=== PATIENT | female | born 1985 | race Hispanic/Latino ===

== ENCOUNTER 2019-05-29 04:02 | Emergency (ER) | payer MEDICAID, SELFPAY ==
[~2019-05-29] VITALS: Ht 167.6 cm; Wt 111.8 kg
[2019-05-29] MEDS ORDERED: HYDR-3713 PO (04:10)
[2019-05-29] MEDS ORDERED: NORCO, ANEXSIA 5/325MG TABLET (HYDROcodone/ACETAMINOPHEN) PO ONE (07:45)
[2019-05-29 08:22] VITALS: BP 136/74
== END 2019-05-29 08:23 | disposition home or self-care (01) ==
LOC: M ED 04:02
DX: O99.89 Other specified diseases and conditions complicating pregnancy, childbirth and the puerperium (principal); G89.29 Other chronic pain; R51 Headache; Z3A.20 20 weeks gestation of pregnancy

== ENCOUNTER 2019-06-23 13:19 | Emergency (ER) | payer MEDICAID ==
[~2019-06-23] VITALS: Ht 167.6 cm; Wt 111.1 kg
[~2019-06-23 13:19] MED LIST changes: -MACR100C43 PO; -NORC1TAB7 PO; -ONDA4TAB6 PO; -SERT50TA29
[2019-06-23] MEDS ORDERED: SERT50TA29 (13:29)
[2019-06-23 14:08] LABS: BASO % 0.2 % (0.0-1.0); EOS # 0.1 10^3/uL (0.0-0.5); EOS % 0.5 % (0.0-3.0); HEMATOCRIT 38.8 % (36.0-47.0); HEMOGLOBIN 12.3 g/dl (12.0-15.5); LYMPH # 1.5 10^3/uL (1.5-5.0); LYMPH % 13.2 % (24.0-44.0); MEAN CORPUSCULAR HGB CONC 31.7 g/dl (32.0-36.5); MEAN CORPUSCULAR VOLUME 88.4 fl (80.0-96.0); MONO # 0.5 10^3/uL (0.0-0.8); MONO % 4.3 % (0.0-5.0); NEUTROPHILS % 81.3 % (36.0-66.0); PLATELET COUNT, AUTOMATED 296 10^3/uL (150-450); RED BLOOD COUNT 4.39 10^6/uL (4.00-5.40); WHITE BLOOD COUNT 11.1 10^3/uL (4.0-10.0)
[2019-06-23 14:28] LABS: BLOOD UREA NITROGEN 6 MG/DL (7-18); CALCIUM LEVEL 8.4 MG/DL (8.5-10.1); CARBON DIOXIDE LEVEL 24 MEQ/L (21-32); CHLORIDE LEVEL 106 MEQ/L (98-107); CREATININE FOR GFR 0.41 MG/DL (0.55-1.30); GLOMERULAR FILTRATION RATE > 60.0 (>60); GLUCOSE, FASTING 80 MG/DL (70-100); POTASSIUM SERUM 4.1 MEQ/L (3.5-5.1); SODIUM LEVEL 138 MEQ/L (136-145)
[2019-06-23] MEDS ORDERED: NORCO, ANEXSIA 5/325MG TABLET (HYDROcodone/ACETAMINOPHEN) PO ONE (16:30)
[2019-06-23] MEDS ORDERED: NS 1,000 ML IV ONE (16:30)
[2019-06-23] MEDS ORDERED: ONDANSETRON 4MG/2ML VIAL (J2405) IV ONE (16:30)
--- NOTE | 2019-06-23 17:45 | REP ---
OB ULTRASOUND: Real-time sonographic evaluation of the gravid uterus is performed. There is a single living intrauterine gestation. The estimated gestational age is 25 weeks 2 days based on today's ultrasound, 25 weeks 0 days based on LMP, EDC based on LMP 10/06/2019. There is appropriate growth. BPD 61 mm = 24 weeks 6 days, at the 48th percentile. HC 231 mm = 25 weeks 1 days, at the 53rd percentile. AC 213 mm = 25 weeks 6 days, at the 67th percentile. Femur length 47 mm = 25 weeks 4 days, at the 62nd percentile. HC/AC ratio 1.09 within normal range. Estimated weight 830 grams at the 61st percentile. Cervix is closed and measures 3.3 cm in length. heart rate 155 beats per minute. Visualized anatomy today includes the stomach, cord insertion, three vessel cord, kidneys, bladder and spine which were all grossly unremarkable. There is limited visualization of the anatomy due to patient's anterior abdominal wall hernia. Lateral ventricles and posterior fossa appear unremarkable. position is vertex. Placenta is anterior and grade 0 with no previa or abruption. Amniotic fluid appears within normal limits. Electronically Signed by John Chaney MD 06/24/2019 10:28 P
[2019-06-23 20:23] LABS: ALBUMIN 2.6 GM/DL (3.2-5.2); ALT/SGPT 25 U/L (12-78); BILIRUBIN,DIRECT 0.1 MG/DL (0.0-0.2); BILIRUBIN,TOTAL 0.3 MG/DL (0.2-1.0); TOTAL PROTEIN 6.8 GM/DL (6.4-8.2)
[2019-06-23] MEDS ORDERED: ONDA4TAB6 PO (20:39)
[2019-06-23] MEDS ORDERED: MACR100C43 PO (20:39)
[2019-06-23] MEDS ORDERED: NORC1TAB7 PO (20:39)
[2019-06-23 20:51] VITALS: BP 129/71
--- NOTE | 2019-06-24 07:55 | REP ---
ULTRASOUND ANTERIOR ABDOMINAL WALL: Real-time sonographic evaluation of the anterior abdominal wall performed at the site of a suspected hernia. In the midline of the abdomen, there appears to be a defect of the abdominal wall approximately 3.8 cm in diameter. There appears to be a small amount of mesenteric fat protruding through the defect. This was not reducible with transducer pressure. Preliminary report provided by [facility] at the time of the exam. Electronically Signed by John Chaney MD 06/24/2019 10:37 P
--- NOTE | 2019-06-24 07:58 | REP ---
ULTRASOUND RIGHT LOWER QUADRANT: Real-time sonographic evaluation of the right lower quadrant to evaluate possible appendicitis. The appendix is not definitely visualized. The study is limited due to patient body habitus and bowel gas. The patient is . The heart rate is 147 beats per minute. Incidental note is made of gallstones in the gallbladder. Common bile duct measures 5 mm. Preliminary report provided by [facility] at the time of the exam. Electronically Signed by John Chaney MD 06/24/2019 10:38 P
== END 2019-06-23 20:53 | disposition home or self-care (01) ==
LOC: M ED 13:19
DX: O99.89 Other specified diseases and conditions complicating pregnancy, childbirth and the puerperium (principal); K43.9 Ventral hernia without obstruction or gangrene; O99.52 Diseases of the respiratory system complicating childbirth; J45.909 Unspecified asthma, uncomplicated; O26.619 Liver and biliary tract disorders in pregnancy, unspecified trimester; Z79.2 Long term (current) use of antibiotics; Z86.19 Personal history of other infectious and parasitic diseases; Z3A.25 25 weeks gestation of pregnancy; R93.9 Diagnostic imaging inconclusive due to excess body fat of patient
CPT/HCPCS: 76705; 76811; 80048; 80076; 81001; 83605; 84702; 85025; 85027; 86762; 86780; 86803; 86850; 86900; 86901; 87086; 87340; 87389; 96374; 99284; J2405

== ENCOUNTER → 2019-06-23 | Outpatient (REF) | payer MEDICAID ==
[~2019-06-23] MED LIST: HYDR-3713 PO; MACR100C43 PO; NORC1TAB7 PO; ONDA4TAB6 PO; SERT50TA29
[2019-06-23 13:42] LABS: HEMOGLOBIN 12.2 g/dl (12.0-15.5); MEAN CORPUSCULAR HEMOGLOBIN 28.8 pg (27.0-33.0); MEAN CORPUSCULAR VOLUME 87.5 fl (80.0-96.0); PLATELET COUNT, AUTOMATED 309 10^3/uL (150-450); RED BLOOD COUNT 4.23 10^6/uL (4.00-5.40); WHITE BLOOD COUNT 9.9 10^3/uL (4.0-10.0)
[2019-06-24 02:42] LABS: HCG, SERUM QUANTITATIVE 9793 MIU/ML
[2019-06-24 10:34] LABS: RUBELLA IgG QUALITATIVE IMMUNE (IMMUNE)
[2019-06-24 10:35] LABS: HEPATITIS B SURFACE ANTIGEN NEGATIVE (NEGATIVE)
[2019-06-24 11:03] LABS: HEPATITIS C VIRUS ABY INDEX < 0.0 INDEX (<0.8)
[2019-06-24 11:04] LABS: HIV 1&2 SCREEN CENTAUR NEGATIVE (NEGATIVE)
[2019-06-25 14:07] LABS: HEMOGLOBIN A 97.7 % (96.4-98.8); HEMOGLOBIN A2 2.3 % (1.8-3.2); HGB SOLUBILITY Negative (Negative)
== END ==
LOC: M LAB REF 12:46
PROVIDERS: ATTEND Obstetrics & Gynecology
DX: O36.80X0 Pregnancy with inconclusive fetal viability, not applicable or unspecified (principal)

== ENCOUNTER → 2019-07-14 | Outpatient (CLI) | payer MEDICAID, OTHER ==
[~2019-07-14] MED LIST changes: +MACR100C43 PO; +NORC1TAB7 PO; +ONDA4TAB6 PO; +SERT50TA29
--- NOTE | 2019-07-14 16:37 | REP ---
Clinical: Anatomical evaluation. Comparison: 06/23/2019 . Findings: Examination demonstrates a single live intrauterine in cephalic presentation. motion is identified by technologist. Placenta is noted the anterior and grade I without evidence for placenta previa or abruption. Amniotic fluid volume is normal. Cervix measures 4.3 cm in length and appears closed. No evidence for nuchal cord. Gestational age by LMP 28 weeks 0 days with SHEY 10/06/2019 . Gestational age by current measurements 28 weeks 5 days with SHEY 10/01/2019 . FHR equals 153 beats per minute. Estimated weight 1294 grams ( 63rd percentile). Amniotic fluid index: 17.3 cm Anatomical assessment demonstrates normal structures including cranium, choroid plexus, cavum, cerebellum/posterior fossa, facial features, lungs, four-chamber heart/ventricular outflow tracts, diaphragm, stomach, cord insertion/three-vessel cord, kidneys/bladder, and extremities. Impression: 1. Single live intrauterine in cephalic presentation demonstrating appropriate interval growth. 2. In conjunction with prior examination anatomical assessment is complete and normal. Electronically Signed by Rufus Marinelli MD 07/14/2019 04:29 P
== END ==
LOC: M RAD 15:04
PROVIDERS: ATTEND Obstetrics & Gynecology
DX: Z34.82 Encounter for supervision of other normal pregnancy, second trimester (principal)

== ENCOUNTER → 2019-07-27 | Outpatient (CLI) | payer OTHER ==
[2019-07-27 14:20] LABS: HEMATOCRIT 36.5 % (36.0-47.0); MEAN CORPUSCULAR HEMOGLOBIN 28.9 pg (27.0-33.0); MEAN CORPUSCULAR HGB CONC 32.9 g/dl (32.0-36.5); PLATELET COUNT, AUTOMATED 269 10^3/uL (150-450); RED BLOOD COUNT 4.15 10^6/uL (4.00-5.40); WHITE BLOOD COUNT 9.3 10^3/uL (4.0-10.0)
== END ==
LOC: M LAB 12:35
PROVIDERS: ATTEND Physician Assistant
DX: Z34.03 Encounter for supervision of normal first pregnancy, third trimester (principal)

== ENCOUNTER → 2019-07-27 | Outpatient (CLI) | payer OTHER ==
[2019-07-27 14:20] LABS: BASO % 0.2 % (0.0-1.0); EOS # 0.1 10^3/uL (0.0-0.5); EOS % 1.2 % (0.0-3.0); HEMATOCRIT 36.3 % (36.0-47.0); HEMOGLOBIN 12.1 g/dl (12.0-15.5); LYMPH # 1.4 10^3/uL (1.5-5.0); LYMPH % 15.3 % (24.0-44.0); MEAN CORPUSCULAR HEMOGLOBIN 29.2 pg (27.0-33.0); MEAN CORPUSCULAR HGB CONC 33.3 g/dl (32.0-36.5); MEAN CORPUSCULAR VOLUME 87.7 fl (80.0-96.0); MONO # 0.4 10^3/uL (0.0-0.8); MONO % 4.6 % (0.0-5.0); NEUTROPHILS # 7.4 10^3/uL (1.5-8.5); PLATELET COUNT, AUTOMATED 272 10^3/uL (150-450); RED BLOOD COUNT 4.14 10^6/uL (4.00-5.40); WHITE BLOOD COUNT 9.4 10^3/uL (4.0-10.0)
[2019-07-27 14:53] LABS: ALBUMIN 2.3 GM/DL (3.2-5.2); ALT/SGPT 32 U/L (12-78); BILIRUBIN,TOTAL 0.2 MG/DL (0.2-1.0); BLOOD UREA NITROGEN 7 MG/DL (7-18); CALCIUM LEVEL 8.3 MG/DL (8.5-10.1); CARBON DIOXIDE LEVEL 25 MEQ/L (21-32); CHLORIDE LEVEL 106 MEQ/L (98-107); CREATININE FOR GFR 0.46 MG/DL (0.55-1.30); FERRITIN 10 NG/ML (8-252); GLOMERULAR FILTRATION RATE > 60.0 (>60); GLUCOSE, FASTING 144 MG/DL (70-100); IRON (FE) 66 UG/DL (50-170); RHEUMATOID FACTOR QUANT < 10.0 IU/ML (<15.0); SODIUM LEVEL 137 MEQ/L (136-145); TOTAL PROTEIN 6.3 GM/DL (6.4-8.2)
[2019-07-27 15:00] LABS: VITAMIN B12 LEVEL 296 PG/ML (247-911)
[2019-07-28 14:17] LABS: ANTI DOUBLE STRAND-DNA AB 1 IU/mL (0-9); ANTINUCLEAR ANTIBODIES DIRECT Positive (Negative); RNP ANTIBODIES 1.3 AI (0.0-0.9); SJOGREN'S ANTI SS-A <0.2 AI (0.0-0.9); SJOGREN'S ANTI SS-B <0.2 AI (0.0-0.9); SMITH ANTIBODIES <0.2 AI (0.0-0.9)
== END ==
LOC: M LAB 12:32
PROVIDERS: ATTEND Physician Assistant
DX: M25.532 Pain in left wrist (principal)

== ENCOUNTER → 2019-08-04 | Outpatient (CLI) | payer OTHER | LOC: M LAB 07:12 | PROVIDERS: ATTEND Obstetrics & Gynecology | DX: R73.02 Impaired glucose tolerance (oral) (principal) ==

== ENCOUNTER 2019-08-16 00:10 | Outpatient (CLI) | payer OTHER ==
[~2019-08-16] VITALS: Ht 167.6 cm; Wt 112.3 kg
[2019-08-16 00:44] VITALS: BP 137/89
[2019-08-16] MEDS ORDERED: ACETAMINOPHEN 500 MG TAB PO ONE (01:00)
[2019-08-16 06:53] VITALS: BP 129/77
[2019-08-16] MEDS ORDERED: CYCL10TA PO (14:45)
== END 2019-08-16 06:53 ==
LOC: M LDO 00:10
PROVIDERS: ATTEND Obstetrics & Gynecology
DX: O47.03 False labor before 37 completed weeks of gestation, third trimester (principal); Z3A.34 34 weeks gestation of pregnancy

== ENCOUNTER 2019-08-28 19:28 | Outpatient (CLI) | payer OTHER ==
[~2019-08-28] VITALS: Ht 167.6 cm; Wt 113.9 kg
[~2019-08-28 19:28] MED LIST changes: +CYCL10TA PO
[2019-08-28 20:22] VITALS: BP 136/81
--- NOTE | 2019-08-28 20:28 | IPNPDOC ---
Text Note Date of Service The patient was seen on 08/28/19. NOTE 33 yo at 34+4 EGA presenting to the labor floor complaining of leakage of fluid. She has been feeling more moisture all day, and has noticed increased discharge which is thicker than normal. It is worse when she changes position from sitting to standing. She urinates a little when she coughs. She says that she soaked a panty liner, she did not have a pad at home. She presented to the labor floor to rule out rupture of membranes. Gravid female in no acute distress Sterile Vaginal Exam: No pooling, cervix closed, thick white discharge Nitrazine negative Slide: no ferning or hyphae FHR: 150 bpm, mod variability [place]: No contractions Rupture of membranes ruled out. Most likely due to leaking urine. Warning signs, signs and symptoms of labor and leakage of fluid discussed. Contact information given. She should follow up with Dr. Valerio as scheduled on 09/01/2019. GME ATTESTATION GME ATTESTATION My faculty preceptor for this patient encounter was physically present during the encounter and was fully available. All aspects of the patient interview, examination, medical decision making process, and medical care plan development were reviewed and approved by the faculty preceptor. The faculty preceptor is aware and concurs with the plan as stated in the body of this note and will attest to such by his/her cosignature. ALEKSEY BRICENO D.O. Aug 28, 2019 20:28
== END 2019-08-28 20:25 | disposition home or self-care (01) ==
LOC: M LDO 19:28
PROVIDERS: ATTEND Advanced Practice Midwife
DX: O26.893 Other specified pregnancy related conditions, third trimester (principal); R32 Unspecified urinary incontinence; Z3A.34 34 weeks gestation of pregnancy; Z79.899 Other long term (current) drug therapy

== ENCOUNTER → 2019-09-01 | Outpatient (REF) | payer OTHER | LOC: M LAB REF 16:10 | PROVIDERS: ATTEND Obstetrics & Gynecology | DX: Z34.83 Encounter for supervision of other normal pregnancy, third trimester (principal) ==

== ENCOUNTER 2019-09-23 10:43 | Inpatient (IN) | payer OTHER ==
[~2019-09-23] VITALS: Ht 167.6 cm; Wt 118.0 kg
[2019-09-23] VITALS (7 sets, daily range): BP systolic 117–135; BP diastolic 70–87
[~2019-09-23 10:43] MED LIST changes: +CYCL-707 PO; -CYCL10TA PO
[2019-09-23] MEDS ORDERED: miSOPROStol 50 MCG 1/2 TAB (S0191) PO PRN (11:00)
[2019-09-23] MEDS: LR 1,000 ML IV SCH ×2 (12:00→15:51)
[2019-09-23 12:33] LABS: HEMATOCRIT 32.8 % (36.0-47.0); MEAN CORPUSCULAR HEMOGLOBIN 28.8 pg (27.0-33.0); MEAN CORPUSCULAR HGB CONC 33.5 g/dl (32.0-36.5); MEAN CORPUSCULAR VOLUME 85.9 fl (80.0-96.0); PLATELET COUNT, AUTOMATED 176 10^3/uL (150-450); RED BLOOD COUNT 3.82 10^6/uL (4.00-5.40)
[2019-09-23 13:01] LABS: ALT/SGPT 24 U/L (12-78); BILIRUBIN,TOTAL 0.2 MG/DL (0.2-1.0); CREATININE FOR GFR 0.48 MG/DL (0.55-1.30); GLOMERULAR FILTRATION RATE > 60.0 (>60); LDH LACTATE DEHYDROGENASE 243 U/L (84-246); URIC ACID 4.7 MG/DL (2.6-6.0)
[2019-09-23] MEDS ORDERED: PRENTAB9 PO (13:31)
[2019-09-23] MEDS ORDERED: MAPA500T2 PO (13:31)
[2019-09-23 13:55] LABS: CREATININE,RANDOM URINE 38.4 MG/DL; TOTAL PROTEIN,RANDOM URINE 101.1 MG/DL (0.0-12.0)
--- NOTE | 2019-09-23 14:22 | REP ---
LIMITED OB ULTRASOUND: REASON: Assess position and amniotic fluid. Multiple ultrasonographic images of the gravid uterus show a single living intrauterine gestation in the myriam breech presentation. Doppler interrogation of the heart shows a heart rate of 131 beats per minute. The placenta is anterior and not low lying. The subjective amniotic fluid volume is within normal limits. The calculated amniotic fluid index is 16.6 within the expected range 7.3 to 23.5. The umbilical cord was seen to drape over the neck. A nuchal cord cannot be ruled out. Doppler interrogation of the umbilical artery shows an A/B ratio of 2.07. This is within normal range. The placenta is anterior and not low lying. IMPRESSION: Single living intrauterine gestation as described above. No further workup is requested or performed. Electronically Signed by Pedro Gregory DO 09/23/2019 02:26 P
--- NOTE | 2019-09-23 15:35 | REP ---
OBSTETRIC SONOGRAPHY: Limited followup exam. HISTORY: Estimated weight. Comparison study earlier this date. The patient returns for new request of estimated weight. FINDINGS: There is evidence of appropriate interval growth since prior study from July 14, 2019. Biometry Chart: BPD 9.2 cm = 37 weeks 3 days HC 35.1 cm = 40 weeks 6 days AC 35.0 cm = 38 weeks 6 days HL 7.8 cm = 39 weeks 5 days HC/AC ratio normal 1.00 Cephalic index normal 0.72. Estimated weight 3695 grams, 8 pounds 2 ounces, 73rd percentile for 38 weeks 2 days. KARLENE normal 16.6 cm. heart rate 150 beats per minute. S/D ratio in the umbilical cord artery by Doppler normal 2.07. IMPRESSION: Single intrauterine gestation at 39 weeks 2 days by today's composite criteria. Estimated weight 73rd percentile 38 weeks 2 days. 8 pounds 2 ounces. Electronically Signed by Sadiq Reagan MD 09/23/2019 03:43 P
[2019-09-23] MEDS ORDERED: ceFAZolin SOD 2 GM in IV 1 EA IV ONE (16:45)
[2019-09-23] MEDS ORDERED: BICITRA 30ML SOLN UDC PO ONE (16:45)
[2019-09-23] MEDS ORDERED: AZITHROMYCIN INJ 500 MG, VIAL MATE ADAPTER 1 EACH in D5W 250 ML IV ONE (17:00)
[2019-09-23] MEDS ORDERED: OXYTOCIN 30 UNITS IN 0.9% NaCl 500ML IV BAG (J2590) As Ordered ONE (18:58)
[2019-09-23] MEDS ORDERED: MORPHINE PRES-FREE INJ 10 MG/10 ML VIAL (J2274) As Ordered ONE (18:58)
[2019-09-23] MEDS ORDERED: NALOXONE INJ 0.4MG/1ML VIAL (J2310 PER 1MG) IV PRN ×2 (19:56)
[2019-09-23] MEDS ORDERED: ONDANSETRON 4MG/2ML VIAL IV PRN ×2 (19:56→21:00)
[2019-09-23] MEDS ORDERED: diphenhydrAMINE 50MG/ML VIAL (J1200) IV PRN (19:56)
[2019-09-23] MEDS ORDERED: METOCLOPRAMIDE INJ 10MG/2ML VIAL (J2765 PER 1) IV PRN (19:56)
[2019-09-23] MEDS ORDERED: NALBUPHINE HCL 10 MG/ML AMP (J2300) IV PRN (19:56)
[2019-09-23] MEDS ORDERED: BUPIVACAINE/DEXTROSE 0.75% 2 ML AMP As Ordered ONE (19:58)
[2019-09-23] MEDS ORDERED: dexameTHASONE 4 MG/ML 1ML VIAL (J1100 PER 1MG) As Ordered ONE (20:14)
[2019-09-23] MEDS ORDERED: ONDANSETRON 4MG/2ML VIAL As Ordered ONE ×2 (20:14→21:34)
[2019-09-23] MEDS ORDERED: PHENYLephrine HCL 500 MCG/5 ML (100MCG/ML) SYRINGE (J2370) As Ordered ONE (20:15)
[2019-09-23] MEDS ORDERED: ePHEDrine SULFATE 25 MG/5 ML(5MG/ML) SYRINGE As Ordered ONE (20:15)
[2019-09-23 20:33] LABS: CORD GAS HCO3 A 25.4 MEQ/L; CORD GAS O2 SAT A 56.9 %; CORD GAS PCO2 A 58.8 mmHg; CORD GAS PH A 7.253 UNITS; CORD GAS PO2 A 29.5 mmHg; CORD GAS TCO2 A 27.2 MEQ/L
[2019-09-23 20:35] LABS: CORD GAS ABE V -1.9; CORD GAS HCO3 V 23.3 MEQ/L; CORD GAS PCO2 V 41.4 mmHg; CORD GAS PH V 7.369 UNITS; CORD GAS PO2 V 19.6 mmHg; CORD GAS SBC V 21.5 MEQ/L; CORD GAS TCO2 V 24.6 MEQ/L
[2019-09-23] MEDS ORDERED: KETOROLAC 60 MG/2 ML VIAL As Ordered ONE (20:38)
[2019-09-23] MEDS ORDERED: oxyCODONE 5MG TAB PO PRN (21:00)
[2019-09-23] MEDS ORDERED: KETOROLAC 30 MG/ML 1ML VIAL IV PRN (21:00)
[2019-09-23] MEDS ORDERED: fentaNYL 100 MCG/2 ML INJECTION (J3010) IV PRN (21:00)
[2019-09-23] MEDS ORDERED: OXYTOCIN DRIP 30 UNITS in IV 1 EA IV SCH (21:02)
[2019-09-23] MEDS ORDERED: MEASLES,MUMPS,RUBELLA VACCINE INJ (MMR-II) (90707) SC SCH (21:15)
[2019-09-23] MEDS ORDERED: MOM 30ML SUSPENSION UDC PO PRN (21:15)
[2019-09-23] MEDS ORDERED: ONDANSETRON 4 MG TAB PO PRN (21:15)
[2019-09-23] MEDS ORDERED: RHOGAM 300 MCG (1500 IU) INJ (J2790) IM SCH (21:15)
[2019-09-23] MEDS: PERCOCET 5MG/325MG TAB PO PRN (23:58)
[2019-09-24 01:15] VITALS: BP 131/69
[2019-09-24 02:17] VITALS: BP 135/65
[2019-09-24] MEDS: IBUPROFEN 800 MG TAB PO SCH ×3 (04:58→21:19)
[2019-09-24 05:14] VITALS: BP 122/69
[2019-09-24] MEDS: PERCOCET 5MG/325MG TAB PO PRN ×2 (06:28→23:51)
[2019-09-24 06:55] LABS: HEMATOCRIT 30.9 % (36.0-47.0); HEMOGLOBIN 10.2 g/dl (12.0-15.5); MEAN CORPUSCULAR HEMOGLOBIN 28.5 pg (27.0-33.0); MEAN CORPUSCULAR VOLUME 86.3 fl (80.0-96.0); PLATELET COUNT, AUTOMATED 182 10^3/uL (150-450); RED BLOOD COUNT 3.58 10^6/uL (4.00-5.40); WHITE BLOOD COUNT 14.7 10^3/uL (4.0-10.0)
[2019-09-24 07:24] LABS: ALT/SGPT 19 U/L (12-78); BILIRUBIN,TOTAL 0.2 MG/DL (0.2-1.0); CREATININE FOR GFR 0.51 MG/DL (0.55-1.30); GLOMERULAR FILTRATION RATE > 60.0 (>60); LDH LACTATE DEHYDROGENASE 206 U/L (84-246); URIC ACID 4.6 MG/DL (2.6-6.0)
[2019-09-24] MEDS: PRENATAL VITAMINS CHEWABLE TABLET PO SCH (09:00)
[2019-09-24] MEDS: DOCUSATE SODIUM 100 MG CAP PO SCH ×2 (10:19→21:19)
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
--- NOTE | 2019-09-24 21:08 | RO ---
DATE OF PROCEDURE: 09/23/2019 Ashley is a 34-year-old female, 3, para 2-0-0-2 who was admitted at 38-2/7 weeks gestation with preeclampsia. She was found to be in breech presentation, after a bedside ultrasound, confirmed by official ultrasound. In having an extensive discussion with the patient, the patient and the father of the baby decided to proceed with delivery via primary section. Risks and benefit discussed, and we will proceed with the primary section. PREOPERATIVE DIAGNOSES: 1. Term with preeclampsia. 2. Breech presentation, requesting delivery via primary section. POSTOPERATIVE DIAGNOSES: 1. Term with preeclampsia. 2. Breech presentation, requesting delivery via primary section. PROCEDURE: Primary low transverse section. SURGEON: Alberto Valerio DO REGIONAL VICE PRESIDENT SURGICAL SALES: Kimmy Ascencio CNM ANESTHESIA: COMPLICATIONS: None. ESTIMATED BLOOD LOSS: 500 mL. FINDINGS: Live female in oblique position. scores 8 and 9. weight 7 pounds. Normal-appearing tubes and ovaries. DESCRIPTION OF PROCEDURE: After obtaining informed consent, the patient was taken to the operating room where spinal anesthetic was found to be adequate. She was then draped and prepped in the usual sterile fashion in the supine position. At this point, with the help of Kimmy Ascencio, my office services assistant, a Pfannenstiel incision was made. This was carried down to fascia. Fascia was incised in a midline fashion and carried through laterally. Superior aspect of the fascia was then grasped with Teresa clamps, tented off and dissected off the rectus muscles sharply. The inferior aspect was dissected off in a similar fashion. Rectus muscles midline fashion. Peritoneum identified, peritoneal cavity entered bluntly. Superior and inferior dissection of the peritoneum was then done with good visualization of bladder. At this point, a Mobius skin retractor was placed. was then delivered after an internal cephalic version in a vertex position. The nose and mouth was bulb suctioned. Cord doubly clamped and cut, and the infant was handed over to the waiting warmer. Cord blood and cord gas were sent. Placenta removed manually. Uterus cleared of all clot and debris, and the uterine incision was then repaired in two separate layers of #0 Vicryl suture. Pelvis copiously irrigated with normal saline and suctioned out. Attention turned to the peritoneum, which was closed in a running fashion using #2-0 Vicryl. Fascia closed in two separate segments of #0 Vicryl sutures. All superficial bleeders coagulated, and the skin was reapproximated in a subcuticular fashion using #3-0 Vicryl on a Sebastian. Steri-Strips placed. The patient tolerated procedure well. She was then transferred to recovery room in stable condition.
[2019-09-24] MEDS ORDERED: diphenhydrAMINE 50MG CAP PO ONE (21:45)
[2019-09-24 22:00] VITALS: BP 120/68
[2019-09-25] MEDS: IBUPROFEN 800 MG TAB PO SCH ×2 (05:59→12:21)
[2019-09-25 06:00] VITALS: BP 114/59
[2019-09-25] MEDS ORDERED: BOOSTRIX/ADACEL VACCINE (DIPHTH/PERTUSS/ACELL/TETANUS) 0.5ML SYR IM ONE (09:00)
[2019-09-25] MEDS: PRENATAL VITAMINS CHEWABLE TABLET PO SCH (09:08)
[2019-09-25] MEDS: DOCUSATE SODIUM 100 MG CAP PO SCH (09:08)
[2019-09-25] MEDS ORDERED: PERCOCET PO (12:10)
[2019-09-25] MEDS ORDERED: IBUP80TA PO (12:10)
--- NOTE | 2019-09-29 16:22 | DSES ---
DATE OF ADMISSION: 09/23/2019 DATE OF DISCHARGE: 09/25/2019 FINAL DIAGNOSIS: Term in breech presentation. PROCEDURE DONE DURING THIS ADMISSION: Primary low transverse section. CONDITION UPON DISCHARGE: Stable. BRIEF HISTORY: Ashley is a 34-year-old female, 2, para 1-0-0-1, who was admitted at 38-4/7 weeks gestation with preeclampsia. She was found to be in breech presentation. At her request, a decision was made to proceed with a primary section. She underwent a primary low transverse section, was then transferred to [facility] for postoperative care. Postoperatively, she did well, remained afebrile all throughout her hospital stay. On postoperative day #2, she was found to be in stable condition. At this point, a decision was made to discharge the patient home. A prescription for ibuprofen and Percocet was sent for pain. She is further instructed to followup in the office in approximately 2 weeks for an incision check.
== END 2019-09-25 14:15 | disposition home or self-care (01) | DRG 540 ==
LOC: M LDI 10:43 → M OBS 22:35
PROVIDERS: ADMIT Obstetrics & Gynecology; ATTEND Obstetrics & Gynecology
PROC: 10D00Z1 Extraction of Products of Conception, Low, Open Approach (ICD-10-PCS; principal; 2019-09-23 20:30)
DX: O32.1XX0 Maternal care for breech presentation, not applicable or unspecified (principal); Z3A.38 38 weeks gestation of pregnancy; O14.94 Unspecified pre-eclampsia, complicating childbirth; Z37.0 Single live birth; O99.824 Streptococcus B carrier state complicating childbirth

== ENCOUNTER 2019-09-28 21:33 | Emergency (ER) | payer OTHER ==
[~2019-09-28] VITALS: Ht 167.6 cm; Wt 113.6 kg
[~2019-09-28 21:33] MED LIST changes: +IBUP80TA PO; +MAPA500T2 PO; +PERCOCET PO; +PRENTAB9 PO
[2019-09-28] MEDS ORDERED: SERT50TA29 PO (21:43)
[2019-09-28] MEDS ORDERED: MORPHINE 4 MG/ML 1ML VIAL/SYRINGE (J2270) IV ONE (22:15)
[2019-09-28] MEDS ORDERED: ONDANSETRON 4MG/2ML VIAL IV ONE (22:15)
[2019-09-28 22:25] LABS: BASO % 0.3 % (0.0-1.0); EOS # 0.1 10^3/uL (0.0-0.5); EOS % 1.8 % (0.0-3.0); HEMATOCRIT 32.1 % (36.0-47.0); HEMOGLOBIN 10.3 g/dl (12.0-15.5); LYMPH # 1.8 10^3/uL (1.5-5.0); LYMPH % 22.3 % (24.0-44.0); MEAN CORPUSCULAR HEMOGLOBIN 28.3 pg (27.0-33.0); MEAN CORPUSCULAR HGB CONC 32.1 g/dl (32.0-36.5); MEAN CORPUSCULAR VOLUME 88.2 fl (80.0-96.0); MONO # 0.8 10^3/uL (0.0-0.8); MONO % 10.3 % (0.0-5.0); NEUTROPHILS # 5.1 10^3/uL (1.5-8.5); NEUTROPHILS % 64.2 % (36.0-66.0); PLATELET COUNT, AUTOMATED 323 10^3/uL (150-450); RED BLOOD COUNT 3.64 10^6/uL (4.00-5.40)
[2019-09-28 22:36] LABS: INR 0.98; PROTHROMBIN TIME 12.7 SECONDS (11.8-14.0)
[2019-09-28 22:42] LABS: PARTIAL THROMBOPLASTIN TIME 26.7 SECONDS (25.0-38.4)
[2019-09-28] MEDS ORDERED: ISOVUE-370 76% 100ML VIAL As Ordered ONE (22:45)
[2019-09-28 22:58] LABS: ALBUMIN 2.1 GM/DL (3.2-5.2); ALT/SGPT 26 U/L (12-78); BILIRUBIN,DIRECT < 0.1 MG/DL (0.0-0.2); BILIRUBIN,TOTAL 0.2 MG/DL (0.2-1.0); BLOOD UREA NITROGEN 10 MG/DL (7-18); CALCIUM LEVEL 8.4 MG/DL (8.5-10.1); CARBON DIOXIDE LEVEL 27 MEQ/L (21-32); CHLORIDE LEVEL 106 MEQ/L (98-107); CREATININE FOR GFR 0.47 MG/DL (0.55-1.30); GLOMERULAR FILTRATION RATE > 60.0 (>60); GLUCOSE, FASTING 86 MG/DL (70-100); MAGNESIUM LEVEL 1.7 MG/DL (1.8-2.4); POTASSIUM SERUM 4.1 MEQ/L (3.5-5.1); SODIUM LEVEL 140 MEQ/L (136-145); URIC ACID 3.5 MG/DL (2.6-6.0)
[2019-09-28 23:44] LABS: APPEARANCE, URINE HAZY (CLEAR); BACTERIA, URINE AUTO NEGATIVE (NEGATIVE); BILIRUBIN, URINE AUTO NEGATIVE (NEGATIVE); BLOOD, URINE BLOOD 3+ (NEGATIVE); COLOR, URINE YELLOW (YELLOW); GLUCOSE, URINE (UA) AUTO NEGATIVE (NEGATIVE); KETONE, URINE AUTO NEGATIVE (NEGATIVE); LEUKOCYTE ESTERASE, URINE AUTO 1+ (NEGATIVE); MUCUS, URINE SMALL (NEGATIVE); NITRITE, URINE AUTO NEGATIVE (NEGATIVE); PROTEIN, URINE AUTO 2+ mg/dL (NEGATIVE); RBC, URINE AUTO 82 /HPF (0-3); SPECIFIC GRAVITY URINE AUTO 1.012 (1.002-1.035); SQUAMOUS EPITHELIAL CELL UR AU 4 /HPF (0-6); TRANSITIONAL EPITHELIAL AUTO 4 /HPF; UROBILINOGEN, URINE AUTO 0.2 mg/dL (0.0-2.0); WBC, URINE AUTO 33 /HPF (0-3)
--- NOTE | 2019-09-28 23:53 | REPVR ---
PROCEDURE INFORMATION: Exam: CT Abdomen And Pelvis With Contrast Exam date and time: 09/28/2019 10:06 PM Age: 34 years old Clinical indication: Abdominal pain; Generalized; Prior surgery; Surgery date: 3-7 days post-operative; Surgery type: C section; Additional info: Abd pain/ recent TECHNIQUE: Imaging protocol: Computed tomography of the abdomen and pelvis with intravenous contrast. Radiation optimization: All CT scans at this facility use at least one of these dose optimization techniques: automated exposure control; mA and/or kV adjustment per patient size (includes targeted exams where dose is matched to clinical indication); or iterative reconstruction. Contrast material: IS0; Contrast volume: 100 ml; Contrast route: AC; COMPARISON: Pelvis, limited US 06/23/2019 5:00 PM FINDINGS: Heart: No cardiomegaly or pericardial effusion. Lungs: The imaged portions of the lung bases are clear. The lungs were not fully imaged. Diaphragm: Intact. Liver: No liver lesion is seen. The contour of the liver is smooth. The liver is enlarged and measures 18.3 cm in craniocaudal dimension at the level of the right midclavicular line. Gallbladder and bile ducts: The gallbladder is distended. No calcified gallstones are seen. No gallbladder wall thickening, pericholecystic fluid, or pericholecystic inflammatory changes are identified. No dilation of the bile ducts is noted. No calcified stones are seen in the common bile duct. Pancreas: Normal. No dilation of the main pancreatic duct is noted. There is no inflammatory fat stranding around the pancreas to suggest acute pancreatitis. Spleen: Normal. No splenomegaly is noted. Incidental note is made of two small accessory spleens. Adrenals: Normal. No adrenal mass is noted. Kidneys and ureters: The kidneys are normal in appearance. No renal lesion is noted. No stones are noted in the kidneys or ureters. There is no hydronephrosis or hydroureter. There are no wedge-shaped areas of low attenuation in the kidneys to suggest pyelonephritis. There is no renal abscess or perinephric fluid collection. Stomach and bowel: The stomach is decompressed, limiting its optimal evaluation. The small bowel is unremarkable. There is no evidence for a bowel obstruction, strangulation, diverticulosis, diverticulitis, colitis, perforated viscus, pneumatosis intestinalis, intussusception, or volvulus. Appendix: Normal. There is no evidence for appendicitis. Intraperitoneal space: There is a 2 cm x 4.3 cm x 2.6 cm fluid collection containing a punctate focus of gas within the left side of the uterus along the cesarian section scar (images 105-112 of the axial series 201). Retroperitoneal space: No retroperitoneal fluid collection is noted. Vasculature: The abdominal aorta is patent, normal in caliber, and there is no dissection. The iliac arteries, common femoral arteries, renal arteries, celiac artery, superior mesenteric artery, and inferior mesenteric artery are patent. The portal veins, splenic vein, superior mesenteric vein, inferior mesenteric vein, and renal veins are patent. Lymph nodes: No enlarged lymph nodes. Bladder: The distended urinary bladder is normal in appearance. No stones or masses are seen in the bladder. Reproductive: The uterus is enlarged, anteverted, and there is a lower transverse section scar with punctate foci of gas within the uterus at the site of the scar. The ovaries are unremarkable. Bones/joints: No fracture or dislocation is noted. There is no suspicious osteolytic or osteoblastic lesion. There is a mild levoscoliosis of the lumbar spine. Soft tissues: There is a large midline ventral hernia located just above the umbilicus, which contains a portion of the mid transverse colon. There is a horizontal incision scar in the anterior pelvic wall. There is a small amount of hemorrhage and gas in the subcutaneous tissues of the anterior pelvic wall. There is nonspecific edema in the subcutaneous tissues posteriorly along the midline of the lumbar spine. IMPRESSION: 1. Status post section, and there is a 2 cm x 4.3 cm x 2.6 cm fluid collection containing a punctate focus of gas in the left side of the pelvis abutting the uterus, which may represent an abscess or postoperative seroma. 2. Large midline ventral hernia located just above the umbilicus, which contains a portion of the mid transverse colon. No bowel obstruction or strangulation. 3. Hepatomegaly. Electronically signed by: Ismael Henao On 09/28/2019 23:53:34 PM
[2019-09-29] MEDS ORDERED: KEFL500C17 PO (00:15)
[2019-09-29] MEDS ORDERED: diphenhydrAMINE 25MG CAP PO ONE (00:15)
[2019-09-29] MEDS ORDERED: COLA100C5 PO (00:15)
[2019-09-29 00:21] VITALS: BP 148/81
[2019-09-29] MEDS ORDERED: LACTOBACILLUS ACIDOPHILUS CAP (BACID) PO ONE (00:30)
[2019-09-29] MEDS ORDERED: CEPHALEXIN 500 MG CAP PO ONE (00:30)
--- NOTE | 2019-09-29 14:22 | ED PDOC ---
Post-Departure Follow-Up ct abd/p faxed to dr jiménez for fu Alis Sam MD September 29, 2019 14:22
== END 2019-09-29 00:53 | disposition home or self-care (01) ==
LOC: M ED 21:33
DX: G89.18 Other acute postprocedural pain (principal); R03.0 Elevated blood-pressure reading, without diagnosis of hypertension; R60.0 Localized edema; G50.0 Trigeminal neuralgia; J45.909 Unspecified asthma, uncomplicated; M26.629 Arthralgia of temporomandibular joint, unspecified side; F60.2 Antisocial personality disorder; F41.9 Anxiety disorder, unspecified; F32.9 Major depressive disorder, single episode, unspecified
CPT/HCPCS: 36415; 74177; 80048; 80076; 81001; 83735; 84550; 85025; 85610; 85730; 86850; 86900; 86901; 87086; 96374; 96375; 99284; J2270; J2405; Q9967

== ENCOUNTER → 2019-11-18 | Outpatient (CLI) | payer OTHER ==
[~2019-11-18] MED LIST changes: +COLA100C5 PO; +ISOVUE-370 76% 100ML VIAL As Ordered ONE; +KEFL500C17 PO; +PROAAER10 INH; +SERT50TA29 PO
--- NOTE | 2019-11-18 10:11 | REP ---
CT neck:. 11/18/2019. Indication: Neck pain. Neck fullness. Technique: Axial images of the neck soft tissues were obtained following IV administration of iodinated contrast with sagittal and coronal reconstructions provided. Comparison: None. Findings: There are no abnormal solid soft tissue masses, abnormal fluid collections or cervical lymphadenopathy. There are punctate radiopaque foreign bodies within the submental region. Loss the visualized lungs are clear. No significant ocular, intraorbital or intracranial abnormalities are detected. The paranasal sinuses and mastoid air cells are essentially clear. Impression: No cervical lymphadenopathy, abnormal solid soft tissue mass or abnormal fluid collection. Electronically Signed by Devon Vazquez DO 11/18/2019 10:03 A
== END ==
LOC: M RAD 08:53
PROVIDERS: ATTEND Internal Medicine Hematology & Oncology
DX: M54.2 Cervicalgia (principal)
CPT/HCPCS: 70491; Q9967

== ENCOUNTER 2020-01-18 21:10 | Observation (INO) | payer OTHER ==
[~2020-01-18] VITALS: Ht 167.6 cm; Wt 120.1 kg
[~2020-01-18 21:10] MED LIST changes: -ISOVUE-370 76% 100ML VIAL As Ordered ONE
[2020-01-18] MEDS ORDERED: LABE100T36 PO (21:25)
[2020-01-18] MEDS ORDERED: ALPR2TAB3 PO (21:25)
[2020-01-18] MEDS ORDERED: CITA20TA6 PO (21:25)
[2020-01-18] MEDS ORDERED: MELO15TA28 PO (21:25)
[2020-01-18] MEDS ORDERED: OXCA150T21 PO (21:25)
[2020-01-19] MEDS ORDERED: MORPHINE 4 MG/ML 1ML VIAL/SYRINGE (J2270) IV ONE (01:00)
[2020-01-19] MEDS ORDERED: LABETALOL 100 MG TAB PO ONE (01:00)
--- NOTE | 2020-01-19 01:00 | REPVR ---
PROCEDURE INFORMATION: Exam: CT Head Without Contrast Exam date and time: 01/19/2020 12:48 AM Age: 34 years old Clinical indication: Other: Facial pain; Patient HX: Trigeminal neuralgia HX; Additional info: CVA - nursing interventions must not delay CT TECHNIQUE: Imaging protocol: Computed tomography of the head without contrast. Radiation optimization: All CT scans at this facility use at least one of these dose optimization techniques: automated exposure control; mA and/or kV adjustment per patient size (includes targeted exams where dose is matched to clinical indication); or iterative reconstruction. COMPARISON: No relevant prior studies available. FINDINGS: Brain: Normal. No hemorrhage. Unremarkable white matter. No mass effect. Ventricles: Normal. No ventriculomegaly. Bones/joints: Unremarkable. No acute fracture. Sinuses: Visualized sinuses are unremarkable. No fluid levels. Mastoid air cells: Visualized mastoid air cells are well aerated. Soft tissues: Unremarkable. IMPRESSION: No acute intracranial abnormality. Electronically signed by: Natalia Lim On 01/19/2020 01:00:28 AM
[2020-01-19] MEDS ORDERED: ONDANSETRON 4MG/2ML VIAL As Ordered ONE (01:09)
[2020-01-19] MEDS ORDERED: ONDANSETRON 4MG/2ML VIAL IV ONE (01:15)
[2020-01-19 01:21] LABS: BASO % 0.3 % (0.0-1.0); EOS # 0.2 10^3/uL (0.0-0.5); EOS % 1.8 % (0.0-3.0); HEMATOCRIT 39.1 % (36.0-47.0); HEMOGLOBIN 12.4 g/dl (12.0-15.5); LYMPH # 2.7 10^3/uL (1.5-5.0); LYMPH % 24.5 % (24.0-44.0); MEAN CORPUSCULAR HEMOGLOBIN 26.7 pg (27.0-33.0); MEAN CORPUSCULAR HGB CONC 31.7 g/dl (32.0-36.5); MEAN CORPUSCULAR VOLUME 84.1 fl (80.0-96.0); MONO # 0.7 10^3/uL (0.0-0.8); MONO % 6.2 % (0.0-5.0); NEUTROPHILS # 7.4 10^3/uL (1.5-8.5); NEUTROPHILS % 66.8 % (36.0-66.0); PLATELET COUNT, AUTOMATED 376 10^3/uL (150-450); RED BLOOD COUNT 4.65 10^6/uL (4.00-5.40); WHITE BLOOD COUNT 11.1 10^3/uL (4.0-10.0)
[2020-01-19 01:34] LABS: INR 0.94; PROTHROMBIN TIME 12.8 SECONDS (11.8-14.0)
[2020-01-19 01:35] LABS: PARTIAL THROMBOPLASTIN TIME 29.4 SECONDS (25.0-38.4)
[2020-01-19 01:49] LABS: BLOOD UREA NITROGEN 17 MG/DL (7-18); CALCIUM LEVEL 8.4 MG/DL (8.5-10.1); CARBON DIOXIDE LEVEL 30 MEQ/L (21-32); CHLORIDE LEVEL 105 MEQ/L (98-107); CK-MB VALUE MASS < 1.0 NG/ML (<3.6); CPK CREATINE PHOSPHOKINASE 46 U/L (26-192); CREATININE FOR GFR 0.57 MG/DL (0.55-1.30); GLOMERULAR FILTRATION RATE > 60.0 (>60); GLUCOSE, FASTING 96 MG/DL (70-100); MB/CK RELATIVE INDEX 2.17 (< OR =4); POTASSIUM SERUM 4.3 MEQ/L (3.5-5.1); SODIUM LEVEL 136 MEQ/L (136-145); TROPONIN I < 0.02 NG/ML (< 0.10)
[2020-01-19] MEDS ORDERED: ASPIRIN 325 MG TAB PO ONE (02:15)
[2020-01-19] MEDS ORDERED: OXcarbazepine 150 MG TAB PO ONE ×2 (02:15→21:00)
[2020-01-19] MEDS ORDERED: PRENCHW PO (02:42)
[2020-01-19] MEDS ORDERED: VITA-172 PO (02:42)
[2020-01-19] MEDS ORDERED: ALPR0.5T3 PO (02:42)
[2020-01-19] MEDS ORDERED: FISH1000 PO (02:42)
[2020-01-19] MEDS ORDERED: PROAAER10 INH (02:42)
[2020-01-19] MEDS ORDERED: ONDANSETRON 4MG/2ML VIAL IV PRN (03:45)
--- NOTE | 2020-01-19 03:50 | HPEPDOC ---
General Date of Admission Jan 18, 2020 at 21:13 Date of Service: Jan 19, 2020 Chief Complaint The patient is a 34-year-old female admitted with a reason for visit of Trigeminal Nueralgia Of Right Side Of Face. Source: Patient Exam Limitations: No limitations Timing/Duration: Other (6PM on 01/18/2020) Severity: Mild, Moderate Associated Symptoms: Headaches, Nausea, Dizziness History of Present Illness Patient is a 34 yo female with history of trigeminal neuralgia and castleman disease presented to [facility] because of reported word finding difficulty, neck pain with stiffness, photophobia, electrical pain on right sided of face, squeezing feeling in right arm, and nausea. She also reported pressure in chest starting 7PM on 01/18/2020 which resolved at midnight after receiving pain medication and headache which resolved after receiving pain medication. She denies any extremity weakness, visual field loss, or dysphagia. Home Medications Scheduled Citalopram Hydrobromide (Citalopram HBr) 20 Mg Tablet, 20 MG PO DAILY, (Reported) Cyanocobalamin (Vitamin B-12) (Vitamin B-12) 500 Mcg Tablet, 500 MCG PO DAILY, (Reported) Labetalol HCl (Labetalol HCl) 100 Mg Tablet, 100 MG PO BID, (Reported) Meloxicam (Meloxicam) 15 Mg Tablet, 15 MG PO DAILY, (Reported) [place]-3 Fatty Acids/Fish Oil (Fish Oil 1,000 mg Capsule) 1 Each Capsule, 1,000 MG PO DAILY, (Reported) Oxcarbazepine (Oxcarbazepine) 150 Mg Tablet, 150 MG PO Q8H, (Reported) Pnv No.118/Iron Fumarate/FA ( 19 Chewable Tablet) 1 Each Tab.chew, 1 CHW PO DAILY, (Reported) Scheduled PRN Albuterol Sulfate (Proair Hfa) 8.5 Gm Hfa.aer.ad, 2 PUFF INH Q4H PRN for SHORTNESS OF BREATH, (Reported) Alprazolam (Alprazolam) 2 Mg Tablet, 0.5 MG PO BIDP PRN for anxiety, (Reported) Alprazolam (Alprazolam) 0.5 Mg Tablet, 0.5 MG PO BID PRN for ANXIETY, (Reported) Allergies Coded Allergies: No Known Drug Allergies (Verified Allergy, Unknown, 1/3/20) Attending Note I have independently interviewed and examined this patient at the bedside, and agree with the documented physical findings and management plan as written by my Resident physician. The patient's questions and concerns have been satisfactory addressed, and the patient was encouraged to contact the [place] office for any questions. Past Medical History Medical History Unspecified heart murmur asthma Castleman disease Trigeminal neuralgia abdominal hernia anxiety depression Surgical History Knee arthroscopy Large intestine mass removal Social History * Smoker: Denies Recent Travel/Sick Contacts: Denies: Recent sick contacts A-FIB/[facility] A-FIB History Current/History of A-Fib/PAF?: No Review of Systems Constitutional: Denies: Chills, Fever ENT: Reports: Head Aches, Other Symptoms (photophobia, neck pain, and neck stiffness. Right ear tinnitus) Pulmonary: Denies: Dyspnea Cardiovascular: Reports: Other Symptoms (chest pressure); Denies: Palpitations Gastrointestinal: Reports: Nausea; Denies: Vomiting, Abdominal Pain Neurological: Reports: Change in speech, Other Symptoms (right facial pain, right arm squeezing feeling, word finding difficulty. Denies extremity weakness) Physical Examination General Exam: Positive: Alert, Cooperative, Mild Distress Eye Exam: Positive: Conjunctiva & lids normal, Other Eye Symptoms (bilateral pupil equal and round); Negative: Ptosis ENT Exam: Positive: Atraumatic, Mucous membr. moist/pink Neck Exam: Positive: Supple, Other (no carotid bruit aus bilaterally) Chest Exam: Positive: Clear to auscultation, Normal air movement; Negative: Rales, Rhonchi, Wheezing Heart Exam: Positive: Rate Normal, Regular Rhythm, Normal S1, Normal S2, Murmurs Abdomen Exam: Positive: Normal bowel sounds, Soft; Negative: Tenderness Skin Exam: Positive: Nl turgor and temperature Neuro Exam: Positive: Strength at 5/5 X4 ext, Normal Tone, Cranial Nerves 3-12 NL, Other (mild word finding difficulty noted. Able to repeat "no, if, and, or, buts". Allodynia in right side face. Neg Kernig and Brudenski sign); Negative: Sensation Intact Psych Exam: Positive: Mental status NL, Anxiety (mild), Memory Intact, Oriented x 3 Vital Signs Vital Signs Date Time Temp Pulse Resp B/P (MAP) Pulse Ox O2 Delivery O2 Flow Rate FiO2 01/19/20 01:55 16 96 Room Air 01/19/20 01:26 64 137/92 01/18/20 21:12 97.8 Laboratory Data Labs 24H Laboratory Tests 2 01/19/20 01:00: Immature Granulocyte % (Auto) 0.4, Neutrophils (%) (Auto) 66.8H, Lymphocytes (%) (Auto) 24.5, Monocytes (%) (Auto) 6.2H, Eosinophils (%) (Auto) 1.8, Basophils (%) (Auto) 0.3, Neutrophils # (Auto) 7.4, Lymphocytes # (Auto) 2.7, Monocytes # (Auto) 0.7, Eosinophils # (Auto) 0.2, Basophils # (Auto) 0.0, Nucleated Red Blood Cells % (auto) 0.0, Prothrombin Time 12.8, Prothromb Time International Ratio 0.94, Activated Partial Thromboplast Time 29.4, Anion Gap 1L, Glomerular Filtration Rate > 60.0, Calcium Level 8.4L, Total Creatine Kinase 46, Creatine Kinase MB < 1.0, Creatine Kinase MB Relative Index 2.17, Troponin I < 0.02 CBC/BMP Laboratory Tests 01/19/20 01:00 Assessment/Plan 1. Trigeminal neuralgia. Right sided facial allodynia. Cont home med Oxycarbaz epine 150mg TID. Zofran PRN. Called Dr. Young regarding this patient and recommended MRI brain if concern for stroke and follow up outpatient for trigeminal neuralgia 2. R/o stroke. Word finding difficulty, also reported headache earlier. MRI and MRA head pending. Head CT unremarkable. Echo ordered with carotid US. Swallow eval, aspiration precaution, fall precaution, PT evaluation. Pt on tele. 324mg aspirin ordered upon admission with daily statin. Lipid panel ordered. Although patient reported neck stiffness and photophobia, she is able to move her neck, and there's no kernig/brudenski's sign, fever, chills, significant leukocytosis. Consider lumbar puncture with empiric antibiotics if patient leukocytosis increases or if fever/chills develop. 3. Depression. Cont home med Citalopram 4. Anxiety. Cont home med Citalopram and alprazolam PRN 5. Chest pressure, resolved. Precordial chest pressure lasting from 7pm to midnight on 01/18/2020, currently without any chest pain/pressure. Denies any palpitation. Pt on tele for r/o stroke. First cardiac marker panel neg, repeat cardiac panel. Echo already ordered as r/o stroke 6. DVT prophylaxis: lovenox, SCD, TEDS Plan / VTE VTE Prophylaxis Ordered?: Yes Plan Therapy: PT, Speech Diagnostics: Check Labs, Repeat Labs in AM, Ultrasound, CASTRO HEIDI DELANEY DO Jan 19, 2020 03:50 SURESH THOMAS MD Jan 19, 2020 04:20
[2020-01-19] MEDS ORDERED: ALPRAZolam 0.5 MG TAB PO PRN (04:00)
[2020-01-19] MEDS ORDERED: ALBUTEROL 90 MCG/ACT 8GM HFA INHALER INH PRN (04:00)
[2020-01-19] MEDS: ATORVASTATIN 20 MG TAB PO SCH ×2 (04:16→21:35)
[2020-01-19] MEDS: ENOXAPARIN 40MG/0.4ML SYRINGE (J1650 PER 10MG) SC SCH (04:24)
[2020-01-19] MEDS ORDERED: ACETAMINOPHEN 500 MG TAB PO PRN (05:00)
--- NOTE | 2020-01-19 05:11 | REPVR ---
PROCEDURE INFORMATION: Exam: US Duplex Bilateral Extracranial Arteries Exam date and time: 01/19/2020 4:47 AM Age: 34 years old Clinical indication: Pain; Numbness / parasthesia and speech disturbance; Right; Unspecified; Other: Facial; Additional info: R/O stroke TECHNIQUE: Imaging protocol: Real-time Duplex ultrasound scan of the bilateral carotid and vertebral arteries combining jenkins scale, color Doppler and spectral waveform analysis. Bilateral exam. COMPARISON: CT Head without contrast 01/19/2020 12:48 AM FINDINGS: Right common carotid artery: Unremarkable. No occlusion or stenosis. Waveforms are normal. Right internal carotid artery: Unremarkable. No occlusion or stenosis. Waveforms are normal. Right ICA/CCA ratio: Within normal limits. Right external carotid artery: No stenosis in the origin. Right vertebral artery: Unremarkable. Antegrade flow. Left common carotid artery: Mild atherosclerosis. No occlusion or stenosis. Waveforms are normal. Left internal carotid artery: Mild atherosclerosis. No occlusion or stenosis. Waveforms are normal. Left ICA/CCA ratio: Within normal limits. Left external carotid artery: No stenosis in the origin. Left vertebral artery: Unremarkable. Antegrade flow. IMPRESSION: No hemodynamically significant stenosis, or occlusion. Mild atherosclerosis of the left carotid bulb and left internal carotid artery. REFERENCES: SRU CRITERIA. The degree of internal carotid artery stenosis is based on criteria defined by the Society of Radiologists in Ultrasound (SRU). Normal is no stenosis. Mild is less than 50% stenosis. Moderate is 50-69% stenosis. Severe is greater than 69% stenosis to near occlusion. Near occlusion is a markedly narrowed lumen. Total occlusion is no detectable patent lumen. Electronically signed by: Natalia Lim On 01/19/2020 05:11:33 AM
[2020-01-19 07:40] LABS: HEMATOCRIT 38.3 % (36.0-47.0); HEMOGLOBIN 11.8 g/dl (12.0-15.5); MEAN CORPUSCULAR HEMOGLOBIN 25.8 pg (27.0-33.0); MEAN CORPUSCULAR HGB CONC 30.8 g/dl (32.0-36.5); MEAN CORPUSCULAR VOLUME 83.8 fl (80.0-96.0); PLATELET COUNT, AUTOMATED 344 10^3/uL (150-450); RED BLOOD COUNT 4.57 10^6/uL (4.00-5.40)
[2020-01-19 08:14] LABS: BLOOD UREA NITROGEN 12 MG/DL (7-18); CALCIUM LEVEL 8.4 MG/DL (8.5-10.1); CARBON DIOXIDE LEVEL 27 MEQ/L (21-32); CHLORIDE LEVEL 106 MEQ/L (98-107); CHOLESTEROL LEVEL 183 MG/DL (<200); CHOLESTEROL RISK RATIO 3.519 (<5); CK-MB VALUE MASS < 1.0 NG/ML (<3.6); CPK CREATINE PHOSPHOKINASE 38 U/L (26-192); CREATININE FOR GFR 0.47 MG/DL (0.55-1.30); GLOMERULAR FILTRATION RATE > 60.0 (>60); GLUCOSE, FASTING 88 MG/DL (70-100); HDL CHOLESTEROL 52 MG/DL (>40); LDL CHOLESTEROL 108 MG/DL (<100); MB/CK RELATIVE INDEX 2.63 (< OR =4); NON-HDL-C 131 MG/DL; POTASSIUM SERUM 4.1 MEQ/L (3.5-5.1); SODIUM LEVEL 140 MEQ/L (136-145); TRIGLYCERIDES LEVEL 116 MG/DL (<150); TROPONIN I < 0.02 NG/ML (< 0.10)
[2020-01-19] MEDS: MELOXICAM (MOBIC) 7.5 MG TAB PO SCH (09:42)
[2020-01-19] MEDS: CitaloPRAM (CeleXA) 20 MG TAB PO SCH (09:42)
[2020-01-19] MEDS: PRENATAL VITAMINS CHEWABLE TABLET PO SCH (09:43)
[2020-01-19] MEDS: OMEGA-3 1000MG CAPSULE PO SCH (09:43)
[2020-01-19] MEDS: CYANOCOBALAMIN 500 MCG TAB PO SCH (09:44)
[2020-01-19] MEDS: OXcarbazepine 150 MG TAB PO SCH ×2 (09:47→15:32)
[2020-01-19] MEDS: LABETALOL 100 MG TAB PO SCH ×2 (09:48→22:24)
--- NOTE | 2020-01-19 10:04 | REPVR ---
PROCEDURE INFORMATION: Exam: MR Angiogram Head Without Contrast, Arteries Exam date and time: 01/19/2020 8:12 AM Age: 34 years old Clinical indication: Patient HX: H/a facial pain; Additional info: CVA TECHNIQUE: Imaging protocol: MR angiogram head without contrast. Exam focused on the arteries. 3D rendering (Not supervised by radiologist): MIP and/or 3D reconstructed images were created by the technologist. COMPARISON: CT Head without contrast 01/19/2020 12:48 AM FINDINGS: ANTERIOR CIRCULATION: Right internal carotid artery: Intracranial segment is patent with no significant stenosis. No aneurysm. Right middle cerebral artery: No occlusion or significant stenosis. No aneurysm. Right anterior cerebral artery: No occlusion or significant stenosis. No aneurysm. Left internal carotid artery: Intracranial segment is patent with no significant stenosis. No aneurysm. Left middle cerebral artery: No occlusion or significant stenosis. No aneurysm. Left anterior cerebral artery: No occlusion or significant stenosis. No aneurysm. POSTERIOR CIRCULATION: Right vertebral artery: No occlusion or significant stenosis. No aneurysm. Left vertebral artery: No occlusion or significant stenosis. No aneurysm. Basilar artery: No occlusion or significant stenosis. No aneurysm. Right posterior cerebral artery: No occlusion or significant stenosis. No aneurysm. Left posterior cerebral artery: No occlusion or significant stenosis. No aneurysm. IMPRESSION: No stenosis or occlusion. Electronically signed by: Lizbeth Mejia On 01/19/2020 10:04:25 AM
--- NOTE | 2020-01-19 10:07 | REPVR ---
PROCEDURE INFORMATION: Exam: MR Head Without Contrast Exam date and time: 01/19/2020 8:12 AM Age: 34 years old Clinical indication: Patient HX: H/a and facial pain; Additional info: CVA TECHNIQUE: Imaging protocol: MR of the head without contrast. COMPARISON: CT Head without contrast 01/19/2020 12:48 AM FINDINGS: Brain: There is no extra-axial collection or intra-axial mass. Normal parenchymal signal is preserved. There is no diffusion restriction. Ventricles: Normal. No ventriculomegaly. Bones/joints: Unremarkable. Sinuses: Normal as visualized. No acute sinusitis. Mastoid air cells: Normal as visualized. No mastoid effusion. Orbits: Unremarkable. Soft tissues: Unremarkable. IMPRESSION: No acute findings. Electronically signed by: Lizbeth Mejia On 01/19/2020 10:07:42 AM
[2020-01-19 14:17] VITALS: BP 104/58
[2020-01-19] MEDS ORDERED: OXcarbazepine 300MG 5ML SUSP ORAL SYRINGE *DRAW UP EXACT DOSE PO SCH (21:00)
[2020-01-19] MEDS ORDERED: lamoTRIgine 25 MG TAB PO SCH (21:00)
[2020-01-19] MEDS ORDERED: OXcarbazepine 150 MG TAB PO SCH (21:00)
[2020-01-19 22:00] VITALS: BP 102/49
[2020-01-20 06:00] VITALS: BP 117/75
[2020-01-20 07:44] LABS: HEMATOCRIT 34.4 % (36.0-47.0); HEMOGLOBIN 11.3 g/dl (12.0-15.5); MEAN CORPUSCULAR HEMOGLOBIN 27.1 pg (27.0-33.0); MEAN CORPUSCULAR HGB CONC 32.8 g/dl (32.0-36.5); MEAN CORPUSCULAR VOLUME 82.5 fl (80.0-96.0); PLATELET COUNT, AUTOMATED 318 10^3/uL (150-450); RED BLOOD COUNT 4.17 10^6/uL (4.00-5.40); WHITE BLOOD COUNT 8.7 10^3/uL (4.0-10.0)
[2020-01-20 08:05] LABS: BLOOD UREA NITROGEN 11 MG/DL (7-18); CALCIUM LEVEL 8.3 MG/DL (8.5-10.1); CARBON DIOXIDE LEVEL 28 MEQ/L (21-32); CHLORIDE LEVEL 105 MEQ/L (98-107); GLOMERULAR FILTRATION RATE > 60.0 (>60); GLUCOSE, FASTING 92 MG/DL (70-100); SODIUM LEVEL 136 MEQ/L (136-145)
[2020-01-20] MEDS ORDERED: OXcarbazepine 300 MG TAB PO SCH (09:00)
[2020-01-20] MEDS: PRENATAL VITAMINS CHEWABLE TABLET PO SCH (09:01)
[2020-01-20] MEDS: CYANOCOBALAMIN 500 MCG TAB PO SCH (09:06)
[2020-01-20] MEDS: OMEGA-3 1000MG CAPSULE PO SCH (09:06)
[2020-01-20] MEDS: CitaloPRAM (CeleXA) 20 MG TAB PO SCH (09:06)
[2020-01-20] MEDS: MELOXICAM (MOBIC) 7.5 MG TAB PO SCH (09:06)
[2020-01-20 09:07] VITALS: BP 175/85
[2020-01-20] MEDS: LABETALOL 100 MG TAB PO SCH (09:07)
[2020-01-20] MEDS: ENOXAPARIN 40MG/0.4ML SYRINGE (J1650 PER 10MG) SC SCH (09:08)
[2020-01-20] MEDS ORDERED: LAMI25TA PO (10:51)
[2020-01-20] MEDS ORDERED: OXCA150T21 PO (10:52)
[2020-01-20] MEDS ORDERED: lamoTRIgine 25 MG TAB PO SCH (14:00)
--- NOTE | 2020-01-21 02:56 | DS.PDOC ---
Discharge Summary General Date of Admission Jan 19, 2020 at 02:14 Date of Discharge 01/20/20 Discharge Summary PROCEDURES PERFORMED DURING STAY: [None]. DISCHARGE DIAGNOSES: Trigeminal Neuralgia acute exacerbation Morbid obesity SECONDARY DIAGNOSIS: Unspecified heart murmur Asthma Castleman disease Trigeminal neuralgia abdominal hernia anxiety depression COMPLICATIONS/CHIEF COMPLAINT: Trigeminal Nueralgia Of Right Side Of Face. HOSPITAL COURSE: Patient is a 34 yo female with history of trigeminal neuralgia and castleman disease presented to [facility] because of reported word finding difficulty, neck pain with stiffness, muscle spasm, inability to speak or chew, photophobia, electrical pain on right sided of face, squeezing feeling in right arm, and nausea. She also reported pressure in chest starting 7PM on 01/18/2020 which resolved at midnight after receiving pain medication and headache which r esolved after receiving pain medication. She was admitted for acute exacerbation of trigeminal neuralgia and to work up for stroke. Her MRI and MRA brain as negative so stroke was ruled out. Carotid US did not show any obstruction. Trigeminal neuralgia. she responded well to a combination of oxcarbamazepine and lamotrigine her oxcarbamazepine dosage was increased by her neurologist from 150 mg tid to 300 mg tid. I also started her on lamotrigine. Depression. Cont home med Citalopram Anxiety. Cont home med Citalopram and alprazolam PRN Chest pressure, resolved. Precordial chest pressure lasting from 7pm to midnight on 01/18/2020 , ACS ruled out. Probably anxiety vs musculoskeletal. DISCHARGE MEDICATIONS: Please see below. ALLERGIES: Please see below. PHYSICAL EXAMINATION ON DISCHARGE: VITAL SIGNS: Please see below. General Exam: Positive: Alert, Cooperative, Mild Distress Eye Exam: Positive: Conjunctiva & lids normal, Other Eye Symptoms (bilateral pupil equal and round); Negative: Ptosis ENT Exam: Positive: Atraumatic, Mucous membr. moist/pink Neck Exam: Positive: Supple, Other (no carotid bruit aus bilaterally) Chest Exam: Positive: Clear to auscultation, Normal air movement; Negative: Rales, Rhonchi, Wheezing Heart Exam: Positive: Rate Normal, Regular Rhythm, Normal S1, Normal S2, Murmurs Abdomen Exam: Positive: Normal bowel sounds, Soft; Negative: Tenderness Skin Exam: Positive: Nl turgor and temperature Neuro Exam: Positive: Strength at 5/5 X4 ext, Normal Tone, Cranial Nerves 3-12 NL, Other (mild word finding difficulty noted. Able to repeat "no, if, and, or, buts". Allodynia in right side face. Neg Kernig and Brudenski sign); Negative: Sensation Intact Psych Exam: Positive: Mental status NL, Anxiety (mild), Memory Intact, Oriented x 3 LABORATORY DATA: Please see below. ACTIVITY: [As tolerated]. DIET: As tolerated DISPOSITION: 01 Home, Self-Care. DISCHARGE INSTRUCTIONS: Follow up with PMD in 1 week Follow up with own neurologist DISCHARGE CONDITION: [Stable]. TIME SPENT ON DISCHARGE: 35 minutes. Vital Signs/I&Os Vital Signs Date Time Temp Pulse Resp B/P (MAP) Pulse Ox O2 Delivery O2 Flow Rate FiO2 01/20/20 09:07 87 175/85 01/20/20 06:00 98.5 18 98 Room Air l I&O- Last 24 Hours up to 6 AM 01/21/20 07:00 Intake Total 240 ml Output Total 0 ml Balance 240 ml Laboratory Data Labs 24H Laboratory Tests 2 01/20/20 07:03: Nucleated Red Blood Cells % (auto) 0.0, Anion Gap 3L, Glomerular Filtration Rate > 60.0, Calcium Level 8.3L CBC/BMP Laboratory Tests 01/20/20 07:03 Discharge Medications Scheduled Citalopram Hydrobromide (Citalopram HBr) 20 Mg Tablet, 20 MG PO DAILY, (Reported) Cyanocobalamin (Vitamin B-12) (Vitamin B-12) 500 Mcg Tablet, 500 MCG PO DAILY, (Reported) Labetalol HCl (Labetalol HCl) 100 Mg Tablet, 100 MG PO BID, (Reported) Lamotrigine (Lamictal) 25 Mg Tablet, 25 MG PO QHS Meloxicam (Meloxicam) 15 Mg Tablet, 15 MG PO DAILY, (Reported) [place]-3 Fatty Acids/Fish Oil (Fish Oil 1,000 mg Capsule) 1 Each Capsule, 1,000 MG PO DAILY, (Reported) Oxcarbazepine (Oxcarbazepine) 150 Mg Tablet, 300 MG PO Q8H Pnv No.118/Iron Fumarate/FA ( 19 Chewable Tablet) 1 Each Tab.chew, 1 CHW PO DAILY, (Reported) Scheduled PRN Albuterol Sulfate (Proair Hfa) 8.5 Gm Hfa.aer.ad, 2 PUFF INH Q4H PRN for SHORTNESS OF BREATH, (Reported) Alprazolam (Alprazolam) 2 Mg Tablet, 0.5 MG PO BIDP PRN for anxiety, (Reported) Alprazolam (Alprazolam) 0.5 Mg Tablet, 0.5 MG PO BID PRN for ANXIETY, (Reported) Allergies Coded Allergies: No Known Drug Allergies (Verified Allergy, Unknown, 05/29/19) XIMENA VELAZCO MD Jan 21, 2020 02:56
--- NOTE | 2020-02-09 11:57 | ECGEPIP ---
[facility] - ED Test Date: 2020-01-19 Pat Name: BLAIR BRITO Department: Room: [place] [address] Gender: Female Electronic Scale Tester: trey : 1985 Requested By: CONNIE Avelar Order Number: [id number] Reading MD: Luis Manuel Arellano Measurements Intervals [place] Rate: 64 P: 16 PA: 129 QRS: 15 QRSD: 103 T: 5 QT: 425 QTc: 441 Interpretive Statements SINUS RHYTHM NSTTW CHANGES SEE SCANNED DOWNTIME REPORT
--- NOTE | 2020-02-18 10:54 | REP ---
CHEST X-RAY CLINICAL: Cerebrovascular accident. FINDINGS: Mediastinal and cardiac silhouette normal. Lung estrella are clear. No focal consolidation, effusion, or pneumothorax. Skeletal structures intact. IMPRESSION: Normal portable chest x-ray. MTDD
--- NOTE | 2020-03-04 13:34 | ECHO ---
DATE OF PROCEDURE: 01/20/2020 Age: 34 Gender: Female Height: 168 cm Weight: 116 kg REFERRING PHYSICIAN: Dr. Lori Brown INDICATION: Transient cerebral ischemia unspecified. MEASUREMENTS: 2D Measurements: Aortic root 3.2 cm Left atrium 3.8 cm Interventricular septum 1.12 cm Posterior wall 1.14 cm Left ventricle diastole 4.7 cm Inferior vena cava 2.2 cm Doppler Measurements: No aortic stenosis No aortic regurgitation Aortic valve velocity 190 cm/s LVOT velocity 144 cm/s LVOT VTI 30.2 cm No mitral regurgitation No mitral stenosis Mitral E velocity 125 cm/s Mitral A velocity 73.5 cm/s Mitral deceleration time 208 msec Very mild tricuspid regurgitation Estimated right ventricular systolic pressure 34-39 mmHg No pulmonic regurgitation Pulmonary acceleration time 169 msec MITRAL ANNULAR TISSUE DOPPLER E prime septal 9.2 cm/s DESCRIPTION: Rhythm was sinus. Image quality was adequate. No pericardial effusion. This was a 2D, M-mode, color flow Doppler, and pulsed wave Doppler examination including mitral annular tissue Doppler. CONCLUSIONS: * Normal left ventricle internal dimensions and wall thickness. Normal regional LV wall motion and wall thickening. Normal LV systolic function. LVEF 65% by visual estimate. Normal LV diastolic function. * Mild left atrial dilatation. * Suggestive of mild elevation of estimated right ventricle systolic pressure. * Suspicious for a small patent foramen ovale or small secundum atrial septal defect with a small amount of left atrium to right atrium shunting. ADDITIONAL COMMENTS/RECOMMENDATION: Consider transesophageal echocardiogram with saline bubble study for further evaluation of suspected atrial septal defect or PFO. MTDD
== END 2020-01-20 13:43 | disposition home or self-care (01) ==
LOC: M ED 21:10 → M ED INP 21:13 → UNDOADMOB 01-19 02:13 → M ED INP 01-19 02:13 → M MSPAV 01-19 14:17
PROVIDERS: ADMIT General Practice; ATTEND Internal Medicine Nephrology
DX: G50.0 Trigeminal neuralgia (principal); E66.01 Morbid (severe) obesity due to excess calories; R01.1 Cardiac murmur, unspecified; J45.909 Unspecified asthma, uncomplicated; D47.Z2 Castleman disease; F41.9 Anxiety disorder, unspecified; F32.9 Major depressive disorder, single episode, unspecified; K46.9 Unspecified abdominal hernia without obstruction or gangrene; Z79.899 Other long term (current) drug therapy
CPT/HCPCS: 36415; 70450; 70544; 70551; 71045; 80048; 80061; 82550; 82553; 85025; 85027; 85610; 85730; 92526; 92610; 93005; 93041; 93306; 93880; 94760; 96372; 96374; 96375; 97116; 97161; 97530; 99285; J1650; J2270; J2405

== ENCOUNTER 2020-03-12 15:22 | Emergency (ER) | payer OTHER ==
[~2020-03-12] VITALS: Ht 167.6 cm; Wt 120.8 kg
[~2020-03-12 15:22] MED LIST changes: +ALPR0.5T3 PO; +ALPR2TAB3 PO; +CITA20TA6 PO; +FISH1000 PO; +LABE100T36 PO; +LAMI25TA PO; +MELO15TA28 PO; +OXCA150T21 PO; +PRENCHW PO; +VITA-172 PO
--- NOTE | 2020-03-12 16:36 | REPVR ---
PROCEDURE INFORMATION: Exam: XR Right Elbow Exam date and time: 03/12/2020 4:21 PM Age: 34 years old Clinical indication: Pain; Elbow; Right; Additional info: Fall with pain TECHNIQUE: Imaging protocol: XR Right elbow. Views: 3 or more views. COMPARISON: No relevant prior studies available. FINDINGS: Bones/joints: No acute fracture or dislocation. Joint spaces are unremarkable. Soft tissues: Unremarkable. IMPRESSION: No acute findings. Electronically signed by: Bonilla Benton On 03/12/2020 16:36:27 PM
--- NOTE | 2020-03-12 16:40 | REPVR ---
PROCEDURE INFORMATION: Exam: CT Head Without Contrast Exam date and time: 03/12/2020 4:26 PM Age: 34 years old Clinical indication: Injury or trauma; Fall; Blunt trauma (contusions or hematomas); Consciousness not specified; Additional info: Fall, head injury, loc TECHNIQUE: Imaging protocol: Computed tomography of the head without contrast. Radiation optimization: All CT scans at this facility use at least one of these dose optimization techniques: automated exposure control; mA and/or kV adjustment per patient size (includes targeted exams where dose is matched to clinical indication); or iterative reconstruction. COMPARISON: CT Head without contrast 01/19/2020 12:48 AM FINDINGS: Brain: There is no acute intracranial hemorrhage. No extra-axial fluid collection. No evidence of acute infarct. Chaney white differentiation is intact. There is no evidence of mass. There is no mass effect or midline shift. Cerebral ventricles: No ventriculomegaly. Bones/joints: No acute fracture. Paranasal sinuses: There is mucosal thickening in left maxillary greater than right maxillary and ethmoid sinuses, left frontal, and left sphenoid sinuses. Mastoid air cells: No significant mastoid effusion. Soft tissues: Unremarkable as visualized. IMPRESSION: 1. No evidence of acute intracranial abnormality. 2. Mucosal sinus disease. Electronically signed by: Teri Maier On 03/12/2020 16:40:25 PM
--- NOTE | 2020-03-12 16:52 | REPVR ---
PROCEDURE INFORMATION: Exam: CT Cervical Spine Without Contrast Exam date and time: 03/12/2020 4:26 PM Age: 34 years old Clinical indication: Injury or trauma; Fall; Blunt trauma; Additional info: Fall, head injury, loc TECHNIQUE: Imaging protocol: Computed tomography images of the cervical spine without contrast. Radiation optimization: All CT scans at this facility use at least one of these dose optimization techniques: automated exposure control; mA and/or kV adjustment per patient size (includes targeted exams where dose is matched to clinical indication); or iterative reconstruction. COMPARISON: CT Neck with contrast 11/18/2019 9:22 AM FINDINGS: Vertebrae: Loss of cervical lordosis may be positional or associated with muscular spasm. Vertebral body heights are maintained. There is no fracture or dislocation. Facet joints appear well aligned. Discs/Spinal canal/Neural foramina: No evidence of spinal canal stenosis. No significant neural foraminal narrowing. Prevertebral Space: Prevertebral soft tissues appear normal. Soft tissues: Unremarkable. Dental: There is peribronchial lucency and dental caries adjacent to partially visualized most posterior indwelling left mandibular molar tooth. Lungs: Lung apices are unremarkable for acute finding. IMPRESSION: 1. Loss of cervical lordosis. No evidence of fracture or dislocation. 2. No spinal stenosis or neural foraminal narrowing. Electronically signed by: Teri Maier On 03/12/2020 16:52:13 PM
[2020-03-12] MEDS ORDERED: ONDA4TAB6 PO ×2 (16:56→17:02)
[2020-03-12 17:01] VITALS: BP 141/87
== END 2020-03-12 17:07 | disposition home or self-care (01) ==
LOC: M ED 15:22
DX: S09.90XA Unspecified injury of head, initial encounter (principal); W07.XXXA Fall from chair, initial encounter; Y92.098 Other place in other non-institutional residence as the place of occurrence of the external cause; R11.2 Nausea with vomiting, unspecified; M25.521 Pain in right elbow; F43.10 Post-traumatic stress disorder, unspecified; Z79.899 Other long term (current) drug therapy

== ENCOUNTER 2020-05-10 19:23 | Emergency (ER) | payer OTHER ==
[~2020-05-10] VITALS: Ht 167.6 cm; Wt 126.4 kg
[2020-05-10] MEDS ORDERED: MORPHINE 4 MG/ML 1ML VIAL/SYRINGE (J2270) IV ONE (20:15)
[2020-05-10] MEDS ORDERED: ONDANSETRON 4MG/2ML VIAL As Ordered ONE (20:23)
[2020-05-10 20:30] LABS: BASO % 0.2 % (0.0-1.0); EOS # 0.2 10^3/uL (0.0-0.5); EOS % 1.9 % (0.0-3.0); HEMATOCRIT 40.4 % (36.0-47.0); HEMOGLOBIN 13.1 g/dl (12.0-15.5); LYMPH # 2.1 10^3/uL (1.5-5.0); LYMPH % 23.1 % (24.0-44.0); MEAN CORPUSCULAR HEMOGLOBIN 26.7 pg (27.0-33.0); MEAN CORPUSCULAR HGB CONC 32.4 g/dl (32.0-36.5); MEAN CORPUSCULAR VOLUME 82.4 fl (80.0-96.0); MONO # 0.9 10^3/uL (0.0-0.8); MONO % 9.5 % (0.0-5.0); PLATELET COUNT, AUTOMATED 341 10^3/uL (150-450); URINE PREG TEST NEGATIVE (NEGATIVE); WHITE BLOOD COUNT 9.2 10^3/uL (4.0-10.0)
[2020-05-10] MEDS ORDERED: ONDANSETRON 4MG/2ML VIAL IV ONE (20:45)
[2020-05-10 20:52] LABS: ALBUMIN 3.1 GM/DL (3.2-5.2); ALT/SGPT 29 U/L (12-78); BILIRUBIN,DIRECT < 0.1 MG/DL (0.0-0.2); BILIRUBIN,TOTAL 0.2 MG/DL (0.2-1.0); BLOOD UREA NITROGEN 15 MG/DL (7-18); CALCIUM LEVEL 8.5 MG/DL (8.5-10.1); CARBON DIOXIDE LEVEL 28 MEQ/L (21-32); CHLORIDE LEVEL 103 MEQ/L (98-107); CREATININE FOR GFR 0.73 MG/DL (0.55-1.30); GLOMERULAR FILTRATION RATE > 60.0 (>60); GLUCOSE, FASTING 100 MG/DL (70-100); LIPASE 76 U/L (73-393); POTASSIUM SERUM 4.3 MEQ/L (3.5-5.1); SODIUM LEVEL 137 MEQ/L (136-145); TOTAL PROTEIN 6.9 GM/DL (6.4-8.2)
--- NOTE | 2020-05-10 21:25 | REPVR ---
PROCEDURE INFORMATION: Exam: CT Lumbar Spine Without Contrast Exam date and time: 05/10/2020 8:46 PM Age: 34 years old Clinical indication: Low back pain; Additional info: Trauma TECHNIQUE: Imaging protocol: Computed tomography images of the lumbar spine without contrast. Radiation optimization: All CT scans at this facility use at least one of these dose optimization techniques: automated exposure control; mA and/or kV adjustment per patient size (includes targeted exams where dose is matched to clinical indication); or iterative reconstruction. COMPARISON: No relevant prior studies available. FINDINGS: Vertebrae: No acute fracture. Normal alignment. Facet joints are unremarkable. Discs/Spinal canal/Neural foramina: Intervertebral disc spaces are unremarkable. No spinal stenosis. Soft tissues: Unremarkable. IMPRESSION: No acute fracture or malalignment. Electronically signed by: Edward Alonso On 05/10/2020 21:25:33 PM
--- NOTE | 2020-05-10 21:39 | REPVR ---
PROCEDURE INFORMATION: Exam: CT Thoracic Spine Without Contrast Exam date and time: 05/10/2020 8:46 PM Age: 34 years old Clinical indication: Pain in thoracic spine; Additional info: Trauma TECHNIQUE: Imaging protocol: Computed tomography images of the thoracic spine without contrast. Radiation optimization: All CT scans at this facility use at least one of these dose optimization techniques: automated exposure control; mA and/or kV adjustment per patient size (includes targeted exams where dose is matched to clinical indication); or iterative reconstruction. COMPARISON: No relevant prior studies available. FINDINGS: Vertebrae: No acute fracture. Normal alignment. Facet joints are unremarkable. Discs/Spinal canal/Neural foramina: Intervertebral disc spaces are unremarkable. No spinal stenosis. Soft tissues: Unremarkable. IMPRESSION: No acute fracture or malalignment. Electronically signed by: Edward Alonso On 05/10/2020 21:39:38 PM
--- NOTE | 2020-05-10 21:49 | REPVR ---
PROCEDURE INFORMATION: Exam: CT Head without Contrast Exam date and time: 05/10/20 (8:51pm) Age: 34 years old Clinical indication: Pain. Headache. Trauma. TECHNIQUE: Imaging protocol: Computed tomography of the head without contrast. Radiation optimization: All CT scans at this facility use at least one of these dose optimization techniques: automated exposure control; mA and/or kV adjustment per patient size (includes targeted exams where dose is matched to clinical indication); or iterative reconstruction. COMPARISON: CT HEAD of 03/12/20 FINDINGS: Brain: Unremarkable. No acute hemorrhage. Unremarkable white matter. No mass effect. Cerebral ventricles: No ventriculomegaly. Bones/joints: Unremarkable. No acute fracture. Paranasal sinuses: Visualized sinuses are unremarkable. No air-fluid levels. Mastoid air cells: Visualized mastoid air cells are well aerated. Soft tissues: Unremarkable. IMPRESSION: No acute intracranial pathology is appreciated. Electronically signed by: Cheryl Espinoza On 05/10/2020 21:49:37 PM
--- NOTE | 2020-05-10 21:59 | REPVR ---
PROCEDURE INFORMATION: Exam: CT Cervical Spine without Contrast Exam date and time: 05/10/20 (8:53pm) Age: 34 years old Clinical indication: Neck pain. Trauma. TECHNIQUE: Imaging protocol: Computed tomography images of the cervical spine without contrast. Radiation optimization: All CT scans at this facility use at least one of these dose optimization techniques: automated exposure control; mA and/or kV adjustment per patient size (includes targeted exams where dose is matched to clinical indication); or iterative reconstruction. COMPARISON: CT CERVICAL SPINE of 03/12/20 FINDINGS: Vertebrae: No acute fracture. Satisfactory alignment. Discs/Spinal canal: No significant spinal canal stenosis. Soft tissues: Unremarkable. Lungs: Lung apices are normal. IMPRESSION: No acute findings. Electronically signed by: Cheryl Espinoza On 05/10/2020 21:58:53 PM
[2020-05-10 23:15] VITALS: BP 136/77
== END 2020-05-10 23:45 | disposition home or self-care (01) ==
LOC: M ED 19:23
DX: M54.5 Low back pain (principal); W01.0XXA Fall on same level from slipping, tripping and stumbling without subsequent striking against object, initial encounter; Y92.9 Unspecified place or not applicable; Y93.9 Activity, unspecified; Y99.9 Unspecified external cause status; J45.909 Unspecified asthma, uncomplicated; R01.1 Cardiac murmur, unspecified; F33.9 Major depressive disorder, recurrent, unspecified; F41.9 Anxiety disorder, unspecified; Z79.51 Long term (current) use of inhaled steroids; Z79.899 Other long term (current) drug therapy
CPT/HCPCS: 70450; 72125; 72128; 72131; 80048; 80076; 81001; 83690; 84703; 85025; 96374; 96375; 99284; J2270; J2405

== ENCOUNTER → 2020-05-25 | Outpatient (CLI) | payer OTHER ==
[~2020-05-25] MED LIST changes: +ASPI81TA26 PO; +FAMO20TA PO; +LAMI25CH PO; +OXCA600T8 PO; +PRED5TA PO
[2020-05-25 16:32] LABS: BASO % 0.3 % (0.0-1.0); EOS # 0.2 10^3/uL (0.0-0.5); EOS % 1.6 % (0.0-3.0); HEMATOCRIT 41.1 % (36.0-47.0); HEMOGLOBIN 12.5 g/dl (12.0-15.5); LYMPH # 2.4 10^3/uL (1.5-5.0); LYMPH % 23.7 % (24.0-44.0); MEAN CORPUSCULAR HEMOGLOBIN 25.9 pg (27.0-33.0); MEAN CORPUSCULAR HGB CONC 30.4 g/dl (32.0-36.5); MEAN CORPUSCULAR VOLUME 85.1 fl (80.0-96.0); MONO # 0.7 10^3/uL (0.0-0.8); MONO % 6.7 % (0.0-5.0); NEUTROPHILS # 6.9 10^3/uL (1.5-8.5); NEUTROPHILS % 67.1 % (36.0-66.0); PLATELET COUNT, AUTOMATED 411 10^3/uL (150-450); RED BLOOD COUNT 4.83 10^6/uL (4.00-5.40); WHITE BLOOD COUNT 10.3 10^3/uL (4.0-10.0)
[2020-05-25 16:48] LABS: BLOOD UREA NITROGEN 12 MG/DL (7-18); CARBON DIOXIDE LEVEL 28 MEQ/L (21-32); CHLORIDE LEVEL 106 MEQ/L (98-107); CREATININE FOR GFR 0.49 MG/DL (0.55-1.30); GLOMERULAR FILTRATION RATE > 60.0 (>60); GLUCOSE, FASTING 116 MG/DL (70-100); SODIUM LEVEL 138 MEQ/L (136-145)
[2020-05-25 16:49] LABS: ALBUMIN 3.1 GM/DL (3.2-5.2); ALT/SGPT 29 U/L (12-78); BILIRUBIN,TOTAL 0.2 MG/DL (0.2-1.0); CALCIUM LEVEL 8.3 MG/DL (8.5-10.1); LDH LACTATE DEHYDROGENASE 183 U/L (84-246); TOTAL PROTEIN 6.9 GM/DL (6.4-8.2)
== END ==
LOC: M LAB 15:02
PROVIDERS: ATTEND Internal Medicine Hematology & Oncology
DX: D47.Z2 Castleman disease (principal)

== ENCOUNTER 2020-06-01 18:24 | Emergency (ER) | payer OTHER ==
[~2020-06-01] VITALS: Ht 167.6 cm; Wt 128.2 kg
[2020-06-01] MEDS ORDERED: methylPREDNISolone 125MG 2ML VIAL IV ONE (20:45)
[2020-06-01] MEDS ORDERED: MORPHINE 4 MG/ML 1ML VIAL/SYRINGE (J2270) IV ONE ×2 (20:45→23:00)
[2020-06-01] MEDS ORDERED: NS 1,000 ML IV ONE (20:45)
--- NOTE | 2020-06-01 21:04 | REPVR ---
PROCEDURE INFORMATION: Exam: CT Head Without Contrast Exam date and time: 06/01/2020 8:40 PM Age: 34 years old Clinical indication: Weakness, facial; Additional info: CVA - nursing interventions must not delay CT TECHNIQUE: Imaging protocol: Computed tomography of the head without contrast. Radiation optimization: All CT scans at this facility use at least one of these dose optimization techniques: automated exposure control; mA and/or kV adjustment per patient size (includes targeted exams where dose is matched to clinical indication); or iterative reconstruction. COMPARISON: CT Head without contrast 05/10/2020 8:48 PM FINDINGS: Brain: Normal. No hemorrhage. Unremarkable white matter. No mass effect. Cerebral ventricles: No ventriculomegaly. Bones/joints: Unremarkable. No acute fracture. Paranasal sinuses: Visualized sinuses are unremarkable. No fluid levels. Mastoid air cells: Visualized mastoid air cells are well aerated. Soft tissues: Unremarkable. IMPRESSION: No acute intracranial abnormality. Electronically signed by: Peter Frazier On 06/01/2020 21:04:37 PM
[2020-06-01 22:45] LABS: BASO % 0.4 % (0.0-1.0); EOS # 0.2 10^3/uL (0.0-0.5); EOS % 1.5 % (0.0-3.0); HEMATOCRIT 41.1 % (36.0-47.0); HEMOGLOBIN 12.4 g/dl (12.0-15.5); LYMPH # 2.5 10^3/uL (1.5-5.0); LYMPH % 25.6 % (24.0-44.0); MEAN CORPUSCULAR HEMOGLOBIN 25.7 pg (27.0-33.0); MEAN CORPUSCULAR HGB CONC 30.2 g/dl (32.0-36.5); MEAN CORPUSCULAR VOLUME 85.3 fl (80.0-96.0); MONO # 0.6 10^3/uL (0.0-0.8); MONO % 6.4 % (0.0-5.0); NEUTROPHILS # 6.5 10^3/uL (1.5-8.5); NEUTROPHILS % 65.6 % (36.0-66.0); PLATELET COUNT, AUTOMATED 353 10^3/uL (150-450); RED BLOOD COUNT 4.82 10^6/uL (4.00-5.40); WHITE BLOOD COUNT 9.9 10^3/uL (4.0-10.0)
[2020-06-01 22:57] LABS: INR 1.06
[2020-06-01 23:07] LABS: HCG, SERUM QUALITATIVE NEGATIVE (NEGATIVE)
[2020-06-01 23:11] LABS: BLOOD UREA NITROGEN 9 MG/DL (7-18); CALCIUM LEVEL 7.9 MG/DL (8.5-10.1); CARBON DIOXIDE LEVEL 27 MEQ/L (21-32); CHLORIDE LEVEL 104 MEQ/L (98-107); CK-MB VALUE MASS < 1.0 NG/ML (<3.6); CPK CREATINE PHOSPHOKINASE 40 U/L (26-192); GLOMERULAR FILTRATION RATE > 60.0 (>60); GLUCOSE, FASTING 96 MG/DL (70-100); POTASSIUM SERUM 4.2 MEQ/L (3.5-5.1); SODIUM LEVEL 137 MEQ/L (136-145); TROPONIN I < 0.02 NG/ML (< 0.10)
[2020-06-02] MEDS ORDERED: PERC5TAB12 PO (01:03)
[2020-06-02 01:29] VITALS: BP 159/89
--- NOTE | 2020-06-02 05:32 | ECGEPIP ---
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
== END 2020-06-02 01:33 | disposition home or self-care (01) ==
LOC: M ED 18:24
DX: G50.1 Atypical facial pain (principal); M79.601 Pain in right arm; M79.604 Pain in right leg; M54.2 Cervicalgia; I10 Essential (primary) hypertension; G50.0 Trigeminal neuralgia; G43.909 Migraine, unspecified, not intractable, without status migrainosus; J45.909 Unspecified asthma, uncomplicated; Z87.891 Personal history of nicotine dependence; Z79.899 Other long term (current) drug therapy; Z79.52 Long term (current) use of systemic steroids; Z79.82 Long term (current) use of aspirin
CPT/HCPCS: 70450; 80048; 82550; 82553; 84703; 85025; 85610; 85730; 93005; 96361; 96374; 96375; 96376; 99284; J2270; J2930

== ENCOUNTER → 2020-06-14 | Outpatient (CLI) | payer OTHER ==
[~2020-06-14] MED LIST changes: +PERC5TAB12 PO
--- NOTE | 2020-06-14 10:45 | REP ---
INDICATION: PAIN. COMPARISON: Comparison is made with CT lumbar spine findings May 10, 2020.. TECHNIQUE: Five views. FINDINGS: Lumbar vertebral body heights are preserved. Alignment is normal. There is mild disc space narrowing at L4-5. Disc spaces are otherwise preserved. Pedicles and posterior elements are intact. There is no evidence of spondylolysis or spondylolisthesis. An IUD is seen projecting just to the right of midline in the pelvis. Psoas margins are intact. Sacrum and SI joints are unremarkable. IMPRESSION: Minimal disc space narrowing at L4-5. Otherwise negative lumbar spine study. <Electronically signed by Carlos A Reagan > 06/14/20 [id number]
--- NOTE | 2020-06-14 10:45 | REP ---
INDICATION: PAIN COMPARISON: None. TECHNIQUE: AP and frog-lateral views of the right hip FINDINGS: Examination is essentially age-appropriate. Very minimally increased sclerosis along the acetabular roof is noted. Joint space appears to be within normal limits. No evidence for acute or healed injury. No periarticular calcifications or loose bodies. IMPRESSION: Mild generalized age-related changes. <Electronically signed by Rufus Marinelli > 06/14/20 [id number]
[2020-06-14 16:01] LABS: BASO % 0.2 % (0.0-1.0); EOS # 0.2 10^3/uL (0.0-0.5); EOS % 1.6 % (0.0-3.0); HEMATOCRIT 41.5 % (36.0-47.0); LYMPH # 2.1 10^3/uL (1.5-5.0); LYMPH % 19.4 % (24.0-44.0); MEAN CORPUSCULAR HEMOGLOBIN 26.8 pg (27.0-33.0); MEAN CORPUSCULAR HGB CONC 31.3 g/dl (32.0-36.5); MEAN CORPUSCULAR VOLUME 85.6 fl (80.0-96.0); MONO # 0.5 10^3/uL (0.0-0.8); MONO % 4.8 % (0.0-5.0); NEUTROPHILS # 7.8 10^3/uL (1.5-8.5); NEUTROPHILS % 73.6 % (36.0-66.0); PLATELET COUNT, AUTOMATED 373 10^3/uL (150-450); RED BLOOD COUNT 4.85 10^6/uL (4.00-5.40); WHITE BLOOD COUNT 10.6 10^3/uL (4.0-10.0)
[2020-06-14 16:42] LABS: ALBUMIN 3.3 GM/DL (3.2-5.2); ALT/SGPT 44 U/L (12-78); BILIRUBIN,TOTAL 0.4 MG/DL (0.2-1.0); BLOOD UREA NITROGEN 14 MG/DL (7-18); CALCIUM LEVEL 8.7 MG/DL (8.5-10.1); CARBON DIOXIDE LEVEL 25 MEQ/L (21-32); CHLORIDE LEVEL 105 MEQ/L (98-107); CHOLESTEROL LEVEL 210 MG/DL (<200); CHOLESTEROL RISK RATIO 4.285 (<5); CREATININE FOR GFR 0.51 MG/DL (0.55-1.30); GLOMERULAR FILTRATION RATE > 60.0 (>60); GLUCOSE, FASTING 94 MG/DL (70-100); HDL CHOLESTEROL 49 MG/DL (>40); LDL CHOLESTEROL 136 MG/DL (<100); NON-HDL-C 161 MG/DL; POTASSIUM SERUM 4.1 MEQ/L (3.5-5.1); SODIUM LEVEL 137 MEQ/L (136-145); TOTAL PROTEIN 6.9 GM/DL (6.4-8.2); TRIGLYCERIDES LEVEL 124 MG/DL (<150)
[2020-06-14 17:49] LABS: HEMOGLOBIN A1c 5.7 %
== END ==
LOC: M WUC 10:10
PROVIDERS: ATTEND Physician Assistant
DX: M51.36 Other intervertebral disc degeneration, lumbar region (principal); J45.20 Mild intermittent asthma, uncomplicated; I10 Essential (primary) hypertension; M25.551 Pain in right hip

== ENCOUNTER → 2020-08-09 | Outpatient (REF) | payer OTHER ==
[~2020-08-09] MED LIST changes: -LABE100T36 PO; +LABE100T5 PO
== END ==
LOC: M LAB REF 15:32
PROVIDERS: ATTEND Otolaryngology
DX: H60.311 Diffuse otitis externa, right ear (principal)

== ENCOUNTER 2020-09-10 23:24 | Emergency (ER) | payer OTHER ==
[~2020-09-10] VITALS: Ht 167.6 cm; Wt 130.0 kg
--- NOTE | 2020-09-11 00:10 | REPVR ---
PROCEDURE INFORMATION: Exam: XR Chest Exam date and time: 09/10/2020 11:49 PM Age: 34 years old Clinical indication: Chest pain TECHNIQUE: Imaging protocol: XR of the chest. Views: 1 view. COMPARISON: CR PORTABLE CHEST X-RAY 01/19/2020 1:04 AM FINDINGS: Lungs: Unremarkable. No consolidation. Pleural spaces: Unremarkable. No pleural effusion. No pneumothorax. Heart/Mediastinum: Unremarkable. No cardiomegaly. Bones/joints: Unremarkable. IMPRESSION: No acute findings. Degree of lung inflation is normal. Cardiac silhouette appears normal. No adenopathy or hilar mass. No evidence of pulmonary edema. No focal consolidation or parenchymal lung mass. No pleural effusion or pneumothorax. Osseous structures show no concerning abnormality. IMPRESSION: No acute or focal cardiopulmonary process. Electronically signed by: Tolu Balderas On 09/11/2020 00:11:13 AM
[2020-09-11 00:11] LABS: BASO % 0.5 % (0.0-1.0); EOS # 0.1 10^3/uL (0.0-0.5); HEMATOCRIT 43.1 % (36.0-47.0); HEMOGLOBIN 13.9 g/dl (12.0-15.5); LYMPH # 1.5 10^3/uL (1.5-5.0); LYMPH % 23.1 % (24.0-44.0); MEAN CORPUSCULAR HGB CONC 32.3 g/dl (32.0-36.5); MEAN CORPUSCULAR VOLUME 83.9 fl (80.0-96.0); MONO # 0.7 10^3/uL (0.0-0.8); MONO % 10.2 % (2.0-8.0); NEUTROPHILS # 4.2 10^3/uL (1.5-8.5); NEUTROPHILS % 63.4 % (36.0-66.0); PLATELET COUNT, AUTOMATED 307 10^3/uL (150-450); RED BLOOD COUNT 5.14 10^6/uL (4.00-5.40); WHITE BLOOD COUNT 6.6 10^3/uL (4.0-10.0)
[2020-09-11 00:20] LABS: INR 0.9; PROTHROMBIN TIME 12.3 SECONDS (12.5-14.3)
[2020-09-11 00:21] LABS: PARTIAL THROMBOPLASTIN TIME 28.5 SECONDS (24.2-38.5)
[2020-09-11 00:32] LABS: D-DIMER QUANT 330.73 ng/ml (<500)
[2020-09-11] MEDS ORDERED: NS 1,000 ML IV ONE (00:40)
[2020-09-11] MEDS ORDERED: KETOROLAC 30 MG/ML 1ML VIAL IV ONE (00:40)
[2020-09-11] MEDS ORDERED: ONDANSETRON 4MG/2ML VIAL IV ONE (00:40)
[2020-09-11 00:48] LABS: HCG, SERUM QUALITATIVE NEGATIVE (NEGATIVE)
[2020-09-11 00:49] LABS: ALBUMIN 3.3 GM/DL (3.2-5.2); ALT/SGPT 68 U/L (12-78); BILIRUBIN,TOTAL 0.2 MG/DL (0.2-1.0); BLOOD UREA NITROGEN 10 MG/DL (7-18); C REACTIVE PROTEIN QUANTITATIV 2.55 MG/DL (0.00-0.30); CALCIUM LEVEL 9.2 MG/DL (8.5-10.1); CARBON DIOXIDE LEVEL 25 MEQ/L (21-32); CHLORIDE LEVEL 104 MEQ/L (98-107); CK-MB VALUE MASS < 1.0 NG/ML (<3.6); CPK CREATINE PHOSPHOKINASE 44 U/L (26-192); CREATININE FOR GFR 0.57 MG/DL (0.55-1.30); FERRITIN 45 NG/ML (8-252); GLOMERULAR FILTRATION RATE > 60.0 (>60); GLUCOSE, FASTING 116 MG/DL (70-100); LDH LACTATE DEHYDROGENASE 216 U/L (84-246); MB/CK RELATIVE INDEX 2.27 (< OR =4); POTASSIUM SERUM 4.4 MEQ/L (3.5-5.1); SODIUM LEVEL 137 MEQ/L (136-145); TOTAL PROTEIN 7.4 GM/DL (6.4-8.2); TROPONIN I < 0.02 NG/ML (< 0.10)
[2020-09-11] MEDS ORDERED: CETI-24 (01:29)
[2020-09-11] MEDS ORDERED: LABE100T4 PO (01:30)
[2020-09-11] MEDS ORDERED: ONDA4TAB6 PO (01:34)
[2020-09-11 02:37] VITALS: BP 116/60
--- NOTE | 2020-09-12 05:36 | ECGEPIP ---
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
== END 2020-09-11 02:47 | disposition home or self-care (01) ==
LOC: M ED 23:24
DX: U07.1 COVID-19 (principal); F33.9 Major depressive disorder, recurrent, unspecified; F43.10 Post-traumatic stress disorder, unspecified; Z79.899 Other long term (current) drug therapy; Z79.82 Long term (current) use of aspirin
CPT/HCPCS: 71045; 80053; 82550; 82553; 82728; 83605; 83615; 84703; 85025; 85379; 85384; 85610; 85730; 86140; 93005; 93041; 96361; 96374; 96375; 99285; J1885; J2405

== ENCOUNTER 2020-09-16 15:39 | Emergency (ER) | payer OTHER ==
[~2020-09-16] VITALS: Ht 167.6 cm; Wt 132.6 kg
[~2020-09-16 15:39] MED LIST changes: +CETI-24; +LABE100T4 PO
[2020-09-16] MEDS ORDERED: MELO15TA28 PO (15:49)
[2020-09-16] MEDS ORDERED: TRIL600T PO (15:49)
[2020-09-16] MEDS ORDERED: SERT-141 PO (15:49)
[2020-09-16] MEDS ORDERED: TAMSULOSIN 0.4 MG CAP PO ONE (17:35)
[2020-09-16] MEDS ORDERED: KETOROLAC 30 MG/ML 1ML VIAL IV ONE (17:35)
[2020-09-16] MEDS ORDERED: NS 1,000 ML IV ONE (17:35)
[2020-09-16 18:33] LABS: BASO % 0.2 % (0.0-1.0); EOS # 0.1 10^3/uL (0.0-0.5); EOS % 1.3 % (0.0-3.0); HEMATOCRIT 42.1 % (36.0-47.0); HEMOGLOBIN 13.2 g/dl (12.0-15.5); LYMPH # 1.9 10^3/uL (1.5-5.0); LYMPH % 31.1 % (24.0-44.0); MEAN CORPUSCULAR HEMOGLOBIN 26.7 pg (27.0-33.0); MEAN CORPUSCULAR HGB CONC 31.4 g/dl (32.0-36.5); MEAN CORPUSCULAR VOLUME 85.2 fl (80.0-96.0); MONO # 0.6 10^3/uL (0.0-0.8); MONO % 9.5 % (2.0-8.0); NEUTROPHILS # 3.6 10^3/uL (1.5-8.5); NEUTROPHILS % 57.4 % (36.0-66.0); PLATELET COUNT, AUTOMATED 305 10^3/uL (150-450); RED BLOOD COUNT 4.94 10^6/uL (4.00-5.40); WHITE BLOOD COUNT 6.2 10^3/uL (4.0-10.0)
--- NOTE | 2020-09-16 19:31 | REPVR ---
PROCEDURE INFORMATION: Exam: CT Abdomen And Pelvis Without Contrast Exam date and time: 09/16/2020 6:33 PM Age: 34 years old Clinical indication: Pain; Other: Dysuria; Other: Right flank; Additional info: R flank pain, dysuria, HX stones TECHNIQUE: Imaging protocol: Computed tomography of the abdomen and pelvis without contrast. Radiation optimization: All CT scans at this facility use at least one of these dose optimization techniques: automated exposure control; mA and/or kV adjustment per patient size (includes targeted exams where dose is matched to clinical indication); or iterative reconstruction. COMPARISON: CT ABD/PEL W/IV CONTRAST ONLY 09/28/2019 11:12 PM FINDINGS: Limitations: Absence of intravenous contrast limits evaluation of vascular and visceral structures. Liver: There are no focal liver lesions. Gallbladder and bile ducts: No definite calculi are seen in the gallbladder-see below. Pancreas: The pancreas is normal. Spleen: The spleen is unremarkable other than 2 splenules. Adrenal glands: The adrenal glands are unremarkable. Kidneys and ureters: The kidneys are unremarkable other than a punctate nonobstructing calculus on the right. Stomach and bowel: There is no evidence of intestinal obstruction. In Appendix: The appendix is unremarkable. Intraperitoneal space: Unremarkable. No free air. No significant fluid collection. Vasculature: The aorta is unremarkable. Lymph nodes: Unremarkable. No enlarged lymph nodes. Urinary bladder: The bladder is unremarkable. Reproductive: There is an IUD in the uterus. Bones/joints: Unremarkable. No acute fracture. Soft tissues: Midline upper anterior wall abdominal hernia is again noted. It contains transverse colon which does not appear to be incarcerated. Other findings: Patchy areas of peripheral ground-glass attenuation are seen in both lower lobes. IMPRESSION: There is no hydronephrosis to suggest acute urinary tract obstruction. There is a punctate nonobstructing calculus in the right kidney. There is a large anterior abdominal wall hernia which is unchanged in comparison to the prior study; it does contain transverse colon which does not appear to be incarcerated. There are some vague radiodensities in the gallbladder which could represent a phryngian cap or early wall calcification however small calculi are within the differential. Electronically signed by: Suzy Box On 09/16/2020 19:31:02 PM
[2020-09-16] MEDS ORDERED: ISOVUE-370 76% 100ML VIAL As Ordered ONE (21:33)
[2020-09-16] MEDS: COMBIVENT RESPIMAT 100-20MCG INHALER 4GM INH SCH ×2 (22:18→22:44)
--- NOTE | 2020-09-16 22:24 | REPVR ---
PROCEDURE INFORMATION: Exam: CTA Chest With Contrast Exam date and time: 09/16/2020 9:40 PM Age: 34 years old Clinical indication: Shortness of breath; Chest pain; Other: Central; Additional info: SOB, central cp, recent covid TECHNIQUE: Imaging protocol: Computed tomographic angiography of the chest with contrast. 3D rendering (Not supervised by radiologist): MIP and/or 3D reconstructed images were created by the technologist. Radiation optimization: All CT scans at this facility use at least one of these dose optimization techniques: automated exposure control; mA and/or kV adjustment per patient size (includes targeted exams where dose is matched to clinical indication); or iterative reconstruction. Contrast material: ISOVUE 370; Contrast volume: 75 ml; Contrast route: INTRAVENOUS (IV); COMPARISON: CR PORTABLE CHEST X-RAY 09/10/2020 11:40 PM FINDINGS: Pulmonary arteries: There is no evidence of filling defects within the pulmonary arterial circulation to suggest pulmonary embolism. Aorta: Unremarkable. No aortic aneurysm. No aortic dissection. Lungs: There are patchy ground-glass attenuation regions of consolidation in the right middle and lower lobes as well as in the left upper lobe and lower lobe. Pleural spaces: No pleural effusions. Heart: No cardiomegaly or pericardial effusion. Lymph nodes: No mediastinal or hilar lymphadenopathy. There are prominent bilateral axillary lymph nodes on the right measuring up to 2.9 cm in on the left 3 cm but they have fatty amie and are reniform in configuration not suggesting reactive lymph nodes. Liver: There is hepatomegaly and fatty infiltration of the liver. Bones/joints: Unremarkable. No acute fracture. Soft tissues: Unremarkable. IMPRESSION: 1. No evidence of pulmonary emboli. 2. Patchy areas of ground-glass attenuation infiltrates throughout both lungs consistent with patient's history of recent Covid pneumonia. Electronically signed by: Suzy Box On 09/16/2020 22:24:05 PM
[2020-09-16] MEDS ORDERED: PRED20TA PO (23:02)
[2020-09-16] MEDS ORDERED: methylPREDNISolone 125MG 2ML VIAL IV ONE (23:05)
[2020-09-16 23:26] VITALS: BP 127/68
== END 2020-09-16 23:30 | disposition home or self-care (01) ==
LOC: M ED 15:39
DX: R06.02 Shortness of breath (principal); R10.9 Unspecified abdominal pain; Z86.16 Personal history of COVID-19; I10 Essential (primary) hypertension; J45.909 Unspecified asthma, uncomplicated; G40.909 Epilepsy, unspecified, not intractable, without status epilepticus; Z79.899 Other long term (current) drug therapy; Z79.82 Long term (current) use of aspirin
CPT/HCPCS: 36415; 71275; 74176; 80047; 81001; 84702; 85025; 85379; 87086; 94640; 96361; 96374; 96375; 99284; J1885; J2930; Q9967

== ENCOUNTER → 2020-11-29 | Outpatient (REF) | payer OTHER ==
[~2020-11-29] MED LIST changes: +PRED20TA PO; +SERT-141 PO; +TRIL600T PO
== END ==
LOC: M SFHCWAGY 19:18
PROVIDERS: ATTEND Nurse Practitioner Women's Health
DX: Z12.4 Encounter for screening for malignant neoplasm of cervix (principal)

== ENCOUNTER 2021-08-01 19:48 | Emergency (ER) | payer OTHER ==
[~2021-08-01] VITALS: Ht 167.6 cm; Wt 142.0 kg
[2021-08-01 20:47] LABS: BASO % 0.3 % (0.0-1.0); EOS # 0.2 10^3/uL (0.0-0.5); EOS % 1.6 % (0.0-3.0); HEMATOCRIT 40.1 % (36.0-47.0); LYMPH % 26.6 % (24.0-44.0); MEAN CORPUSCULAR HGB CONC 32.4 g/dl (32.0-36.5); MEAN CORPUSCULAR VOLUME 86.2 fl (80.0-96.0); MONO # 0.6 10^3/uL (0.0-0.8); MONO % 5.2 % (2.0-8.0); NEUTROPHILS # 7.5 10^3/uL (1.5-8.5); NEUTROPHILS % 65.7 % (36.0-66.0); RED BLOOD COUNT 4.65 10^6/uL (4.00-5.40); WHITE BLOOD COUNT 11.4 10^3/uL (4.0-10.0)
[2021-08-01 20:54] LABS: HCG, SERUM QUALITATIVE NEGATIVE (NEGATIVE)
[2021-08-01 20:57] LABS: BLOOD UREA NITROGEN 11 MG/DL (7-18); CALCIUM LEVEL 8.9 MG/DL (8.5-10.1); CARBON DIOXIDE LEVEL 30 MEQ/L (21-32); CHLORIDE LEVEL 105 MEQ/L (98-107); CK-MB VALUE MASS < 1.0 NG/ML (<3.6); CPK CREATINE PHOSPHOKINASE 34 U/L (26-192); CREATININE FOR GFR 0.59 MG/DL (0.55-1.30); GLOMERULAR FILTRATION RATE > 60.0 (>60); GLUCOSE, FASTING 99 MG/DL (70-100); MB/CK RELATIVE INDEX 2.94 (< OR =4); NT-PRO BNP 39 PG/ML (<125); SODIUM LEVEL 138 MEQ/L (136-145)
[2021-08-01 23:40] LABS: APPEARANCE, URINE CLOUDY (CLEAR); BACTERIA, URINE AUTO NEGATIVE (NEGATIVE); BILIRUBIN, URINE AUTO NEGATIVE (NEGATIVE); BLOOD, URINE BLOOD NEGATIVE (NEGATIVE); COLOR, URINE YELLOW (YELLOW); GLUCOSE, URINE (UA) AUTO NEGATIVE (NEGATIVE); KETONE, URINE AUTO NEGATIVE (NEGATIVE); LEUKOCYTE ESTERASE, URINE AUTO 2+ (NEGATIVE); MUCUS, URINE SMALL (NEGATIVE); NITRITE, URINE AUTO NEGATIVE (NEGATIVE); PROTEIN, URINE AUTO 1+ mg/dL (NEGATIVE); RBC, URINE AUTO 5 /HPF (0-3); SPECIFIC GRAVITY URINE AUTO 1.019 (1.002-1.035); SQUAMOUS EPITHELIAL CELL UR AU 29 /HPF (0-6); UROBILINOGEN, URINE AUTO 0.2 mg/dL (0.0-2.0); WBC, URINE AUTO 6 /HPF (0-3)
[2021-08-02] MEDS ORDERED: IBUPROFEN 600MG TAB PO ONE (00:25)
[2021-08-02] MEDS ORDERED: ACETAMINOPHEN TAB 650MG DOSE (2X325MG) PO ONE (00:25)
[2021-08-02 00:34] VITALS: BP 141/71
== END 2021-08-02 00:49 | disposition home or self-care (01) ==
LOC: M ED 19:48
DX: R51.9 Headache, unspecified (principal); R07.9 Chest pain, unspecified; I10 Essential (primary) hypertension; M54.50 Low back pain, unspecified; R22.43 Localized swelling, mass and lump, lower limb, bilateral; R94.31 Abnormal electrocardiogram [ECG] [EKG]; J45.909 Unspecified asthma, uncomplicated; F43.10 Post-traumatic stress disorder, unspecified; Z79.82 Long term (current) use of aspirin; Z79.899 Other long term (current) drug therapy

== ENCOUNTER → 2021-08-17 | Outpatient (CLI) | payer OTHER ==
[2021-08-17 12:57] LABS: BLOOD UREA NITROGEN 11 MG/DL (7-18); CALCIUM LEVEL 8.9 MG/DL (8.5-10.1); CARBON DIOXIDE LEVEL 27 MEQ/L (21-32); CHLORIDE LEVEL 106 MEQ/L (98-107); CREATININE FOR GFR 0.56 MG/DL (0.55-1.30); GLOMERULAR FILTRATION RATE > 60.0 (>60); GLUCOSE, FASTING 109 MG/DL (70-100); POTASSIUM SERUM 4.2 MEQ/L (3.5-5.1); SODIUM LEVEL 139 MEQ/L (136-145)
== END ==
LOC: M WUC 09:33
PROVIDERS: ATTEND Physician Assistant
DX: I10 Essential (primary) hypertension (principal)

== ENCOUNTER 2021-09-09 15:21 | Emergency (ER) | payer MEDICAID, OTHER, SELFPAY ==
[~2021-09-09] VITALS: Ht 167.6 cm; Wt 141.4 kg
[2021-09-09] MEDS ORDERED: KETOROLAC 30 MG/ML 1ML VIAL IV ONE (16:30)
[2021-09-09] MEDS ORDERED: NS 1,000 ML IV ONE (16:30)
[2021-09-09] MEDS ORDERED: ONDANSETRON 4MG/2ML VIAL IV ONE (16:30)
[2021-09-09 17:10] LABS: BASO # 0.1 10^3/uL (0.0-0.2); BASO % 0.4 % (0.0-1.0); EOS # 0.1 10^3/uL (0.0-0.5); EOS % 0.8 % (0.0-3.0); HEMATOCRIT 43.4 % (36.0-47.0); HEMOGLOBIN 14.3 g/dl (12.0-15.5); LYMPH # 0.6 10^3/uL (1.5-5.0); MEAN CORPUSCULAR HEMOGLOBIN 28.5 pg (27.0-33.0); MEAN CORPUSCULAR HGB CONC 32.9 g/dl (32.0-36.5); MEAN CORPUSCULAR VOLUME 86.5 fl (80.0-96.0); MONO # 0.8 10^3/uL (0.0-0.8); NEUTROPHILS # 11.3 10^3/uL (1.5-8.5); NEUTROPHILS % 87.1 % (36.0-66.0); PLATELET COUNT, AUTOMATED 312 10^3/uL (150-450); RED BLOOD COUNT 5.02 10^6/uL (4.00-5.40); WHITE BLOOD COUNT 12.9 10^3/uL (4.0-10.0)
[2021-09-09 17:27] LABS: ERYTHROCYTE SEDIMENTATION RATE 41 mm/hr (0-20)
[2021-09-09 17:40] LABS: HCG, SERUM QUALITATIVE NEGATIVE (NEGATIVE)
[2021-09-09 17:51] LABS: BLOOD UREA NITROGEN 8 MG/DL (7-18); C REACTIVE PROTEIN QUANTITATIV 5.53 MG/DL (0.00-0.30); CALCIUM LEVEL 8.7 MG/DL (8.5-10.1); CARBON DIOXIDE LEVEL 28 MEQ/L (21-32); CHLORIDE LEVEL 102 MEQ/L (98-107); CREATININE FOR GFR 0.65 MG/DL (0.55-1.30); GLOMERULAR FILTRATION RATE > 60.0 (>60); GLUCOSE, FASTING 101 MG/DL (70-100); POTASSIUM SERUM 5.1 MEQ/L (3.5-5.1); SODIUM LEVEL 134 MEQ/L (136-145)
[2021-09-09] MEDS ORDERED: ISOVUE-370 76% 100ML VIAL As Ordered ONE (17:58)
[2021-09-09] MEDS ORDERED: PENICILLIN V POTASSIUM 500 MG TAB PO ONE (18:00)
[2021-09-09 18:32] VITALS: BP 142/83
[2021-09-09] MEDS ORDERED: PENI500T PO (18:50)
[2021-09-09] MEDS ORDERED: ONDA4TAB6 PO (18:50)
== END 2021-09-09 19:08 | disposition home or self-care (01) ==
LOC: M ED 15:21
DX: U07.1 COVID-19 (principal); J02.0 Streptococcal pharyngitis; D47.Z2 Castleman disease; G50.0 Trigeminal neuralgia; I10 Essential (primary) hypertension; J45.909 Unspecified asthma, uncomplicated; Z79.899 Other long term (current) drug therapy
CPT/HCPCS: 71275; 80048; 82550; 84703; 85025; 85379; 85652; 86140; 87798; 87880; 93005; 96361; 96374; 96375; 99284; J1885; J2405; Q9967

== ENCOUNTER 2021-09-13 22:06 | Emergency (ER) | payer MEDICAID ==
[~2021-09-13] VITALS: Ht 167.6 cm; Wt 141.4 kg
[~2021-09-13 22:06] MED LIST changes: +PENI500T PO
[2021-09-13 22:07] VITALS: BP 130/73
[2021-09-14] MEDS ORDERED: METOCLOPRAMIDE INJ 10MG/2ML VIAL (J2765 PER 1) IV ONE (00:55)
[2021-09-14] MEDS ORDERED: NS 1,000 ML IV ONE (00:55)
[2021-09-14] MEDS ORDERED: PROM25SU3 PR (01:28)
== END 2021-09-14 02:51 | disposition home or self-care (01) ==
LOC: M ED 22:06
DX: U07.1 COVID-19 (principal); R42 Dizziness and giddiness; R11.2 Nausea with vomiting, unspecified; J45.909 Unspecified asthma, uncomplicated; R51.9 Headache, unspecified; Z79.82 Long term (current) use of aspirin; Z79.899 Other long term (current) drug therapy
CPT/HCPCS: 93005; 96361; 96374; 99284; J2765

== ENCOUNTER 2021-09-27 18:58 | Observation (INO) | payer MEDICAID ==
[~2021-09-27] VITALS: Ht 167.6 cm; Wt 141.4 kg
[~2021-09-27 18:58] MED LIST changes: +PROM25SU3 PR
[2021-09-27] MEDS ORDERED: LISI10TA22 (19:14)
[2021-09-27 19:25] VITALS: BP 145/90
[2021-09-27] MEDS ORDERED: ISOVUE-370 76% 100ML VIAL As Ordered ONE (19:28)
[2021-09-27 19:40] VITALS: BP 145/78
[2021-09-27 19:55] VITALS: BP 146/80
[2021-09-27 20:10] VITALS: BP 143/74
[2021-09-27 20:10] LABS: BASO % 0.3 % (0.0-1.0); EOS # 0.2 10^3/uL (0.0-0.5); EOS % 2.1 % (0.0-3.0); HEMATOCRIT 38.9 % (36.0-47.0); HEMOGLOBIN 12.6 g/dl (12.0-15.5); LYMPH # 2.5 10^3/uL (1.5-5.0); LYMPH % 21.5 % (24.0-44.0); MEAN CORPUSCULAR HEMOGLOBIN 28.2 pg (27.0-33.0); MEAN CORPUSCULAR HGB CONC 32.4 g/dl (32.0-36.5); MONO # 0.6 10^3/uL (0.0-0.8); MONO % 5.2 % (2.0-8.0); NEUTROPHILS # 8.1 10^3/uL (1.5-8.5); NEUTROPHILS % 70.2 % (36.0-66.0); PLATELET COUNT, AUTOMATED 337 10^3/uL (150-450); RED BLOOD COUNT 4.47 10^6/uL (4.00-5.40); WHITE BLOOD COUNT 11.5 10^3/uL (4.0-10.0)
[2021-09-27 21:18] VITALS: BP 123/60
[2021-09-27 21:37] LABS: CK-MB VALUE MASS < 1.0 NG/ML (<3.6); CPK CREATINE PHOSPHOKINASE 990 U/L (26-192)
[2021-09-27] MEDS ORDERED: diphenhydrAMINE 50MG/ML VIAL (J1200) IV ONE (21:45)
[2021-09-27] MEDS ORDERED: NS 1,000 ML IV ONE (21:45)
[2021-09-27] MEDS ORDERED: METOCLOPRAMIDE INJ 10MG/2ML VIAL (J2765 PER 1) IV ONE (22:00)
[2021-09-27] MEDS ORDERED: KETOROLAC 30 MG/ML 1ML VIAL IV ONE (22:00)
[2021-09-27] MEDS ORDERED: ASPIRIN 81 MG CHEW TABLET PO ONE (23:35)
[2021-09-27] MEDS ORDERED: ATORVASTATIN 20 MG TAB PO ONE (23:35)
[2021-09-27] MEDS ORDERED: OMEP-173 PO (23:53)
[2021-09-27] MEDS ORDERED: MELO15TA28 PO (23:53)
[2021-09-27] MEDS ORDERED: ASPI-161 PO (23:53)
[2021-09-27] MEDS ORDERED: ONDA4TAB6 PO (23:53)
[2021-09-27] MEDS ORDERED: CETI-24 PO (23:53)
[2021-09-27] MEDS ORDERED: CELE40TA PO (23:53)
[2021-09-27] MEDS ORDERED: LISI10TA22 PO (23:53)
[2021-09-27] MEDS ORDERED: HOME MED LIST COMPLETE! XX SCH (23:55)
[2021-09-27] MEDS ORDERED: MULTCHW12 PO (23:55)
[2021-09-28 00:34] LABS: RSV AMPLIFICATION NEGATIVE (NEGATIVE)
[2021-09-28] MEDS ORDERED: ALBUTEROL 90 MCG/ACT 8GM HFA INHALER INH PRN (03:45)
[2021-09-28] MEDS ORDERED: CETIRIZINE (ZyrTEC) 10 MG TAB PO PRN (03:45)
[2021-09-28 08:09] LABS: ALBUMIN 2.7 GM/DL (3.2-5.2); ALT/SGPT 51 U/L (12-78); BILIRUBIN,DIRECT < 0.1 MG/DL (0.0-0.2); BILIRUBIN,TOTAL 0.4 MG/DL (0.2-1.0); BLOOD UREA NITROGEN 8 MG/DL (7-18); C REACTIVE PROTEIN QUANTITATIV 2.81 MG/DL (0.00-0.30); CALCIUM LEVEL 8.8 MG/DL (8.5-10.1); CARBON DIOXIDE LEVEL 26 MEQ/L (21-32); CHLORIDE LEVEL 108 MEQ/L (98-107); CREATININE FOR GFR 0.47 MG/DL (0.55-1.30); GLOMERULAR FILTRATION RATE > 60.0 (>60); GLUCOSE, FASTING 99 MG/DL (70-100); SODIUM LEVEL 139 MEQ/L (136-145); URIC ACID 4.5 MG/DL (2.6-6.0)
[2021-09-28 08:44] LABS: BASO % 0.2 % (0.0-1.0); EOS # 0.3 10^3/uL (0.0-0.5); EOS % 2.8 % (0.0-3.0); HEMATOCRIT 34.9 % (36.0-47.0); HEMOGLOBIN 11.4 g/dl (12.0-15.5); LYMPH # 2.3 10^3/uL (1.5-5.0); LYMPH % 24.7 % (24.0-44.0); MEAN CORPUSCULAR HEMOGLOBIN 27.7 pg (27.0-33.0); MEAN CORPUSCULAR HGB CONC 32.7 g/dl (32.0-36.5); MEAN CORPUSCULAR VOLUME 84.9 fl (80.0-96.0); MONO # 0.6 10^3/uL (0.0-0.8); MONO % 6.6 % (2.0-8.0); NEUTROPHILS # 6.1 10^3/uL (1.5-8.5); PLATELET COUNT, AUTOMATED 324 10^3/uL (150-450); RED BLOOD COUNT 4.11 10^6/uL (4.00-5.40); WHITE BLOOD COUNT 9.3 10^3/uL (4.0-10.0)
[2021-09-28 09:00] LABS: INR 0.99; PROTHROMBIN TIME 13.5 SECONDS (12.7-14.5)
[2021-09-28] MEDS ORDERED: ASPIRIN 81MG ENTERIC TABLET PO SCH (09:00)
[2021-09-28] MEDS ORDERED: OMEPRAZOLE 20MG CAP PO SCH (09:00)
[2021-09-28] MEDS ORDERED: CitaloPRAM (CeleXA) 20 MG TAB PO SCH (09:00)
[2021-09-28 09:01] LABS: PARTIAL THROMBOPLASTIN TIME 29.7 SECONDS (25.9-37.0)
[2021-09-28 09:03] LABS: D-DIMER QUANT 413.42 ng/ml (<500); ERYTHROCYTE SEDIMENTATION RATE 45 mm/hr (0-20)
[2021-09-28 11:18] LABS: VITAMIN B12 LEVEL 284 PG/ML (247-911)
[2021-09-28] MEDS ORDERED: ONDANSETRON 4MG/2ML VIAL IV SCH (12:10)
[2021-09-28] MEDS ORDERED: ONDANSETRON 4MG/2ML VIAL IV PRN (12:15)
[2021-09-28] MEDS ORDERED: NIRM1TAB PO (13:41)
[2021-09-28 15:01] VITALS: BP 159/79
[2021-09-28] MEDS ORDERED: CALC500T60 PO (15:16)
== END 2021-09-28 15:05 | disposition home or self-care (01) ==
LOC: M ED 18:58 → EDBD 18:58 → M ED INP 18:59
PROVIDERS: ADMIT Family Medicine; ATTEND Family Medicine
DX: G43.909 Migraine, unspecified, not intractable, without status migrainosus (principal); E83.52 Hypercalcemia; R20.2 Paresthesia of skin; R01.1 Cardiac murmur, unspecified; I10 Essential (primary) hypertension; J45.909 Unspecified asthma, uncomplicated; F41.9 Anxiety disorder, unspecified; F32.9 Major depressive disorder, single episode, unspecified; G50.0 Trigeminal neuralgia; D47.Z2 Castleman disease; Z87.891 Personal history of nicotine dependence; E66.01 Morbid (severe) obesity due to excess calories; Z86.16 Personal history of COVID-19; Z79.82 Long term (current) use of aspirin; Z79.899 Other long term (current) drug therapy
CPT/HCPCS: 36415; 70450; 70496; 70551; 71045; 80047; 80048; 80076; 82330; 82550; 82553; 82607; 83605; 83735; 84443; 84550; 85025; 85379; 85610; 85652; 85730; 86140; 87426; 87631; 93005; 93041; 94760; 96361; 96374; 96375; 99285; J1200; J1885; J2405; J2765; Q9967

== ENCOUNTER → 2021-10-05 | Outpatient (CLI) | payer OTHER ==
[~2021-10-05] MED LIST changes: +ASPI-161 PO; +CALC500T60 PO; +CELE40TA PO; +CETI-24 PO; +LISI10TA22; +LISI10TA22 PO; +MULTCHW12 PO; +NIRM1TAB PO; +OMEP-173 PO
[2021-10-05 11:18] LABS: BLOOD UREA NITROGEN 10 MG/DL (7-18); CALCIUM LEVEL 8.7 MG/DL (8.5-10.1); CARBON DIOXIDE LEVEL 27 MEQ/L (21-32); CHLORIDE LEVEL 105 MEQ/L (98-107); CREATININE FOR GFR 0.58 MG/DL (0.55-1.30); GLOMERULAR FILTRATION RATE > 60.0 (>60); GLUCOSE, FASTING 106 MG/DL (70-100); POTASSIUM SERUM 4.3 MEQ/L (3.5-5.1); SODIUM LEVEL 139 MEQ/L (136-145)
[2021-10-05 11:41] LABS: PTH INTACT 77.2 PG/ML (18.5-88.0)
== END ==
LOC: M WUC 09:41
PROVIDERS: ATTEND Physician Assistant
DX: E83.51 Hypocalcemia (principal)

== ENCOUNTER → 2021-10-18 | Outpatient (CLI) | payer OTHER ==
[2021-10-19 13:09] LABS: ANTI DOUBLE STRAND-DNA AB 1 IU/mL (0-9); ANTINUCLEAR ANTIBODIES DIRECT Positive (Negative); RNP ANTIBODIES 2.2 AI (0.0-0.9); SJOGREN'S ANTI SS-A <0.2 AI (0.0-0.9); SJOGREN'S ANTI SS-B <0.2 AI (0.0-0.9); SMITH ANTIBODIES <0.2 AI (0.0-0.9)
== END ==
LOC: M WUC 11:07
PROVIDERS: ATTEND Physician Assistant
DX: R76.9 Abnormal immunological finding in serum, unspecified (principal)

== ENCOUNTER → 2021-11-10 | Outpatient (REF) | payer MEDICAID | LOC: M LAB REF 18:55 | PROVIDERS: ATTEND Nurse Practitioner Family | DX: J06.9 Acute upper respiratory infection, unspecified (principal) ==

== ENCOUNTER 2021-11-18 11:44 | Emergency (ER) | payer MEDICAID, OTHER ==
[~2021-11-18] VITALS: Ht 167.6 cm; Wt 141.5 kg
[2021-11-18] MEDS ORDERED: guaiFENesin ER 600 MG TAB PO ONE (12:30)
[2021-11-18] MEDS ORDERED: NS 1,000 ML IV ONE (12:30)
[2021-11-18] MEDS ORDERED: KETOROLAC 30 MG/ML 1ML VIAL IV ONE (12:30)
[2021-11-18] MEDS ORDERED: ONDANSETRON 4MG/2ML VIAL IV ONE (12:30)
[2021-11-18 13:43] LABS: BASO % 0.3 % (0.0-1.0); EOS # 0.3 10^3/uL (0.0-0.5); EOS % 3.1 % (0.0-3.0); HEMATOCRIT 36.7 % (36.0-47.0); HEMOGLOBIN 11.7 g/dl (12.0-15.5); LYMPH # 2.4 10^3/uL (1.5-5.0); LYMPH % 23.7 % (24.0-44.0); MEAN CORPUSCULAR HEMOGLOBIN 27.5 pg (27.0-33.0); MEAN CORPUSCULAR HGB CONC 31.9 g/dl (32.0-36.5); MEAN CORPUSCULAR VOLUME 86.2 fl (80.0-96.0); MONO # 0.6 10^3/uL (0.0-0.8); MONO % 6.4 % (2.0-8.0); NEUTROPHILS # 6.6 10^3/uL (1.5-8.5); NEUTROPHILS % 65.7 % (36.0-66.0); PLATELET COUNT, AUTOMATED 330 10^3/uL (150-450); RED BLOOD COUNT 4.26 10^6/uL (4.00-5.40); WHITE BLOOD COUNT 10.1 10^3/uL (4.0-10.0)
[2021-11-18 14:08] LABS: BLOOD UREA NITROGEN 8 MG/DL (7-18); CALCIUM LEVEL 8.2 MG/DL (8.5-10.1); CARBON DIOXIDE LEVEL 28 MEQ/L (21-32); CHLORIDE LEVEL 105 MEQ/L (98-107); CREATININE FOR GFR 0.54 MG/DL (0.55-1.30); GLOMERULAR FILTRATION RATE > 60.0 (>60); GLUCOSE, FASTING 97 MG/DL (70-100); HCG, SERUM QUANTITATIVE < 1.0 MIU/ML; SODIUM LEVEL 139 MEQ/L (136-145)
[2021-11-18] MEDS ORDERED: PENI500T PO (15:18)
[2021-11-18 15:30] VITALS: BP 140/81
== END 2021-11-18 15:35 | disposition home or self-care (01) ==
LOC: M ED 11:44
DX: J02.0 Streptococcal pharyngitis (principal); R30.0 Dysuria; I10 Essential (primary) hypertension; Z97.5 Presence of (intrauterine) contraceptive device
CPT/HCPCS: 71046; 80048; 81001; 84702; 85025; 87486; 87581; 87633; 87798; 87880; 96361; 96374; 99284; J1885; J2405

== ENCOUNTER 2022-02-03 19:28 | Emergency (ER) | payer OTHER ==
[~2022-02-03] VITALS: Ht 167.6 cm; Wt 140.1 kg
[~2022-02-03 19:28] MED LIST changes: -LABE100T4 PO; -LABE100T5 PO; +LABE100T6 PO; +LABE100T71 PO
[2022-02-03] MEDS ORDERED: PROMETHAZINE 25MG/ML 1ML VIAL IV ONE (21:30)
[2022-02-03] MEDS ORDERED: NS 1,000 ML IV ONE (21:30)
[2022-02-03 22:27] LABS: BASO % 0.3 % (0.0-1.0); EOS # 0.2 10^3/uL (0.0-0.5); EOS % 2.2 % (0.0-3.0); HEMATOCRIT 39.6 % (36.0-47.0); HEMOGLOBIN 13.1 g/dl (12.0-15.5); LYMPH # 1.7 10^3/uL (1.5-5.0); LYMPH % 18.2 % (24.0-44.0); MEAN CORPUSCULAR HEMOGLOBIN 28.5 pg (27.0-33.0); MEAN CORPUSCULAR HGB CONC 33.1 g/dl (32.0-36.5); MEAN CORPUSCULAR VOLUME 86.1 fl (80.0-96.0); MONO # 0.7 10^3/uL (0.0-0.8); NEUTROPHILS # 6.5 10^3/uL (1.5-8.5); NEUTROPHILS % 70.9 % (36.0-66.0); PLATELET COUNT, AUTOMATED 317 10^3/uL (150-450); WHITE BLOOD COUNT 9.1 10^3/uL (4.0-10.0)
[2022-02-03] MEDS ORDERED: PROM25TA12 PO (23:10)
[2022-02-03 23:52] LABS: HCG, SERUM QUALITATIVE NEGATIVE (NEGATIVE)
[2022-02-04 00:22] VITALS: BP 160/85
== END 2022-02-04 00:23 | disposition home or self-care (01) ==
LOC: M ED 19:28
DX: J06.9 Acute upper respiratory infection, unspecified (principal); B34.8 Other viral infections of unspecified site; Z88.8 Allergy status to other drugs, medicaments and biological substances
CPT/HCPCS: 80047; 84702; 84703; 85025; 87486; 87581; 87633; 87798; 96361; 96374; 99284; J2550

== ENCOUNTER 2022-02-22 16:23 | Emergency (ER) | payer OTHER ==
[~2022-02-22] VITALS: Ht 167.6 cm; Wt 139.0 kg
[~2022-02-22 16:23] MED LIST changes: +PROM25TA12 PO
[2022-02-22] MEDS ORDERED: ACET-683 PO (16:54)
[2022-02-22] MEDS ORDERED: DIVA250T67 PO (16:54)
[2022-02-22] MEDS ORDERED: CIPR500T39 PO (16:54)
[2022-02-22 17:53] LABS: BASO % 0.3 % (0.0-1.0); EOS # 0.3 10^3/uL (0.0-0.5); EOS % 2.4 % (0.0-3.0); HEMATOCRIT 40.9 % (36.0-47.0); HEMOGLOBIN 13.2 g/dl (12.0-15.5); LYMPH # 2.4 10^3/uL (1.5-5.0); LYMPH % 19.4 % (24.0-44.0); MEAN CORPUSCULAR HEMOGLOBIN 28.1 pg (27.0-33.0); MEAN CORPUSCULAR HGB CONC 32.3 g/dl (32.0-36.5); MEAN CORPUSCULAR VOLUME 87.2 fl (80.0-96.0); MONO # 0.8 10^3/uL (0.0-0.8); MONO % 6.3 % (2.0-8.0); NEUTROPHILS # 8.9 10^3/uL (1.5-8.5); PLATELET COUNT, AUTOMATED 335 10^3/uL (150-450); RED BLOOD COUNT 4.69 10^6/uL (4.00-5.40); WHITE BLOOD COUNT 12.5 10^3/uL (4.0-10.0)
[2022-02-22 18:23] LABS: ALT/SGPT 49 U/L (12-78); BILIRUBIN,DIRECT < 0.1 MG/DL (0.0-0.2); BILIRUBIN,TOTAL 0.4 MG/DL (0.2-1.0); LIPASE 60 U/L (73-393); TOTAL PROTEIN 7.4 GM/DL (6.4-8.2)
[2022-02-22] MEDS ORDERED: NS 1,000 ML IV ONE (18:50)
[2022-02-22] MEDS ORDERED: PROMETHAZINE 25MG/ML 1ML VIAL IV ONE (18:50)
[2022-02-22] MEDS ORDERED: KETOROLAC 30 MG/ML 1ML VIAL IV ONE (18:50)
[2022-02-22] MEDS ORDERED: ASPE4PAD TOP (20:58)
[2022-02-22] MEDS ORDERED: METH-1165 PO (20:58)
[2022-02-22 21:04] VITALS: BP 168/88
== END 2022-02-22 21:17 | disposition home or self-care (01) ==
LOC: M ED 16:23
DX: M54.50 Low back pain, unspecified (principal); R10.9 Unspecified abdominal pain; I10 Essential (primary) hypertension; E78.5 Hyperlipidemia, unspecified; F17.200 Nicotine dependence, unspecified, uncomplicated; Z88.8 Allergy status to other drugs, medicaments and biological substances
CPT/HCPCS: 74176; 80047; 80076; 81000; 81015; 83690; 84702; 85025; 87086; 96361; 96374; 96375; 99283; J1885; J2550

== ENCOUNTER → 2022-03-28 | Outpatient (REF) | payer OTHER ==
[~2022-03-28] MED LIST changes: +ACET-683 PO; +ASPE4PAD TOP; +CIPR500T39 PO; +DIVA250T67 PO; +METH-1165 PO
== END ==
LOC: M LAB REF 16:30
PROVIDERS: ATTEND Physician Assistant
DX: R30.0 Dysuria (principal)

== ENCOUNTER → 2022-06-15 | Outpatient (CLI) | payer OTHER ==
[~2022-06-15] MED LIST changes: +GASTROGRAFIN SOLUTION 30ML As Ordered ONE; +ISOVUE-370 76% 100ML VIAL As Ordered ONE
== END ==
LOC: M RAD 15:17
PROVIDERS: ATTEND Surgery
DX: K43.2 Incisional hernia without obstruction or gangrene (principal)

== ENCOUNTER → 2022-10-03 | Outpatient (CLI) | payer OTHER ==
[~2022-10-03] MED LIST changes: +ALBU8.5H; +ALPR0.5T3; +ARIP1TAB4; +DIVA500T94; -GASTROGRAFIN SOLUTION 30ML As Ordered ONE; -ISOVUE-370 76% 100ML VIAL As Ordered ONE; +LOSA50TA28; +PENI500T; +PRAZ1CAP; +VERA40TA PO
== END ==
LOC: M SLEEP HO 11:34
PROVIDERS: ATTEND Physician Assistant
DX: R40.0 Somnolence (principal)

== ENCOUNTER → 2022-10-31 | Outpatient (REF) | payer OTHER ==
[2022-10-31 16:52] LABS: CHOLESTEROL RISK RATIO 3.9 (<5)
[2022-10-31 16:56] LABS: THYROID STIMULATING HORMONE 1.451 uIU/ML (0.55-4.78)
== END ==
LOC: M LAB REF 16:03
PROVIDERS: ATTEND Physician Assistant
DX: I10 Essential (primary) hypertension (principal); E66.9 Obesity, unspecified

== ENCOUNTER → 2022-11-05 | Outpatient (CLI) | payer OTHER | LOC: M RAD 18:57 | PROVIDERS: ATTEND Physician Assistant Medical | DX: M25.562 Pain in left knee (principal) ==

== ENCOUNTER → 2023-01-29 | Outpatient (CLI) | payer OTHER | LOC: M RAD 16:46 | PROVIDERS: ATTEND Physician Assistant | DX: S60.222A Contusion of left hand, initial encounter (principal); S20.212A Contusion of left front wall of thorax, initial encounter; W18.30XA Fall on same level, unspecified, initial encounter; Y92.009 Unspecified place in unspecified non-institutional (private) residence as the place of occurrence of the external cause ==

== ENCOUNTER → 2023-01-29 | Outpatient (REF) | payer OTHER | LOC: M WUC 20:59 | PROVIDERS: ATTEND Nurse Practitioner Family | DX: R30.0 Dysuria (principal) ==

== ENCOUNTER 2023-03-03 20:24 | Emergency (ER) | payer OTHER ==
[~2023-03-03] VITALS: Ht 167.6 cm; Wt 126.0 kg
[2023-03-03] MEDS ORDERED: HYDR50TA70 (20:40)
[2023-03-04] MEDS ORDERED: BACT800T5 PO (00:33)
[2023-03-04] MEDS ORDERED: BACTRIM 160MG/800MG DS TAB PO ONE (01:00)
[2023-03-04 01:13] VITALS: BP 124/67; TEMP 97; O2SAT 96
[2023-03-04 01:32] LABS: BASO % 0.2 % (0.0-1.0); EOS # 0.2 10^3/uL (0.0-0.5); HEMATOCRIT 39.2 % (36.0-47.0); HEMOGLOBIN 12.8 g/dl (12.0-15.5); MEAN CORPUSCULAR HEMOGLOBIN 28.3 pg (27.0-33.0); MEAN CORPUSCULAR HGB CONC 32.7 g/dl (32.0-36.5); MEAN CORPUSCULAR VOLUME 86.7 fl (80.0-96.0); MONO # 0.8 10^3/uL (0.0-0.8); MONO % 6.3 % (2.0-8.0); PLATELET COUNT, AUTOMATED 341 10^3/uL (150-450); RED BLOOD COUNT 4.52 10^6/uL (4.00-5.40); WHITE BLOOD COUNT 12.1 10^3/uL (4.0-10.0)
[2023-03-04 02:08] LABS: BLOOD UREA NITROGEN 13 MG/DL (9-23); CALCIUM LEVEL 8.6 MG/DL (8.5-10.1); CARBON DIOXIDE LEVEL 26 MMOL/L (20-31); CHLORIDE LEVEL 108 MMOL/L (98-107); CREATININE FOR GFR 0.45 MG/DL (0.55-1.30); GLOMERULAR FILTRATION RATE > 60.0 (>60); GLUCOSE, FASTING 96 MG/DL (60-100); MAGNESIUM LEVEL 1.8 MG/DL (1.8-2.4); POTASSIUM SERUM 4.3 MMOL/L (3.5-5.1); SODIUM LEVEL 138 MMOL/L (136-145)
== END 2023-03-04 01:40 | disposition home or self-care (01) ==
LOC: M ED 20:24
DX: N10 Acute pyelonephritis (principal); K80.20 Calculus of gallbladder without cholecystitis without obstruction; I10 Essential (primary) hypertension; F43.10 Post-traumatic stress disorder, unspecified; F32.A Depression, unspecified; Z79.82 Long term (current) use of aspirin; Z79.899 Other long term (current) drug therapy; Z88.8 Allergy status to other drugs, medicaments and biological substances

== ENCOUNTER → 2023-03-06 | Outpatient (REF) | payer OTHER ==
[~2023-03-06] MED LIST changes: +BACT800T5 PO; +HYDR50TA70
[2023-03-06 13:06] LABS: ALBUMIN 3.2 G/DL (3.2-5.2); ALKALINE PHOSPHATASE 101 U/L (46-116); ALT/SGPT 32 U/L (7.0-40); AST/SGOT 19 U/L (<34); BILIRUBIN,TOTAL 0.4 MG/DL (0.3-1.2); BLOOD UREA NITROGEN 15 MG/DL (9-23); CALCIUM LEVEL 8.6 MG/DL (8.5-10.1); CARBON DIOXIDE LEVEL 28 MMOL/L (20-31); CHLORIDE LEVEL 105 MMOL/L (98-107); CHOLESTEROL LEVEL 211 MG/DL (<200); CHOLESTEROL RISK RATIO 3.72 (<5); CREATININE FOR GFR 0.66 MG/DL (0.55-1.30); GLOMERULAR FILTRATION RATE > 60.0 (>60); GLUCOSE, FASTING 90 MG/DL (60-100); HDL CHOLESTEROL 56.7 MG/DL (>40); LDL CHOLESTEROL 136.5 MG/DL (<100); NON-HDL-C 154.3 MG/DL; POTASSIUM SERUM 4.4 MMOL/L (3.5-5.1); SODIUM LEVEL 139 MMOL/L (136-145); TOTAL PROTEIN 6.8 G/DL (5.7-8.2); TRIGLYCERIDES LEVEL 89 MG/DL (<150)
[2023-03-06 13:07] LABS: THYROID STIMULATING HORMONE 2.301 uIU/ML (0.55-4.78)
== END ==
LOC: M LAB REF 11:50
PROVIDERS: ATTEND Family Medicine Addiction Medicine
DX: E78.5 Hyperlipidemia, unspecified (principal)

== ENCOUNTER 2023-04-16 23:33 | Emergency (ER) | payer OTHER ==
[~2023-04-16] VITALS: Ht 167.6 cm; Wt 129.1 kg
[2023-04-16 23:58] VITALS: TEMP 99.1
[2023-04-17 00:42] LABS: BASO % 0.3 % (0.0-1.0); EOS # 0.4 10^3/uL (0.0-0.5); EOS % 2.9 % (0.0-3.0); HEMOGLOBIN 12.5 g/dl (12.0-15.5); LYMPH % 22.8 % (24.0-44.0); MEAN CORPUSCULAR HGB CONC 32.1 g/dl (32.0-36.5); MEAN CORPUSCULAR VOLUME 87.4 fl (80.0-96.0); MONO # 0.8 10^3/uL (0.0-0.8); NEUTROPHILS % 67.6 % (36.0-66.0); PLATELET COUNT, AUTOMATED 326 10^3/uL (150-450); RED BLOOD COUNT 4.46 10^6/uL (4.00-5.40); WHITE BLOOD COUNT 13.3 10^3/uL (4.0-10.0)
[2023-04-17] MEDS ORDERED: MORPHINE 4 MG/ML 1ML VIAL IV PRN (00:50)
[2023-04-17] MEDS ORDERED: ONDANSETRON 4MG 2ML VIAL IV ONE (00:50)
[2023-04-17] MEDS ORDERED: ISOVUE-370 76% 100ML VIAL As Ordered ONE (01:05)
[2023-04-17 01:06] LABS: BLOOD UREA NITROGEN 12 MG/DL (9-23); CALCIUM LEVEL 8.2 MG/DL (8.5-10.1); CARBON DIOXIDE LEVEL 25 MMOL/L (20-31); CHLORIDE LEVEL 104 MMOL/L (98-107); CREATININE FOR GFR 0.53 MG/DL (0.55-1.30); GLOMERULAR FILTRATION RATE > 60.0 (>60); GLUCOSE, FASTING 103 MG/DL (60-100); POTASSIUM SERUM 4.2 MMOL/L (3.5-5.1); SODIUM LEVEL 136 MMOL/L (136-145)
[2023-04-17 01:34] VITALS: BP 113/51
[2023-04-17 01:48] VITALS: O2SAT 99
== END 2023-04-17 03:49 | disposition home or self-care (01) ==
LOC: M ED 23:33
DX: S80.12XA Contusion of left lower leg, initial encounter (principal); S20.222A Contusion of left back wall of thorax, initial encounter; Y92.410 Unspecified street and highway as the place of occurrence of the external cause; Y93.89 Activity, other specified; Z88.8 Allergy status to other drugs, medicaments and biological substances
CPT/HCPCS: 73564; 73706; 74177; 80048; 84702; 85025; 86850; 86900; 86901; 96374; 99291; J2405; Q9967

== ENCOUNTER 2023-04-19 11:55 | Emergency (ER) | payer OTHER ==
[~2023-04-19] VITALS: Ht 167.6 cm; Wt 127.6 kg
[2023-04-19] MEDS ORDERED: NORCO, ANEXSIA 5/325MG TABLET (HYDROcodone/ACETAMINOPHEN) PO ONE (14:50)
[2023-04-19] MEDS ORDERED: ONDANSETRON 4MG ORAL DISINTEGRATING TAB PO ONE (14:50)
[2023-04-19] MEDS ORDERED: HYDR-3713 PO (15:35)
[2023-04-19 16:11] VITALS: BP 133/72; TEMP 98.2; O2SAT 100
== END 2023-04-19 16:11 | disposition home or self-care (01) ==
LOC: M ED 11:55
DX: S52.124A Nondisplaced fracture of head of right radius, initial encounter for closed fracture (principal); W01.0XXA Fall on same level from slipping, tripping and stumbling without subsequent striking against object, initial encounter; Y92.9 Unspecified place or not applicable; Z88.8 Allergy status to other drugs, medicaments and biological substances; Z79.1 Long term (current) use of non-steroidal anti-inflammatories (NSAID); Z79.899 Other long term (current) drug therapy; Z79.51 Long term (current) use of inhaled steroids

== ENCOUNTER → 2023-05-13 | Outpatient (CLI) | payer OTHER | LOC: M SOG 08:11 | PROVIDERS: ATTEND Physician Assistant | DX: S52.121A Displaced fracture of head of right radius, initial encounter for closed fracture (principal); W18.30XA Fall on same level, unspecified, initial encounter; Y92.009 Unspecified place in unspecified non-institutional (private) residence as the place of occurrence of the external cause ==

== ENCOUNTER 2023-05-29 10:18 | Emergency (ER) | payer OTHER, SELFPAY ==
[~2023-05-29] VITALS: Ht 167.6 cm; Wt 113.6 kg
[2023-05-29] MEDS ORDERED: traMADol 50 MG TAB PO ONE (14:45)
[2023-05-29] MEDS ORDERED: TRAM50TA2 PO (15:16)
[2023-05-29 15:17] VITALS: BP 168/92; TEMP 97.5; O2SAT 100
== END 2023-05-29 15:25 | disposition home or self-care (01) ==
LOC: M ED 10:18
DX: M75.31 Calcific tendinitis of right shoulder (principal); J00 Acute nasopharyngitis [common cold]; S52.124A Nondisplaced fracture of head of right radius, initial encounter for closed fracture; I10 Essential (primary) hypertension; Y92.009 Unspecified place in unspecified non-institutional (private) residence as the place of occurrence of the external cause; Y93.9 Activity, unspecified; Y99.8 Other external cause status; X58.XXXA Exposure to other specified factors, initial encounter

== ENCOUNTER → 2023-05-30 | Outpatient (CLI) | payer OTHER ==
[~2023-05-30] MED LIST changes: +TRAM50TA2 PO
== END ==
LOC: M SOG 11:42
PROVIDERS: ATTEND Physician Assistant
DX: S52.121A Displaced fracture of head of right radius, initial encounter for closed fracture (principal); W18.30XA Fall on same level, unspecified, initial encounter; Y92.009 Unspecified place in unspecified non-institutional (private) residence as the place of occurrence of the external cause

== ENCOUNTER → 2023-06-10 | Outpatient (CLI) | payer OTHER | LOC: M SOG 09:21 | PROVIDERS: ATTEND Physician Assistant | DX: M25.562 Pain in left knee (principal) ==

== ENCOUNTER → 2023-06-12 | Outpatient (CLI) | payer OTHER | LOC: M SOG 10:07 | PROVIDERS: ATTEND Physician Assistant | DX: S52.121D Displaced fracture of head of right radius, subsequent encounter for closed fracture with routine healing (principal); M25.421 Effusion, right elbow ==

== ENCOUNTER → 2023-06-27 | Outpatient (REF) | payer OTHER | LOC: M LAB REF 16:17 | PROVIDERS: ATTEND Physician Assistant | DX: N30.01 Acute cystitis with hematuria (principal) ==

== ENCOUNTER → 2023-07-01 | Outpatient (CLI) | payer OTHER ==
[~2023-07-01] MED LIST changes: +AMOX500C PO; -ASPI-161 PO; +ASPI-615 PO
== END ==
LOC: M SLEEP 20:00
PROVIDERS: ATTEND Physician Assistant
DX: G47.33 Obstructive sleep apnea (adult) (pediatric) (principal)

== ENCOUNTER → 2023-07-11 | Outpatient (REF) ==
[~2023-07-11] MED LIST changes: -AMOX500C PO
== END ==
LOC: M PLAIMG 11:21
PROVIDERS: ATTEND Internal Medicine
DX: R52 Pain, unspecified (principal)

== ENCOUNTER 2023-07-22 17:47 | Emergency (ER) | payer OTHER ==
[~2023-07-22] VITALS: Ht 167.6 cm; Wt 129.1 kg
[2023-07-22] MEDS: cefTRIAXone SOD 2 GM in D5W MINI-BAG PLUS 50 ML IV ONE (23:28)
[2023-07-22] MEDS: NS 1,000 ML IV ONE (23:28)
[2023-07-22] MEDS: KETOROLAC 30 MG/ML 1ML VIAL IV ONE (23:29)
[2023-07-22] MEDS: ONDANSETRON 4MG 2ML VIAL IV ONE (23:45)
[2023-07-22] MEDS ORDERED: ONDANSETRON 4MG 2ML VIAL As Ordered ONE (23:46)
[2023-07-23] MEDS ORDERED: AMOX500C PO (01:01)
[2023-07-23 01:30] VITALS: BP 139/81; TEMP 98.2; O2SAT 98
== END 2023-07-23 01:33 | disposition home or self-care (01) ==
LOC: M ED 17:47
DX: G43.909 Migraine, unspecified, not intractable, without status migrainosus (principal); H66.91 Otitis media, unspecified, right ear; I10 Essential (primary) hypertension; Z88.8 Allergy status to other drugs, medicaments and biological substances; Z79.51 Long term (current) use of inhaled steroids; Z79.899 Other long term (current) drug therapy; Z79.2 Long term (current) use of antibiotics
CPT/HCPCS: 96365; 96366; 96375; 99284; J0696; J1885; J2405

== ENCOUNTER → 2023-08-05 | Outpatient (REF) | payer OTHER ==
[~2023-08-05] MED LIST changes: +AMOX500C PO; +LABE100T40 PO; -LABE100T71 PO
== END ==
LOC: M LAB REF 21:26
PROVIDERS: ATTEND Physician Assistant Medical
DX: B34.9 Viral infection, unspecified (principal)

== ENCOUNTER → 2023-08-07 | Outpatient (CLI) | payer OTHER | LOC: M SOG 07:58 | PROVIDERS: ATTEND Physician Assistant | DX: S52.121A Displaced fracture of head of right radius, initial encounter for closed fracture (principal); W18.30XA Fall on same level, unspecified, initial encounter; Y92.009 Unspecified place in unspecified non-institutional (private) residence as the place of occurrence of the external cause ==

== ENCOUNTER → 2023-08-19 | Outpatient (CLI) | payer OTHER | LOC: M SOG 07:53 | PROVIDERS: ATTEND Physician Assistant | DX: S52.121A Displaced fracture of head of right radius, initial encounter for closed fracture (principal); W18.30XA Fall on same level, unspecified, initial encounter; Y92.009 Unspecified place in unspecified non-institutional (private) residence as the place of occurrence of the external cause ==

== ENCOUNTER 2023-10-23 20:33 | Emergency (ER) | payer OTHER ==
[~2023-10-23] VITALS: Ht 167.6 cm; Wt 132.9 kg
[~2023-10-23 20:33] MED LIST changes: +ONDA-282 PO; -ONDA4TAB6 PO
[2023-10-23 20:34] VITALS: TEMP 98.5
[2023-10-23 21:19] LABS: BASO % 0.2 % (0.0-1.0); EOS # 0.4 10^3/uL (0.0-0.5); EOS % 3.2 % (0.0-3.0); HEMATOCRIT 41.8 % (36.0-47.0); HEMOGLOBIN 13.6 g/dl (12.0-15.5); LYMPH % 15.1 % (24.0-44.0); MEAN CORPUSCULAR HEMOGLOBIN 28.4 pg (27.0-33.0); MEAN CORPUSCULAR HGB CONC 32.5 g/dl (32.0-36.5); MEAN CORPUSCULAR VOLUME 87.3 fl (80.0-96.0); MONO # 0.8 10^3/uL (0.0-0.8); NEUTROPHILS % 75.1 % (36.0-66.0); PLATELET COUNT, AUTOMATED 289 10^3/uL (150-450); RED BLOOD COUNT 4.79 10^6/uL (4.00-5.40); WHITE BLOOD COUNT 13.3 10^3/uL (4.0-10.0)
[2023-10-23 21:31] LABS: LIPASE 23 U/L (12-53)
[2023-10-23 21:32] LABS: CK-MB VALUE MASS < 1.0 NG/ML (<3.6)
[2023-10-23 21:33] LABS: ALBUMIN 3.1 G/DL (3.2-5.2); ALKALINE PHOSPHATASE 106 U/L (46-116); ALT/SGPT 36 U/L (7.0-40); AST/SGOT 23 U/L (<34); BILIRUBIN,DIRECT 0.1 MG/DL (<0.4); BILIRUBIN,TOTAL 0.4 MG/DL (0.3-1.2); BLOOD UREA NITROGEN 9 MG/DL (9-23); CALCIUM LEVEL 8.5 MG/DL (8.5-10.1); CARBON DIOXIDE LEVEL 22 MMOL/L (20-31); CHLORIDE LEVEL 106 MMOL/L (98-107); CREATININE FOR GFR 0.51 MG/DL (0.55-1.30); GLOMERULAR FILTRATION RATE > 60.0 (>60); GLUCOSE, FASTING 104 MG/DL (60-100); POTASSIUM SERUM 4.6 MMOL/L (3.5-5.1); SODIUM LEVEL 137 MMOL/L (136-145); TOTAL PROTEIN 6.9 G/DL (5.7-8.2)
[2023-10-23 21:35] LABS: CPK CREATINE PHOSPHOKINASE 43 U/L (34-145); MB/CK RELATIVE INDEX 2.32 (< OR =4)
[2023-10-23] MEDS: NS 1,000 ML IV ONE (21:37)
[2023-10-23 21:38] VITALS: BP 134/78; O2SAT 100
[2023-10-23] MEDS: MORPHINE 4 MG/ML 1ML VIAL IV ONE (21:38)
[2023-10-23] MEDS: ONDANSETRON 4MG 2ML VIAL IV ONE (21:39)
[2023-10-23 21:58] LABS: HCG, SERUM QUALITATIVE NEGATIVE (NEGATIVE)
[2023-10-23] MEDS ORDERED: ISOVUE-370 76% 100ML VIAL As Ordered ONE (22:27)
== END 2023-10-24 | disposition home or self-care (01) ==
LOC: M ED 20:33
DX: R10.9 Unspecified abdominal pain (principal); R19.7 Diarrhea, unspecified; I45.19 Other right bundle-branch block; I10 Essential (primary) hypertension; Z88.8 Allergy status to other drugs, medicaments and biological substances; Z79.51 Long term (current) use of inhaled steroids; Z79.1 Long term (current) use of non-steroidal anti-inflammatories (NSAID); Z79.899 Other long term (current) drug therapy; Z79.2 Long term (current) use of antibiotics
CPT/HCPCS: 71045; 74177; 80048; 80076; 82550; 82553; 83690; 84484; 84703; 85025; 93005; 96361; 96374; 96375; 99284; J2405; Q9967

== ENCOUNTER → 2023-10-24 | Outpatient (REF) | payer OTHER ==
[~2023-10-24] MED LIST changes: -ONDA-282 PO; +ONDA4TAB6 PO
== END ==
LOC: M LAB REF 12:09
PROVIDERS: ATTEND Physician Assistant Medical
DX: R19.7 Diarrhea, unspecified (principal)

== ENCOUNTER 2023-11-03 16:07 | Emergency (ER) | payer OTHER ==
[~2023-11-03] VITALS: Ht 167.6 cm; Wt 135.4 kg
[~2023-11-03 16:07] MED LIST changes: +ONDA-282 PO; -ONDA4TAB6 PO
[2023-11-03] MEDS ORDERED: MIRT-89 PO (16:15)
[2023-11-03] MEDS ORDERED: VERA120T9 PO (16:15)
[2023-11-03 16:46] LABS: APPEARANCE, URINE HAZY (CLEAR); BACTERIA, URINE AUTO NEGATIVE (NEGATIVE); BILIRUBIN, URINE AUTO NEGATIVE (NEGATIVE); BLOOD, URINE BLOOD NEGATIVE (NEGATIVE); COLOR, URINE YELLOW (YELLOW); GLUCOSE, URINE (UA) AUTO NEGATIVE (NEGATIVE); KETONE, URINE AUTO NEGATIVE (NEGATIVE); LEUKOCYTE ESTERASE, URINE AUTO TRACE (NEGATIVE); MUCUS, URINE SMALL (NEGATIVE); NITRITE, URINE AUTO NEGATIVE (NEGATIVE); PROTEIN, URINE AUTO 2+ mg/dL (NEGATIVE); RBC, URINE AUTO 2 /HPF (0-3); SPECIFIC GRAVITY URINE AUTO 1.021 (1.002-1.035); SQUAMOUS EPITHELIAL CELL UR AU 5 /HPF (0-6); UROBILINOGEN, URINE AUTO 0.2 mg/dL (0.0-2.0); WBC, URINE AUTO 2 /HPF (0-3)
[2023-11-03] MEDS: NS 1,000 ML IV ONE (17:52)
[2023-11-03] MEDS: KETOROLAC 30 MG/ML 1ML VIAL IV ONE (17:53)
[2023-11-03 18:05] LABS: BASO # 0.1 10^3/uL (0.0-0.2); BASO % 0.4 % (0.0-1.0); EOS # 0.4 10^3/uL (0.0-0.5); EOS % 3.6 % (0.0-3.0); HEMATOCRIT 40.4 % (36.0-47.0); HEMOGLOBIN 13.3 g/dl (12.0-15.5); LYMPH # 2.9 10^3/uL (1.5-5.0); LYMPH % 25.1 % (24.0-44.0); MEAN CORPUSCULAR HGB CONC 32.9 g/dl (32.0-36.5); MONO # 0.8 10^3/uL (0.0-0.8); MONO % 6.6 % (2.0-8.0); NEUTROPHILS # 7.4 10^3/uL (1.5-8.5); NEUTROPHILS % 63.8 % (36.0-66.0); PLATELET COUNT, AUTOMATED 322 10^3/uL (150-450); RED BLOOD COUNT 4.59 10^6/uL (4.00-5.40); WHITE BLOOD COUNT 11.5 10^3/uL (4.0-10.0)
[2023-11-03 18:28] LABS: LIPASE 24 U/L (12-53)
[2023-11-03 18:30] LABS: ALBUMIN 2.9 G/DL (3.2-5.2); ALKALINE PHOSPHATASE 103 U/L (46-116); ALT/SGPT 26 U/L (7.0-40); AST/SGOT 15 U/L (<34); BILIRUBIN,DIRECT < 0.1 MG/DL (<0.4); BILIRUBIN,TOTAL < 0.2 MG/DL (0.3-1.2); BLOOD UREA NITROGEN 10 MG/DL (9-23); CALCIUM LEVEL 8.7 MG/DL (8.5-10.1); CARBON DIOXIDE LEVEL 28 MMOL/L (20-31); CHLORIDE LEVEL 108 MMOL/L (98-107); CREATININE FOR GFR 0.61 MG/DL (0.55-1.30); GLOMERULAR FILTRATION RATE > 60.0 (>60); GLUCOSE, FASTING 99 MG/DL (60-100); POTASSIUM SERUM 4.6 MMOL/L (3.5-5.1); SODIUM LEVEL 141 MMOL/L (136-145); TOTAL PROTEIN 6.6 G/DL (5.7-8.2)
[2023-11-03] MEDS ORDERED: ISOVUE-370 76% 100ML VIAL As Ordered ONE (18:32)
[2023-11-03] MEDS ORDERED: IBUP-1022 PO (19:38)
[2023-11-03 19:55] VITALS: BP 123/68; TEMP 96.5; O2SAT 100
== END 2023-11-03 19:58 | disposition home or self-care (01) ==
LOC: M ED 16:07
DX: K80.80 Other cholelithiasis without obstruction (principal); R10.9 Unspecified abdominal pain; K43.9 Ventral hernia without obstruction or gangrene; R16.0 Hepatomegaly, not elsewhere classified; G43.909 Migraine, unspecified, not intractable, without status migrainosus; F17.210 Nicotine dependence, cigarettes, uncomplicated; Z88.8 Allergy status to other drugs, medicaments and biological substances; Z79.51 Long term (current) use of inhaled steroids; Z79.1 Long term (current) use of non-steroidal anti-inflammatories (NSAID); Z79.899 Other long term (current) drug therapy
CPT/HCPCS: 74177; 80048; 80076; 81001; 83690; 85025; 87086; 96361; 96374; 99284; J1885; Q9967

== ENCOUNTER → 2023-11-05 | Outpatient (CLI) | payer OTHER ==
[~2023-11-05] MED LIST changes: +IBUP-1022 PO; +MIRT-89 PO; +VERA120T9 PO
[2023-11-05 17:21] LABS: ALKALINE PHOSPHATASE 105 U/L (46-116); ALT/SGPT 27 U/L (7.0-40); AST/SGOT 21 U/L (<34); BILIRUBIN,TOTAL 0.2 MG/DL (0.3-1.2); BLOOD UREA NITROGEN 10 MG/DL (9-23); CALCIUM LEVEL 8.9 MG/DL (8.5-10.1); CARBON DIOXIDE LEVEL 25 MMOL/L (20-31); CHLORIDE LEVEL 105 MMOL/L (98-107); CREATININE FOR GFR 0.53 MG/DL (0.55-1.30); GLOMERULAR FILTRATION RATE > 60.0 (>60); GLUCOSE, FASTING 111 MG/DL (60-100); POTASSIUM SERUM 4.6 MMOL/L (3.5-5.1); SODIUM LEVEL 137 MMOL/L (136-145); TOTAL PROTEIN 6.8 G/DL (5.7-8.2)
[2023-11-05 17:56] LABS: HEPATITIS B CORE ANTIBODY IGM NEGATIVE (NEGATIVE)
[2023-11-05 17:57] LABS: HEPATITIS C VIRUS ABY INDEX 0.13 INDEX (<0.8)
== END ==
LOC: M LAB 16:20
PROVIDERS: ATTEND Family Medicine Addiction Medicine
DX: R16.0 Hepatomegaly, not elsewhere classified (principal)

== ENCOUNTER → 2023-11-06 | Outpatient (REF) | payer OTHER ==
[2023-11-06 16:52] LABS: APPEARANCE, URINE HAZY (CLEAR); BACTERIA, URINE AUTO NEGATIVE (NEGATIVE); BILIRUBIN, URINE AUTO NEGATIVE (NEGATIVE); BLOOD, URINE BLOOD 1+ (NEGATIVE); COLOR, URINE YELLOW (YELLOW); GLUCOSE, URINE (UA) AUTO NEGATIVE (NEGATIVE); KETONE, URINE AUTO NEGATIVE (NEGATIVE); LEUKOCYTE ESTERASE, URINE AUTO TRACE (NEGATIVE); MUCUS, URINE SMALL (NEGATIVE); NITRITE, URINE AUTO NEGATIVE (NEGATIVE); PROTEIN, URINE AUTO 2+ mg/dL (NEGATIVE); RBC, URINE AUTO 5 /HPF (0-3); SPECIFIC GRAVITY URINE AUTO 1.023 (1.002-1.035); SQUAMOUS EPITHELIAL CELL UR AU 1 /HPF (0-6); UROBILINOGEN, URINE AUTO 0.2 mg/dL (0.0-2.0); WBC, URINE AUTO 2 /HPF (0-3)
== END ==
LOC: M LAB REF 16:07
PROVIDERS: ATTEND Family Medicine Addiction Medicine
DX: R31.0 Gross hematuria (principal)

== ENCOUNTER 2024-01-12 20:39 | Emergency (ER) | payer OTHER ==
[~2024-01-12] VITALS: Ht 167.6 cm; Wt 136.4 kg
[2024-01-12 22:17] LABS: BASO % 0.3 % (0.0-1.0); EOS # 0.2 10^3/uL (0.0-0.5); EOS % 1.2 % (0.0-3.0); HEMATOCRIT 40.7 % (36.0-47.0); HEMOGLOBIN 13.5 g/dl (12.0-15.5); LYMPH % 6.8 % (24.0-44.0); MEAN CORPUSCULAR HEMOGLOBIN 28.8 pg (27.0-33.0); MEAN CORPUSCULAR HGB CONC 33.2 g/dl (32.0-36.5); MEAN CORPUSCULAR VOLUME 86.8 fl (80.0-96.0); MONO % 7.1 % (2.0-8.0); NEUTROPHILS # 11.7 10^3/uL (1.5-8.5); NEUTROPHILS % 84.2 % (36.0-66.0); PLATELET COUNT, AUTOMATED 284 10^3/uL (150-450); RED BLOOD COUNT 4.69 10^6/uL (4.00-5.40); WHITE BLOOD COUNT 13.9 10^3/uL (4.0-10.0)
[2024-01-12 22:52] LABS: LIPASE 24 U/L (12-53)
[2024-01-12 22:54] LABS: ALBUMIN 3.1 G/DL (3.2-5.2); ALKALINE PHOSPHATASE 109 U/L (46-116); ALT/SGPT 57 U/L (7.0-40); AST/SGOT 23 U/L (<34); BILIRUBIN,DIRECT 0.1 MG/DL (<0.4); BILIRUBIN,TOTAL 0.4 MG/DL (0.3-1.2); BLOOD UREA NITROGEN 9 MG/DL (9-23); CALCIUM LEVEL 8.3 MG/DL (8.5-10.1); CARBON DIOXIDE LEVEL 27 MMOL/L (20-31); CHLORIDE LEVEL 103 MMOL/L (98-107); CREATININE FOR GFR 0.64 MG/DL (0.55-1.30); GLOMERULAR FILTRATION RATE > 60.0 (>60); GLUCOSE, FASTING 123 MG/DL (60-100); POTASSIUM SERUM 3.8 MMOL/L (3.5-5.1); SODIUM LEVEL 135 MMOL/L (136-145); TOTAL PROTEIN 7.3 G/DL (5.7-8.2)
[2024-01-13] MEDS: NS 1,000 ML IV ONE (00:05)
[2024-01-13] MEDS: KETOROLAC 30 MG/ML 1ML VIAL IV ONE (00:05)
[2024-01-13] MEDS: ONDANSETRON 4MG 2ML VIAL IV ONE (00:05)
[2024-01-13] MEDS ORDERED: ISOVUE-370 76% 100ML VIAL As Ordered ONE (00:53)
[2024-01-13] MEDS: cefTRIAXone SOD 1 GM in D5W MINI-BAG PLUS 50 ML IV ONE (00:58)
[2024-01-13 01:55] LABS: APPEARANCE, URINE HAZY (CLEAR); BACTERIA, URINE AUTO NEGATIVE (NEGATIVE); BILIRUBIN, URINE AUTO NEGATIVE (NEGATIVE); BLOOD, URINE BLOOD 1+ (NEGATIVE); COLOR, URINE YELLOW (YELLOW); GLUCOSE, URINE (UA) AUTO NEGATIVE (NEGATIVE); KETONE, URINE AUTO NEGATIVE (NEGATIVE); LEUKOCYTE ESTERASE, URINE AUTO TRACE (NEGATIVE); MUCUS, URINE LARGE (NEGATIVE); NITRITE, URINE AUTO NEGATIVE (NEGATIVE); PROTEIN, URINE AUTO 2+ mg/dL (NEGATIVE); RBC, URINE AUTO 24 /HPF (0-3); SQUAMOUS EPITHELIAL CELL UR AU 13 /HPF (0-6); WBC, URINE AUTO 1 /HPF (0-3)
[2024-01-13] MEDS: DOXYCYCLINE HYCLATE 100MG TABLET PO ONE (01:59)
[2024-01-13] MEDS ORDERED: DOXY-440 PO (02:00)
[2024-01-13] MEDS ORDERED: CEFD1CAP9 PO (02:00)
[2024-01-13 02:09] VITALS: BP 119/64; TEMP 98.9; O2SAT 99
== END 2024-01-13 02:12 | disposition home or self-care (01) ==
LOC: M ED 20:39
DX: J18.9 Pneumonia, unspecified organism (principal); Z88.8 Allergy status to other drugs, medicaments and biological substances; Z79.51 Long term (current) use of inhaled steroids; Z79.1 Long term (current) use of non-steroidal anti-inflammatories (NSAID); Z79.2 Long term (current) use of antibiotics; Z79.899 Other long term (current) drug therapy
CPT/HCPCS: 74021; 74177; 80048; 80076; 81001; 83605; 83690; 85025; 87040; 87086; 87486; 87581; 87633; 87798; 96365; 96374; 99284; J0696; J1885; J2405; Q9967

== ENCOUNTER 2024-03-11 18:28 | Emergency (ER) | payer OTHER ==
[~2024-03-11] VITALS: Ht 167.6 cm; Wt 137.3 kg
[~2024-03-11 18:28] MED LIST changes: +CEFD1CAP9 PO; +DOXY-440 PO
[2024-03-11 18:32] VITALS: TEMP 97.7
[2024-03-11] MEDS: ACETAMINOPHEN *IV* 1,000 MG in IV 1 EA IV ONE (22:22)
[2024-03-11] MEDS: KETOROLAC 30 MG/ML 1ML VIAL IV ONE (22:33)
[2024-03-11] MEDS: NS 1,000 ML IV ONE (22:35)
[2024-03-11] MEDS: MAG SULF 1GM/100ML (MAG RUN) 1 GM in IV 1 EA IV ONE (22:35)
[2024-03-12 00:50] VITALS: BP 137/74; O2SAT 95
== END 2024-03-12 01:30 | disposition home or self-care (01) ==
LOC: M ED 18:28
DX: G43.909 Migraine, unspecified, not intractable, without status migrainosus (principal); K08.89 Other specified disorders of teeth and supporting structures; F41.9 Anxiety disorder, unspecified; F32.A Depression, unspecified; F43.10 Post-traumatic stress disorder, unspecified; Z88.8 Allergy status to other drugs, medicaments and biological substances; Z79.51 Long term (current) use of inhaled steroids; Z79.1 Long term (current) use of non-steroidal anti-inflammatories (NSAID); Z79.2 Long term (current) use of antibiotics; Z79.899 Other long term (current) drug therapy
CPT/HCPCS: 70486; 96365; 96366; 96374; 96375; 99284; J0131; J1100; J1885; J3475

== ENCOUNTER → 2024-03-31 | Outpatient (REF) | payer OTHER | LOC: M LAB REF 16:36 | PROVIDERS: ATTEND Physician Assistant | DX: J02.9 Acute pharyngitis, unspecified (principal) ==

== ENCOUNTER → 2024-04-02 | Outpatient (REF) | payer OTHER | LOC: M LAB REF 16:06 | PROVIDERS: ATTEND Physician Assistant | DX: R05.9 Cough, unspecified (principal) ==

== ENCOUNTER → 2024-06-02 | Outpatient (CLI) | payer OTHER ==
[~2024-06-02] MED LIST changes: +ACET50CA PO; +ADDE10TA PO; -ALBU8.5H; +ALBU8.5H INH; -ALPR0.5T3; +CAFF200T PO; +DEPA1TAB3 PO; +LAMO25TA4 PO; +MIRT-88 PO; -PRAZ1CAP; +PRAZ1CAP PO; +PRAZ2CAP PO; +VERA120C3 PO
[2024-06-02 16:17] LABS: BASO % 0.3 % (0.0-1.0); EOS # 0.2 10^3/uL (0.0-0.5); EOS % 2.2 % (0.0-3.0); HEMATOCRIT 39.3 % (36.0-47.0); HEMOGLOBIN 13.1 g/dl (12.0-15.5); LYMPH # 2.3 10^3/uL (1.5-5.0); LYMPH % 23.5 % (24.0-44.0); MEAN CORPUSCULAR HEMOGLOBIN 28.7 pg (27.0-33.0); MEAN CORPUSCULAR HGB CONC 33.3 g/dl (32.0-36.5); MONO # 0.6 10^3/uL (0.0-0.8); MONO % 5.9 % (2.0-8.0); NEUTROPHILS # 6.5 10^3/uL (1.5-8.5); NEUTROPHILS % 67.7 % (36.0-66.0); PLATELET COUNT, AUTOMATED 320 10^3/uL (150-450); RED BLOOD COUNT 4.57 10^6/uL (4.00-5.40); WHITE BLOOD COUNT 9.7 10^3/uL (4.0-10.0)
[2024-06-02 16:31] LABS: INR 1.03; PARTIAL THROMBOPLASTIN TIME 27.4 SECONDS (24.8-34.2); PROTHROMBIN TIME 13.8 SECONDS (12.5-14.5)
[2024-06-02 16:49] LABS: BLOOD UREA NITROGEN 13 MG/DL (9-23); CALCIUM LEVEL 8.9 MG/DL (8.5-10.1); CARBON DIOXIDE LEVEL 22 MMOL/L (20-31); CHLORIDE LEVEL 107 MMOL/L (98-107); CREATININE FOR GFR 0.61 MG/DL (0.55-1.30); GLOMERULAR FILTRATION RATE > 60.0 (>60); GLUCOSE, FASTING 99 MG/DL (60-100); POTASSIUM SERUM 3.7 MMOL/L (3.5-5.1); SODIUM LEVEL 140 MMOL/L (136-145)
[2024-06-02 17:02] LABS: HCG, SERUM QUALITATIVE NEGATIVE (NEGATIVE)
== END ==
LOC: M LAB 15:14
PROVIDERS: ATTEND Neurological Surgery
DX: G93.2 Benign intracranial hypertension (principal)

== ENCOUNTER 2024-06-23 10:39 | Emergency (ER) | payer OTHER ==
[~2024-06-23] VITALS: Ht 167.6 cm; Wt 135.4 kg
[2024-06-23 12:13] LABS: LIPASE 21 U/L (12-53)
[2024-06-23 12:15] LABS: BASO % 0.2 % (0.0-1.0); EOS # 0.3 10^3/uL (0.0-0.5); EOS % 2.7 % (0.0-3.0); HEMATOCRIT 43.4 % (36.0-47.0); HEMOGLOBIN 14.2 g/dl (12.0-15.5); LYMPH # 1.4 10^3/uL (1.5-5.0); LYMPH % 15.6 % (24.0-44.0); MEAN CORPUSCULAR HEMOGLOBIN 28.3 pg (27.0-33.0); MEAN CORPUSCULAR HGB CONC 32.7 g/dl (32.0-36.5); MEAN CORPUSCULAR VOLUME 86.6 fl (80.0-96.0); MONO # 0.5 10^3/uL (0.0-0.8); MONO % 5.2 % (2.0-8.0); PLATELET COUNT, AUTOMATED 334 10^3/uL (150-450); RED BLOOD COUNT 5.01 10^6/uL (4.00-5.40); WHITE BLOOD COUNT 9.3 10^3/uL (4.0-10.0)
[2024-06-23 12:16] LABS: ALBUMIN 3.1 G/DL (3.2-5.2); ALKALINE PHOSPHATASE 120 U/L (35-104); ALT/SGPT 32 U/L (7.0-40); AST/SGOT 31 U/L (<34); BILIRUBIN,DIRECT 0.1 MG/DL (<0.4); BILIRUBIN,TOTAL 0.6 MG/DL (0.3-1.2); BLOOD UREA NITROGEN 9 MG/DL (9-23); CALCIUM LEVEL 8.3 MG/DL (8.5-10.1); CARBON DIOXIDE LEVEL 26 MMOL/L (20-31); CHLORIDE LEVEL 105 MMOL/L (98-107); CREATININE FOR GFR 0.48 MG/DL (0.55-1.30); GLOMERULAR FILTRATION RATE > 60.0 (>60); GLUCOSE, FASTING 103 MG/DL (60-100); POTASSIUM SERUM 4.2 MMOL/L (3.5-5.1); SODIUM LEVEL 141 MMOL/L (136-145); TOTAL PROTEIN 7.1 G/DL (5.7-8.2)
[2024-06-23] MEDS: ONDANSETRON 4MG ORAL DISINTEGRATING TAB PO ONE (12:20)
[2024-06-23 12:39] VITALS: TEMP 98.5
[2024-06-23 12:49] LABS: KETONE, URINE AUTO RFX NEGATIVE (NEGATIVE); MUCUS, URINE RFX LARGE (NEGATIVE); NITRITE, URINE AUTO RFX NEGATIVE (NEGATIVE); RBC, URINE AUTO RFX 0 /HPF (0-3); SQUAM EPITHELIAL CELL UR AURFX 7 /HPF (0-6); WBC, URINE AUTO RFX 2 /HPF (0-3)
[2024-06-23 12:53] LABS: LEUKOCYTE ESTERASE UR AUTO RFX TRACE (NEGATIVE)
[2024-06-23] MEDS: NS 500 ML IV ONE (13:50)
[2024-06-23] MEDS: diphenhydrAMINE 50MG/ML VIAL IV ONE (13:50)
[2024-06-23] MEDS: ACETAMINOPHEN *IV* 1,000 MG in IV 1 EA IV ONE (13:50)
[2024-06-23 15:32] VITALS: BP 146/67; O2SAT 97
[2024-06-23] MEDS ORDERED: NITR100C3 PO (15:55)
== END 2024-06-23 16:11 | disposition home or self-care (01) ==
LOC: M ED 10:39
DX: N39.0 Urinary tract infection, site not specified (principal); B34.1 Enterovirus infection, unspecified; F10.10 Alcohol abuse, uncomplicated; Z87.891 Personal history of nicotine dependence; Z88.8 Allergy status to other drugs, medicaments and biological substances; Z91.018 Allergy to other foods; Z79.51 Long term (current) use of inhaled steroids; Z79.1 Long term (current) use of non-steroidal anti-inflammatories (NSAID); Z79.899 Other long term (current) drug therapy
CPT/HCPCS: 80048; 80076; 81001; 83690; 85025; 87086; 87486; 87581; 87633; 87798; 96374; 96375; 99284; J0131; J1100; J1200

== ENCOUNTER 2024-07-10 10:22 | Emergency (ER) | payer OTHER ==
[~2024-07-10] VITALS: Ht 167.6 cm; Wt 136.8 kg
[~2024-07-10 10:22] MED LIST changes: +NITR100C3 PO
[2024-07-10] MEDS: KETOROLAC 30 MG/ML 1ML VIAL IM ONE (18:15)
[2024-07-10 18:30] VITALS: BP 128/73; TEMP 97.6; O2SAT 99
== END 2024-07-10 18:34 | disposition home or self-care (01) ==
LOC: EDBD 10:22 → M ED 10:22
DX: S80.02XA Contusion of left knee, initial encounter (principal); S93.402A Sprain of unspecified ligament of left ankle, initial encounter; Y92.410 Unspecified street and highway as the place of occurrence of the external cause; Y93.9 Activity, unspecified; Y99.9 Unspecified external cause status; W00.0XXA Fall on same level due to ice and snow, initial encounter; Z88.8 Allergy status to other drugs, medicaments and biological substances; Z91.018 Allergy to other foods; Z79.51 Long term (current) use of inhaled steroids; Z79.1 Long term (current) use of non-steroidal anti-inflammatories (NSAID); Z79.2 Long term (current) use of antibiotics; Z79.899 Other long term (current) drug therapy
CPT/HCPCS: 72125; 73030; 73564; 73610; 96372; 99284; J1885

== ENCOUNTER → 2024-08-03 | Outpatient (CLI) | payer OTHER | LOC: M SOG 07:57 | PROVIDERS: ATTEND Physician Assistant | DX: M25.552 Pain in left hip (principal) ==

== ENCOUNTER → 2024-08-12 | Outpatient (REF) | payer OTHER ==
[2024-08-12 15:21] LABS: BASO % 0.3 % (0.0-1.0); EOS # 0.3 10^3/uL (0.0-0.5); EOS % 2.7 % (0.0-3.0); HEMATOCRIT 42.6 % (36.0-47.0); HEMOGLOBIN 13.5 g/dl (12.0-15.5); LYMPH # 2.5 10^3/uL (1.5-5.0); LYMPH % 25.7 % (24.0-44.0); MEAN CORPUSCULAR HEMOGLOBIN 27.9 pg (27.0-33.0); MEAN CORPUSCULAR HGB CONC 31.7 g/dl (32.0-36.5); MONO # 0.4 10^3/uL (0.0-0.8); MONO % 4.3 % (2.0-8.0); NEUTROPHILS # 6.5 10^3/uL (1.5-8.5); NEUTROPHILS % 66.3 % (36.0-66.0); PLATELET COUNT, AUTOMATED 388 10^3/uL (150-450); RED BLOOD COUNT 4.84 10^6/uL (4.00-5.40); WHITE BLOOD COUNT 9.8 10^3/uL (4.0-10.0)
== END ==
LOC: M LABWUC 14:22
PROVIDERS: ATTEND Physician Assistant
DX: R04.0 Epistaxis (principal)

== ENCOUNTER 2024-08-16 23:20 | Emergency (ER) | payer OTHER ==
[~2024-08-16] VITALS: Ht 167.6 cm; Wt 138.6 kg
[2024-08-17 05:01] LABS: URINE PREG TEST NEGATIVE (NEGATIVE)
[2024-08-17] MEDS: IPRATROPIUM 0.5MG/ALBUTEROL 2.5MG INH SOL UD 3ML (DUONEB) NEB ONE ×3 (05:18→07:30)
[2024-08-17] MEDS: MAG SULF 1GM/100ML (MAG RUN) 1 GM in IV 1 EA IV ONE (06:36)
[2024-08-17 06:43] LABS: BASO % 0.3 % (0.0-1.0); EOS # 0.6 10^3/uL (0.0-0.5); EOS % 4.3 % (0.0-3.0); HEMATOCRIT 40.3 % (36.0-47.0); HEMOGLOBIN 13.1 g/dl (12.0-15.5); LYMPH # 2.9 10^3/uL (1.5-5.0); LYMPH % 21.7 % (24.0-44.0); MEAN CORPUSCULAR HEMOGLOBIN 28.7 pg (27.0-33.0); MEAN CORPUSCULAR HGB CONC 32.5 g/dl (32.0-36.5); MEAN CORPUSCULAR VOLUME 88.4 fl (80.0-96.0); MONO # 0.7 10^3/uL (0.0-0.8); MONO % 5.4 % (2.0-8.0); NEUTROPHILS # 8.9 10^3/uL (1.5-8.5); NEUTROPHILS % 67.3 % (36.0-66.0); PLATELET COUNT, AUTOMATED 322 10^3/uL (150-450); RED BLOOD COUNT 4.56 10^6/uL (4.00-5.40); WHITE BLOOD COUNT 13.2 10^3/uL (4.0-10.0)
[2024-08-17 07:11] LABS: ALKALINE PHOSPHATASE 114 U/L (35-104); ALT/SGPT 25 U/L (7.0-40); AST/SGOT 33 U/L (<34); BILIRUBIN,TOTAL 0.3 MG/DL (0.3-1.2); BLOOD UREA NITROGEN 12 MG/DL (9-23); CALCIUM LEVEL 8.4 MG/DL (8.5-10.1); CARBON DIOXIDE LEVEL 20 MMOL/L (20-31); CHLORIDE LEVEL 108 MMOL/L (98-107); CREATININE FOR GFR 0.47 MG/DL (0.55-1.30); GLOMERULAR FILTRATION RATE > 60.0 (>60); GLUCOSE, FASTING 116 MG/DL (60-100); POTASSIUM SERUM 4.5 MMOL/L (3.5-5.1); SODIUM LEVEL 139 MMOL/L (136-145)
[2024-08-17] MEDS: cefTRIAXone SOD 1 GM in DEXTROSE 5% (D5W) ADV/MINI-BAG 50 ML IV ONE (07:37)
[2024-08-17] MEDS ORDERED: MAG SULF 1GM/100ML (MAG RUN) 1 GM in IV 1 EA IV ONE (08:00)
[2024-08-17 08:27] VITALS: O2SAT 95
[2024-08-17] MEDS: AZITHROMYCIN INJ 500 MG, VIAL MATE ADAPTER 1 EACH in NS 250 ML IV ONE (08:35)
[2024-08-17] MEDS ORDERED: CEFD1CAP9 PO (08:41)
[2024-08-17] MEDS ORDERED: ZITHTAB PO (08:41)
[2024-08-17] MEDS ORDERED: ALBU2.5V10 NEB (08:41)
[2024-08-17] MEDS ORDERED: CLEV1MIS25 XX (08:42)
[2024-08-17] MEDS ORDERED: NEBU1EAC74 MC (08:42)
[2024-08-17] MEDS ORDERED: PRED20TA PO (08:43)
[2024-08-17 10:00] VITALS: BP 137/78; TEMP 98.2; O2SAT 96
== END 2024-08-17 10:14 | disposition home or self-care (01) ==
LOC: M ED 23:20
DX: J20.9 Acute bronchitis, unspecified (principal); J45.901 Unspecified asthma with (acute) exacerbation; Z87.891 Personal history of nicotine dependence; Z88.8 Allergy status to other drugs, medicaments and biological substances; Z91.018 Allergy to other foods; Z79.51 Long term (current) use of inhaled steroids; Z79.2 Long term (current) use of antibiotics; Z79.899 Other long term (current) drug therapy; Z79.52 Long term (current) use of systemic steroids
CPT/HCPCS: 71045; 80053; 81025; 84703; 85025; 87486; 87581; 87633; 87798; 94640; 96365; 96366; 99285; J0456; J0696; J1100; J3475

== ENCOUNTER → 2024-08-27 | Outpatient (CLI) | payer OTHER ==
[~2024-08-27] MED LIST changes: +ALBU2.5V10 NEB; +CLEV1MIS25 XX; +ISOVUE-370 76% 100ML VIAL As Ordered ONE; +NEBU1EAC74 MC; +ZITHTAB PO
== END ==
LOC: M RAD 08:53
PROVIDERS: ATTEND Surgery
DX: R10.9 Unspecified abdominal pain (principal)
CPT/HCPCS: 74160; Q9967

== ENCOUNTER 2024-09-07 20:27 | Emergency (ER) | payer OTHER ==
[~2024-09-07] VITALS: Ht 167.6 cm; Wt 140.0 kg
[~2024-09-07 20:27] MED LIST changes: -ISOVUE-370 76% 100ML VIAL As Ordered ONE
[2024-09-07 20:33] VITALS: TEMP 97.5
[2024-09-07 21:35] LABS: BASO % 0.2 % (0.0-1.0); EOS # 0.3 10^3/uL (0.0-0.5); EOS % 2.6 % (0.0-3.0); HEMATOCRIT 39.9 % (36.0-47.0); LYMPH # 2.9 10^3/uL (1.5-5.0); LYMPH % 24.8 % (24.0-44.0); MEAN CORPUSCULAR HEMOGLOBIN 28.7 pg (27.0-33.0); MEAN CORPUSCULAR HGB CONC 32.6 g/dl (32.0-36.5); MEAN CORPUSCULAR VOLUME 88.1 fl (80.0-96.0); MONO # 0.8 10^3/uL (0.0-0.8); MONO % 6.6 % (2.0-8.0); NEUTROPHILS # 7.5 10^3/uL (1.5-8.5); NEUTROPHILS % 65.2 % (36.0-66.0); PLATELET COUNT, AUTOMATED 366 10^3/uL (150-450); RED BLOOD COUNT 4.53 10^6/uL (4.00-5.40); WHITE BLOOD COUNT 11.5 10^3/uL (4.0-10.0)
[2024-09-07 22:04] LABS: ALKALINE PHOSPHATASE 126 U/L (35-104); ALT/SGPT 21 U/L (7.0-40); AST/SGOT 12 U/L (<34); BILIRUBIN,TOTAL < 0.2 MG/DL (0.3-1.2); BLOOD UREA NITROGEN 12 MG/DL (9-23); CALCIUM LEVEL 8.7 MG/DL (8.5-10.1); CARBON DIOXIDE LEVEL 20 MMOL/L (20-31); CHLORIDE LEVEL 109 MMOL/L (98-107); CREATININE FOR GFR 0.62 MG/DL (0.55-1.30); GLOMERULAR FILTRATION RATE > 90.0 (>60); GLUCOSE, FASTING 116 MG/DL (60-100); SODIUM LEVEL 140 MMOL/L (136-145); TOTAL PROTEIN 6.8 G/DL (5.7-8.2)
[2024-09-07] MEDS: ACETAMINOPHEN *IV* 1,000 MG in IV 1 EA IV ONE (23:25)
[2024-09-07] MEDS: NS (Normal Saline) 0.9% 1,000 ML IV ONE (23:25)
[2024-09-08] MEDS: KETOROLAC 30 MG/ML 1ML VIAL IV ONE (00:08)
[2024-09-08 02:15] VITALS: BP 116/59; O2SAT 96
== END 2024-09-08 02:22 | disposition home or self-care (01) ==
LOC: M ED 20:27
DX: R51.9 Headache, unspecified (principal); G47.33 Obstructive sleep apnea (adult) (pediatric); Z88.8 Allergy status to other drugs, medicaments and biological substances; Z91.018 Allergy to other foods; Z79.1 Long term (current) use of non-steroidal anti-inflammatories (NSAID); Z79.51 Long term (current) use of inhaled steroids; Z79.52 Long term (current) use of systemic steroids; Z79.899 Other long term (current) drug therapy
CPT/HCPCS: 70450; 80047; 80053; 85025; 96365; 96366; 96375; 99284; J0131; J1885

== ENCOUNTER 2024-09-08 10:39 | Outpatient (RCR) | payer OTHER | END 2024-09-23 | LOC: M PT 10:39 | PROVIDERS: ATTEND Physician Assistant | DX: M25.562 Pain in left knee (principal); S80.00XD Contusion of unspecified knee, subsequent encounter ==

== ENCOUNTER → 2024-09-14 | Outpatient (CLI) | payer OTHER ==
[2024-09-14 16:50] LABS: BASO % 0.3 % (0.0-1.0); EOS # 0.2 10^3/uL (0.0-0.5); EOS % 2.5 % (0.0-3.0); HEMATOCRIT 39.7 % (36.0-47.0); HEMOGLOBIN 12.9 g/dl (12.0-15.5); LYMPH % 21.4 % (24.0-44.0); MEAN CORPUSCULAR HEMOGLOBIN 28.2 pg (27.0-33.0); MEAN CORPUSCULAR HGB CONC 32.5 g/dl (32.0-36.5); MEAN CORPUSCULAR VOLUME 86.7 fl (80.0-96.0); MONO # 0.6 10^3/uL (0.0-0.8); MONO % 6.5 % (2.0-8.0); NEUTROPHILS # 6.3 10^3/uL (1.5-8.5); NEUTROPHILS % 68.2 % (36.0-66.0); PLATELET COUNT, AUTOMATED 369 10^3/uL (150-450); RED BLOOD COUNT 4.58 10^6/uL (4.00-5.40); WHITE BLOOD COUNT 9.3 10^3/uL (4.0-10.0)
[2024-09-14 17:02] LABS: ERYTHROCYTE SEDIMENTATION RATE 55 mm/hr (0-20)
[2024-09-14 17:14] LABS: ALKALINE PHOSPHATASE 132 U/L (35-104); ALT/SGPT 33 U/L (7.0-40); AST/SGOT 17 U/L (<34); BILIRUBIN,TOTAL < 0.2 MG/DL (0.3-1.2); BLOOD UREA NITROGEN 15 MG/DL (9-23); C REACTIVE PROTEIN QUANTITATIV 2.79 MG/DL (<1.0); CALCIUM LEVEL 8.7 MG/DL (8.5-10.1); CARBON DIOXIDE LEVEL 22 MMOL/L (20-31); CHLORIDE LEVEL 111 MMOL/L (98-107); CREATININE FOR GFR 0.72 MG/DL (0.55-1.30); GLOMERULAR FILTRATION RATE > 90.0 (>60); GLUCOSE, FASTING 109 MG/DL (60-100); POTASSIUM SERUM 3.6 MMOL/L (3.5-5.1); SODIUM LEVEL 142 MMOL/L (136-145); TOTAL PROTEIN 6.7 G/DL (5.7-8.2)
[2024-09-14 17:15] LABS: IMMUNOGLOBULIN A 184.9 MG/DL (40-350)
== END ==
LOC: M LAB 16:23
PROVIDERS: ATTEND Nurse Practitioner Family
DX: R19.4 Change in bowel habit (principal)

== ENCOUNTER → 2024-10-07 | Outpatient (CLI) | payer OTHER ==
[~2024-10-07] MED LIST changes: +CLOP75TA2; +LAMO-18 PO; -LAMO25TA4 PO
== END ==
LOC: M RAD 08:54
PROVIDERS: ATTEND Nurse Practitioner Family
DX: D18.00 Hemangioma unspecified site (principal)

== ENCOUNTER 2024-10-12 18:52 | Emergency (ER) | payer OTHER ==
[~2024-10-12] VITALS: Ht 167.6 cm; Wt 142.3 kg
[~2024-10-12 18:52] MED LIST changes: -CLOP75TA2
[2024-10-12] MEDS ORDERED: CLOP75TA2 (19:24)
[2024-10-12] MEDS: NS 500 ML IV ONE (21:20)
[2024-10-12 21:28] LABS: APPEARANCE, URINE HAZY (CLEAR); BACTERIA, URINE AUTO NEGATIVE (NEGATIVE); BILIRUBIN, URINE AUTO NEGATIVE (NEGATIVE); BLOOD, URINE BLOOD NEGATIVE (NEGATIVE); COLOR, URINE YELLOW (YELLOW); GLUCOSE, URINE (UA) AUTO NEGATIVE (NEGATIVE); KETONE, URINE AUTO NEGATIVE (NEGATIVE); LEUKOCYTE ESTERASE, URINE AUTO NEGATIVE (NEGATIVE); MUCUS, URINE SMALL (NEGATIVE); NITRITE, URINE AUTO NEGATIVE (NEGATIVE); PROTEIN, URINE AUTO NEGATIVE (NEGATIVE); RBC, URINE AUTO 1 /HPF (0-3); SPECIFIC GRAVITY URINE AUTO 1.014 (1.002-1.035); SQUAMOUS EPITHELIAL CELL UR AU 1 /HPF (0-6); UROBILINOGEN, URINE AUTO 0.2 mg/dL (0.0-2.0); WBC, URINE AUTO 0 /HPF (0-3)
[2024-10-12 21:30] LABS: BASO % 0.4 % (0.0-1.0); EOS # 0.4 10^3/uL (0.0-0.5); EOS % 3.5 % (0.0-3.0); HEMATOCRIT 40.9 % (36.0-47.0); HEMOGLOBIN 13.3 g/dl (12.0-15.5); LYMPH # 2.7 10^3/uL (1.5-5.0); MEAN CORPUSCULAR HEMOGLOBIN 29.2 pg (27.0-33.0); MEAN CORPUSCULAR HGB CONC 32.5 g/dl (32.0-36.5); MEAN CORPUSCULAR VOLUME 89.7 fl (80.0-96.0); MONO # 0.6 10^3/uL (0.0-0.8); MONO % 5.7 % (2.0-8.0); NEUTROPHILS # 7.5 10^3/uL (1.5-8.5); NEUTROPHILS % 65.9 % (36.0-66.0); PLATELET COUNT, AUTOMATED 370 10^3/uL (150-450); RED BLOOD COUNT 4.56 10^6/uL (4.00-5.40); WHITE BLOOD COUNT 11.3 10^3/uL (4.0-10.0)
[2024-10-12 21:53] LABS: ALBUMIN 3.4 G/DL (3.2-5.2); ALKALINE PHOSPHATASE 133 U/L (35-104); ALT/SGPT 21 U/L (7.0-40); AST/SGOT 27 U/L (<34); BILIRUBIN,TOTAL 0.2 MG/DL (0.3-1.2); BLOOD UREA NITROGEN 14 MG/DL (9-23); CALCIUM LEVEL 8.8 MG/DL (8.5-10.1); CARBON DIOXIDE LEVEL 23 MMOL/L (20-31); CHLORIDE LEVEL 108 MMOL/L (98-107); CREATININE FOR GFR 0.68 MG/DL (0.55-1.30); GLOMERULAR FILTRATION RATE > 90.0 (>58); GLUCOSE, FASTING 93 MG/DL (60-100); POTASSIUM SERUM 4.4 MMOL/L (3.5-5.1); SODIUM LEVEL 140 MMOL/L (136-145); TOTAL PROTEIN 7.3 G/DL (5.7-8.2)
[2024-10-12] MEDS: PROCHLORPERAZINE 10MG/2ML VIAL IV ONE (22:15)
[2024-10-12] MEDS: ACETAMINOPHEN *IV* 1,000 MG in IV 1 EA IV ONE (22:16)
[2024-10-12] MEDS: KETOROLAC 30 MG/ML 1ML VIAL IV ONE (22:57)
[2024-10-12 23:45] VITALS: BP 103/53; TEMP 97.4; O2SAT 98
== END 2024-10-12 23:55 | disposition home or self-care (01) ==
LOC: M ED 18:52
DX: R51.9 Headache, unspecified (principal); R00.1 Bradycardia, unspecified; I10 Essential (primary) hypertension; J45.909 Unspecified asthma, uncomplicated; E78.5 Hyperlipidemia, unspecified; F43.10 Post-traumatic stress disorder, unspecified; F31.9 Bipolar disorder, unspecified; Z88.8 Allergy status to other drugs, medicaments and biological substances; Z91.018 Allergy to other foods; Z79.1 Long term (current) use of non-steroidal anti-inflammatories (NSAID); Z79.2 Long term (current) use of antibiotics; Z79.51 Long term (current) use of inhaled steroids; Z79.52 Long term (current) use of systemic steroids; Z79.899 Other long term (current) drug therapy
CPT/HCPCS: 70450; 80053; 81001; 85025; 93005; 96361; 96365; 96366; 96375; 99284; J0131; J0780; J1885

== ENCOUNTER → 2024-12-04 | Outpatient (CLI) | payer OTHER ==
[~2024-12-04] MED LIST changes: +CLOP75TA2; +DIVA-41; -DIVA500T94; +HOLTER MONITOR XX
[2024-12-04 11:38] LABS: BASO # 0.0 10^3/uL (0.0-0.2); BASO % 0.3 % (0.0-1.0); EOS # 0.2 10^3/uL (0.0-0.5); EOS % 2.0 % (0.0-3.0); LYMPH # 1.7 10^3/uL (1.5-5.0); LYMPH % 19.6 % (24.0-44.0); MONO # 0.6 10^3/uL (0.0-0.8); MONO % 6.8 % (2.0-8.0); NEUTROPHILS # 6.3 10^3/uL (1.5-8.5); NEUTROPHILS % 71.0 % (36.0-66.0); PLATELET COUNT, AUTOMATED 310 10^3/uL (150-450)
[2024-12-06 02:18] LABS: T P ELECTROPHORESIS SO 6.6 g/dL (6.1-8.1)
== END ==
LOC: M LAB 11:01
PROVIDERS: ATTEND Ophthalmology
DX: R70.1 Abnormal plasma viscosity (principal)

== ENCOUNTER → 2024-12-24 | Outpatient (REF) | payer OTHER ==
[~2024-12-24] MED LIST changes: +CIPR250T3 PO
== END ==
LOC: M LAB REF 17:22
PROVIDERS: ATTEND Student in an Organized Health Care Education/Training Program
DX: R30.0 Dysuria (principal)

== ENCOUNTER → 2024-12-24 | Outpatient (REF) | payer OTHER ==
[~2024-12-24] MED LIST changes: -CIPR250T3 PO
[2024-12-24 18:13] LABS: CALCIUM LEVEL 8.9 MG/DL (8.5-10.1); CARBON DIOXIDE LEVEL 25 MMOL/L (20-31); CHLORIDE LEVEL 106 MMOL/L (98-107); CREATININE FOR GFR 0.61 MG/DL (0.55-1.30); GLOMERULAR FILTRATION RATE > 90.0 (>58); POTASSIUM SERUM 3.9 MMOL/L (3.5-5.1); SODIUM LEVEL 143 MMOL/L (136-145)
== END ==
LOC: M LABWUC 17:23
PROVIDERS: ATTEND Student in an Organized Health Care Education/Training Program
DX: R34 Anuria and oliguria (principal)

== ENCOUNTER 2024-12-28 12:22 | Emergency (ER) | payer OTHER ==
[~2024-12-28] VITALS: Ht 167.6 cm; Wt 137.0 kg
[2024-12-28] MEDS: ONDANSETRON 4MG 2ML VIAL IV ONE (17:11)
[2024-12-28 17:20] LABS: BASO # 0.0 10^3/uL (0.0-0.2); BASO % 0.3 % (0.0-1.0); EOS # 0.3 10^3/uL (0.0-0.5); EOS % 2.0 % (0.0-3.0); LYMPH # 2.3 10^3/uL (1.5-5.0); LYMPH % 16.4 % (24.0-44.0); MONO # 0.6 10^3/uL (0.0-0.8); MONO % 4.5 % (2.0-8.0); NEUTROPHILS # 10.5 10^3/uL (1.5-8.5); NEUTROPHILS % 76.2 % (36.0-66.0); PLATELET COUNT, AUTOMATED 321 10^3/uL (150-450)
[2024-12-28 17:27] LABS: KETONE, URINE AUTO RFX NEGATIVE (NEGATIVE); MUCUS, URINE RFX SMALL (NEGATIVE); NITRITE, URINE AUTO RFX NEGATIVE (NEGATIVE); RBC, URINE AUTO RFX 27 /HPF (0-3); SQUAM EPITHELIAL CELL UR AURFX 61 /HPF (0-6)
[2024-12-28 17:33] LABS: LEUKOCYTE ESTERASE UR AUTO RFX 3+ (NEGATIVE); WBC, URINE AUTO RFX 11 /HPF (0-3)
[2024-12-28 17:47] LABS: ALT/SGPT 27 U/L (7.0-40); AST/SGOT 32 U/L (<34); CALCIUM LEVEL 8.7 MG/DL (8.5-10.1); CARBON DIOXIDE LEVEL 25 MMOL/L (20-31); CHLORIDE LEVEL 105 MMOL/L (98-107); CK-MB VALUE MASS 1.3 NG/ML (<3.6); CPK CREATINE PHOSPHOKINASE 46 U/L (34-145); CREATININE FOR GFR 0.53 MG/DL (0.55-1.30); GLOMERULAR FILTRATION RATE > 90.0 (>58); MB/CK RELATIVE INDEX 2.82 (< OR =4); POTASSIUM SERUM 4.5 MMOL/L (3.5-5.1); SODIUM LEVEL 141 MMOL/L (136-145)
[2024-12-28 20:14] LABS: CK-MB VALUE MASS 1.3 NG/ML (<3.6); CPK CREATINE PHOSPHOKINASE 69.0 U/L (34-145); MB/CK RELATIVE INDEX 1.88 (< OR =4)
[2024-12-28] MEDS ORDERED: CIPR250T3 PO (20:30)
[2024-12-28] MEDS: CIPROFLOXACIN 500 MG TABLET PO ONE (20:46)
[2024-12-28 20:47] VITALS: BP 113/68; TEMP 97.6; O2SAT 98
== END 2024-12-28 20:59 | disposition home or self-care (01) ==
LOC: M ED 12:22
DX: N30.00 Acute cystitis without hematuria (principal); K80.20 Calculus of gallbladder without cholecystitis without obstruction; R16.0 Hepatomegaly, not elsewhere classified; Z88.8 Allergy status to other drugs, medicaments and biological substances; Z91.018 Allergy to other foods; Z79.51 Long term (current) use of inhaled steroids; Z79.1 Long term (current) use of non-steroidal anti-inflammatories (NSAID); Z79.2 Long term (current) use of antibiotics; Z79.899 Other long term (current) drug therapy; Z79.52 Long term (current) use of systemic steroids
CPT/HCPCS: 71045; 74176; 80048; 80076; 81001; 82550; 82553; 83690; 83880; 84484; 85025; 87086; 93005; 96374; 99284; J2405

== ENCOUNTER → 2025-02-10 | Outpatient (CLI) | payer OTHER ==
[~2025-02-10] MED LIST changes: +AIMO70IN2 INJ; +ALPR1TAB3 PO; +CIPR250T3 PO; -CLOP75TA2; +CLOP75TA2 PO; -IBUP-1022 PO; +IBUP600T42 PO; +SYMB80INH INH; +TOPA50TA8 PO; +TRAZ-257 PO; -VERA120C3 PO; +VERA120C9 PO; +VILA20TA PO
== END ==
LOC: M WUC 10:49
PROVIDERS: ATTEND Student in an Organized Health Care Education/Training Program
DX: J45.21 Mild intermittent asthma with (acute) exacerbation (principal)

== ENCOUNTER 2025-02-11 16:41 | Emergency (ER) | payer OTHER ==
[~2025-02-11] VITALS: Ht 167.6 cm; Wt 137.7 kg
[~2025-02-11 16:41] MED LIST changes: -AIMO70IN2 INJ; -ALPR1TAB3 PO; -SYMB80INH INH; -TOPA50TA8 PO; -TRAZ-257 PO; -VILA20TA PO
[2025-02-11 17:01] VITALS: TEMP 98
[2025-02-11 18:09] LABS: BASO # 0.0 10^3/uL (0.0-0.2); BASO % 0.3 % (0.0-1.0); EOS # 0.5 10^3/uL (0.0-0.5); EOS % 5.7 % (0.0-3.0); LYMPH # 2.0 10^3/uL (1.5-5.0); LYMPH % 21.1 % (24.0-44.0); MONO # 0.7 10^3/uL (0.0-0.8); MONO % 7.4 % (2.0-8.0); NEUTROPHILS # 6.2 10^3/uL (1.5-8.5); NEUTROPHILS % 65.0 % (36.0-66.0); PLATELET COUNT, AUTOMATED 339 10^3/uL (150-450)
[2025-02-11 18:13] LABS: CALCIUM LEVEL 8.5 MG/DL (8.5-10.1); CARBON DIOXIDE LEVEL 26 MMOL/L (20-31); CHLORIDE LEVEL 105 MMOL/L (98-107); CK-MB VALUE MASS 1.4 NG/ML (<3.6); CREATININE FOR GFR 0.66 MG/DL (0.55-1.30); GLOMERULAR FILTRATION RATE > 90.0 (>58); MAGNESIUM LEVEL 1.9 MG/DL (1.8-2.4); POTASSIUM SERUM 3.6 MMOL/L (3.5-5.1); SODIUM LEVEL 137 MMOL/L (136-145)
[2025-02-11 18:15] LABS: CPK CREATINE PHOSPHOKINASE 31.0 U/L (34-145); MB/CK RELATIVE INDEX 4.51 (< OR =4)
[2025-02-11 18:17] LABS: FREE T4 1.2 NG/DL (0.89-1.76)
[2025-02-11] MEDS: ONDANSETRON 4MG 2ML VIAL IV ONE (18:50)
[2025-02-11] MEDS ORDERED: TRAZ-257 PO (19:01)
[2025-02-11] MEDS ORDERED: ALPR1TAB3 PO (19:01)
[2025-02-11] MEDS ORDERED: VILA20TA PO (19:01)
[2025-02-11] MEDS ORDERED: AIMO70IN2 INJ (19:01)
[2025-02-11] MEDS ORDERED: SYMB80INH INH (19:01)
[2025-02-11] MEDS ORDERED: TOPA50TA8 PO (19:03)
[2025-02-11] MEDS ORDERED: ACET50CA PO (19:03)
[2025-02-11] MEDS ORDERED: HOME MED LIST COMPLETE! XX SCH (19:05)
[2025-02-11 23:10] LABS: CK-MB VALUE MASS 1.0 NG/ML (<3.6)
[2025-02-11 23:11] LABS: CPK CREATINE PHOSPHOKINASE 21.0 U/L (34-145); MB/CK RELATIVE INDEX 4.76 (< OR =4)
[2025-02-12 01:15] VITALS: O2SAT 99
[2025-02-12 01:30] VITALS: BP 131/81
== END 2025-02-12 02:07 | disposition home or self-care (01) ==
LOC: M ED 16:41 → EDBD 16:41 → M ED 02-12 02:07
DX: H81.4 Vertigo of central origin (principal); I10 Essential (primary) hypertension; J45.909 Unspecified asthma, uncomplicated; K21.9 Gastro-esophageal reflux disease without esophagitis; F31.9 Bipolar disorder, unspecified; F90.9 Attention-deficit hyperactivity disorder, unspecified type; Z88.8 Allergy status to other drugs, medicaments and biological substances; Z91.018 Allergy to other foods; Z79.51 Long term (current) use of inhaled steroids; Z79.899 Other long term (current) drug therapy
CPT/HCPCS: 70450; 70544; 70551; 71045; 80048; 82550; 82553; 83735; 84439; 84443; 84484; 85025; 93005; 93041; 94760; 96374; 99285; J2405

== ENCOUNTER 2025-03-31 21:01 | Emergency (ER) | payer OTHER ==
[~2025-03-31] VITALS: Ht 167.6 cm; Wt 137.5 kg
[~2025-03-31 21:01] MED LIST changes: +AIMO70IN2 INJ; +ALPR1TAB3 PO; +SYMB80INH INH; +TOPA50TA8 PO; +TRAZ-257 PO; +VILA20TA PO
[2025-03-31 21:03] VITALS: TEMP 97.4
[2025-04-01] MEDS: KETOROLAC TROMETHAMINE 10 MG TAB PO ONE (00:05)
[2025-04-01] MEDS ORDERED: METHOCARBAMOL 1,000 MG/10 ML VIAL IV ONE (00:50)
[2025-04-01] MEDS ORDERED: ACETAMINOPHEN *IV* 1,000 MG in IV 1 EA IV ONE (00:50)
[2025-04-01] MEDS: ACETAMINOPHEN 500 MG TAB PO ONE (01:46)
[2025-04-01 02:00] VITALS: BP 102/57
[2025-04-01 02:01] VITALS: O2SAT 100
== END 2025-04-01 02:10 | disposition home or self-care (01) ==
LOC: M ED 21:01
DX: G43.909 Migraine, unspecified, not intractable, without status migrainosus (principal); I10 Essential (primary) hypertension; J45.909 Unspecified asthma, uncomplicated; Z86.73 Personal history of transient ischemic attack (TIA), and cerebral infarction without residual deficits; Z88.8 Allergy status to other drugs, medicaments and biological substances; Z91.018 Allergy to other foods; Z79.51 Long term (current) use of inhaled steroids; Z79.899 Other long term (current) drug therapy

== ENCOUNTER 2025-04-18 20:07 | Emergency (ER) | payer OTHER ==
[~2025-04-18] VITALS: Ht 167.6 cm; Wt 138.2 kg
[~2025-04-18 20:07] MED LIST changes: -LABE100T6 PO; +LABE100T91 PO
[2025-04-18 20:09] VITALS: TEMP 98; O2SAT 100
[2025-04-18 21:49] LABS: BASO # 0.0 10^3/uL (0.0-0.2); BASO % 0.3 % (0.0-1.0); EOS # 0.2 10^3/uL (0.0-0.5); EOS % 1.5 % (0.0-3.0); LYMPH # 2.4 10^3/uL (1.5-5.0); LYMPH % 15.4 % (24.0-44.0); MONO # 0.8 10^3/uL (0.0-0.8); MONO % 5.2 % (2.0-8.0); NEUTROPHILS # 11.8 10^3/uL (1.5-8.5); NEUTROPHILS % 77.1 % (36.0-66.0); PLATELET COUNT, AUTOMATED 330 10^3/uL (150-450)
[2025-04-18 22:05] LABS: CALCIUM LEVEL 8.5 MG/DL (8.5-10.1); CARBON DIOXIDE LEVEL 22 MMOL/L (20-31); CHLORIDE LEVEL 108 MMOL/L (98-107); CREATININE FOR GFR 0.55 MG/DL (0.55-1.30); GLOMERULAR FILTRATION RATE > 90.0 (>58); MAGNESIUM LEVEL 1.8 MG/DL (1.8-2.4); POTASSIUM SERUM 4.4 MMOL/L (3.5-5.1); SODIUM LEVEL 141 MMOL/L (136-145)
[2025-04-18 22:07] LABS: FREE T4 1.03 NG/DL (0.89-1.76)
[2025-04-18 22:16] LABS: HCG, SERUM QUALITATIVE NEGATIVE (NEGATIVE)
[2025-04-18] MEDS ORDERED: ISOVUE-370 76% 100 ML VIAL As Ordered ONE (22:17)
[2025-04-18] MEDS: ACETAMINOPHEN *IV* 1,000 MG in IV 1 EA IV ONE (23:10)
[2025-04-19 01:55] VITALS: BP 189/88
== END 2025-04-19 01:45 | disposition home or self-care (01) ==
LOC: M ED 20:07
DX: R55 Syncope and collapse (principal); S01.01XA Laceration without foreign body of scalp, initial encounter; S06.9X9A Unspecified intracranial injury with loss of consciousness of unspecified duration, initial encounter; M25.511 Pain in right shoulder; M25.562 Pain in left knee; W19.XXXA Unspecified fall, initial encounter; Y92.002 Bathroom of unspecified non-institutional (private) residence as the place of occurrence of the external cause; Y93.89 Activity, other specified; Y99.9 Unspecified external cause status; I10 Essential (primary) hypertension; J45.909 Unspecified asthma, uncomplicated; F31.9 Bipolar disorder, unspecified; F90.9 Attention-deficit hyperactivity disorder, unspecified type; G43.909 Migraine, unspecified, not intractable, without status migrainosus; G47.33 Obstructive sleep apnea (adult) (pediatric); R01.1 Cardiac murmur, unspecified; Z88.8 Allergy status to other drugs, medicaments and biological substances; Z79.899 Other long term (current) drug therapy; K80.20 Calculus of gallbladder without cholecystitis without obstruction; Z79.51 Long term (current) use of inhaled steroids
CPT/HCPCS: 70450; 71275; 72125; 73030; 73564; 74176; 80048; 83735; 84439; 84443; 84703; 85025; 87486; 87581; 87633; 87798; 93005; 96365; 99284; J0134; Q9967